=== PATIENT | female | born 1930 | race African-American/Black ===

== ENCOUNTER 2017-08-18 14:47 | Inpatient (IN) | payer OTHER, MEDICARE ==
[~2017-08-18] VITALS: Ht 160 cm; Wt 54.9 kg
[~2017-08-18 14:47] MED LIST: ACULAR 0.5%5 ML OS; ASPIRIN EC81 M1 PO; LISINOPRIL AND1 TA1 PO; MULTI-DAY PLUS1 EAC1 PO; POLYTRIM O200 GTT/BO OP; TRIAMCINOLONE A80 GM TOP; VITAMIN E400 UNI2 PO; XALATAN 0.50 GTT/1 B OPH; XARELTO20 MG PO
[2017-08-18 16:12] LABS: ABSOLUTE BASOPHIL COUNT 0 /CUMM (0.0-0.2); ABSOLUTE EOSINOPHIL COUNT 0 /CUMM (0.0-0.7); ABSOLUTE GRANULOCYTE CT 2.2 /CUMM (1.4-6.5); ABSOLUTE LYMPH COUNT 0.9 /CUMM (1.2-3.4); ABSOLUTE MONOCYTE COUNT 0.3 /CUMM (0.10-0.60); BASOPHIL % 0.5 % (0.0-2.0); EOSINOPHIL % 1.2 % (0-5); GRANULOCYTE % 64.4 % (42.2-75.2); HEMATOCRIT 33.2 % (37-47); MEAN CORPUSCULAR HGB 32.5 PG (27.0-31.0); MEAN CORPUSCULAR VOLUME 98.4 FL (81.0-99.0); MEAN PLATELET VOLUME 8.3 FL (7.4-10.4); RBC DISTRIBUTION WIDTH 12.8 % (11.5-14.5); RED BLOOD CELL CT 3.38 /CUMM (4.20-5.40); WHITE BLOOD CELL COUNT 3.4 /CUMM (4.8-10.8)
[2017-08-18 16:24] LABS: PLATELET COUNT 189 /CUMM (130-400)
--- NOTE | 2017-08-18 17:49 | ED SYNCOPE COMPLAINT ---
History of Present Illness General Chief Complaint: Syncope and Near-Syncope Stated Complaint: ?PRESYNCOPE PER DAUGHTER Source: patient, family, old records Exam Limitations: no limitations Vital Signs & Intake/Output Vital Signs & Intake/Output Vital Signs Date Time Temp Pulse Resp B/P B/P Pulse O2 O2 Flow FiO2 Mean Ox Delivery Rate 08/18 2244 98.4 57 18 154/68 100 Room Air 08/18 1750 Room Air 08/18 1747 98.6 66 18 166/76 100 Room Air 08/18 1453 98.0 80 18 176/88 95 Room Air Allergies Coded Allergies: NO KNOWN ALLERGIES (11/25/15) Triage Note: 86 YEAR OLD FEMALE TO ER WITH HER DAUGHTER, PT OFFERS NO COMPLAINTS AT THIS TIME, DAUGHTER STATES THAT THEY WERE SITTING AT THE KITCHEN TABLE, PT HAD JUST FINISHED EATING WHEN SHE BLACKED OUT, DAUGHTER CALLED 911 AND AMBULANCE CAME, PT WAS AWAKE AND ALERT ON THERE ARRIVAL AND PT REFUSED TO COME TO ER. PT STATES THAT SHE WAS FINE DOES NOT REMEMBER ANYTHING BUT WAKING UP. PT HAS MULTIPLE EPISODES OF SYNCOPE IN THE PAST PER DAUGHTER. DENIES CP/SOB/DIZZINESS, NO COMPLAINTS AT ALL AT THIS TIME Triage Nurses Notes Reviewed? yes Timing: single episode today Precipitating Factors: none Context: EATING Loss of Consciousness: brief (seconds) HPI: 86YO female with hx of afib on eliquis, HTN, PE (02/2016) BIBA from daughter's house for syncopal episode prior to arrival. Patient states that she does not remember the episode well however she does remember waking up after blacking out , unsure about prodromal symptoms. Patient's daughter states that they were having a meal when the patient passed out. Patient was unconscious for under 60 seconds. Patient states that since she came to she has had no symptoms, she feels in her usual state of health. Patient's daughter states that she has had between 4 and 5 previous syncopal episodes which were never evaluated within the past 2 years. The patient denies recent fall or head trauma, chest pain, dyspnea, abdominal pain, fevers, chills, nausea. (Alicia HAWLEY,Shanthi Jones) Reconcile Medications Apixaban (Eliquis) 5 MG TABLET 1 TAB PO BID BLOOD THINNER (Reported) Calcium Carbonate/Vitamin D3 (Calcium 500 + D Tablet) (Unknown Strength) TABLET (Unknown Dose) PO DAILY SUPPLEMENT (Reported) Dorzolamide HCl/Timolol Maleat (Cosopt Eye Drops) 22.3 MG-6.8 MG/ML DROPS 1 GTT OU BID BOTH EYES (Reported) Latanoprost 0.005 % DROPS 1 GTT OU QPM BOTH EYES (Reported) Multivitamin-Min/Iron/FA/Vit K (Multi-Day Plus Minerals Tablet) 18 MG IRON-400 MCG-25 MCG TABLET 1 TAB PO DAILY SUPPLEMENT (Reported) Nifedipine (Nifedipine ER) 60 MG TAB.ER.24 1 TAB PO DAILY BP (Reported) Triamcinolone Acetonide 80 GM OINT...G. 1 KERA TOP BID PRN rash apply to affected area(s) Valsartan/Hydrochlorothiazide (Valsartan-Hctz 160-12.5 MG Tab) 160 MG-12.5 MG TABLET 1 TAB PO DAILY BP (Reported) Vitamin E Mixed (Vitamin E) (Unknown Strength) TABLET (Unknown Dose) PO DAILY SUPPLEMENT (Reported) (Tyesha CHAMPION,Nikhil Yip) Past History Travel History Traveled to [place] past 21 day No Medical History Any Pertinent Medical History? 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 No (Shanthi Black) Review of Systems Review of Systems Constitutional: Reports: no symptoms. EENTM: Reports: no symptoms. Respiratory: Reports: no symptoms. Cardiovascular: Reports: see HPI. GI: Reports: no symptoms. Genitourinary: Reports: no symptoms. Musculoskeletal: Reports: no symptoms. Skin: Reports: no symptoms. Neurological/Psychological: Reports: see HPI. All Other Systems: Reviewed and Negative (Shanthi Black) Physical Exam Physical Exam General Appearance: well developed/nourished, no apparent distress, alert, awake Head: atraumatic, normal appearance Eyes: Bilateral: normal appearance, PERRL, EOMI. Ears, Nose, Throat: normal pharynx, hearing grossly normal Neck: normal inspection, supple, full range of motion Respiratory: normal breath sounds, no respiratory distress, lungs clear Cardiovascular: regular rate/rhythm, normal peripheral pulses Gastrointestinal: normal bowel sounds, soft, non-tender, no organomegaly Back: normal inspection, normal range of motion Extremities: normal inspection, normal range of motion, no edema Psychiatric: awake, alert, oriented x 3 Cranial Nerves: normal hearing, normal speech, PERRL, CN II-XII normal as tested Motor/Sensory: no motor/sensory deficits Skin: intact, normal color, warm/dry Core Measures ACS in differential dx? Yes CVA/TIA Diagnosis: No Sepsis Present: No Sepsis Focused Exam Completed? No (Alicia HAWLEY,Shanthi Jones) Progress Differential Diagnosis: AMI, aortic valve, drug induced syncope, orthostatic syncope, pulmonary embolus, seizure, TIA/CVA, vasodepressor syncope Plan of Care: Orders Procedure Date/time Status Nothing by Mouth 08/19 B Active Patient Data 08/18 2229 Active Saline Lock 08/18 2225 Active Misc Message 08/18 2225 Active ED Holding Orders 08/18 222 Active Vital Signs 08/18 2225 Active Code Status 08/[address] in observation 08/18 2225 Active TROPONIN LEVEL 08/18 1905 Complete EKG 08/18 1905 Active MISTAKE 08/18 1815 Active Add-on Test (ER Only) 08/18 1807 Active D-DIMER 08/18 1604 Complete TROPONIN LEVEL 08/18 1459 Complete COMPREHENSIVE METABOLIC PANEL 08/18 1459 Complete CBC WITHOUT DIFFERENTIAL 08/18 1459 Complete EKG 08/18 1459 Active Laboratory Tests 08/18/17 1912: Troponin I 0.02 08/18/17 1604: Anion Gap 16, Estimated GFR 36 L, BUN/Creatinine Ratio 18.6, Glucose 114 H, Calcium 10.1, Total Bilirubin 0.6, AST 31, ALT 28, Alkaline Phosphatase 56, Troponin I 0.02, Total Protein 7.9, Albumin 4.2, Globulin 3.7, Albumin/Globulin Ratio 1.1, D-Dimer High Sensitivty 658 H, CBC w Diff NO MAN DIFF REQ, RBC 3.38 L, MCV 98.4, MCH 32.5 H, MCHC 33.0, RDW 12.8, MPV 8.3, Gran % 64.4, Lymphocytes % 25.6, Monocytes % 8.3, Eosinophils % 1.2, Basophils % 0.5, Absolute Granulocytes 2.2, Absolute Lymphocytes 0.9 L, Absolute Monocytes 0.3, Absolute Eosinophils 0, Absolute Basophils 0 Given the patient's syncopal episode she will likely require hospital admission and cardiology consult. The patient was signed out to Dr. Arambula pending CTA and hospital admission. Spoke with Dr. Otoole regarding this patient - requests offical consultation from house staff. Diagnostic Imaging: Viewed by Me: Radiology Read. Discussed w/RAD: Radiology Read. Radiology Impression: PATIENT: RENETTA MCDONALD PRESENT AGE: 86 PATIENT ACCOUNT NO: [id number] : 31 LOCATION: [facility] ORDERING PHYSICIAN: Shanthi HAWLEY SERVICE DATE: 08/18/17 EXAM TYPE: RAD - XRY-CHEST XRAY, TWO VIEWS EXAMINATION: XR CHEST CLINICAL INFORMATION: Syncopal episode. COMPARISON: None TECHNIQUE: 2 views of the chest were obtained. The lateral view was repeated. FINDINGS: There is no focal consolidation, edema, or effusion. There is no pneumothorax. There is mild cardiomegaly. There are multilevel degenerative changes in the thoracic spine. There is mild dextroscoliotic curvature. IMPRESSION: Mild cardiomegaly. No consolidation in the chest. DICTATED BY: Alex Breaux MD DATE/TIME DICTATED:08/18/171842 [employer]:[facility] DATE/TIME TRANSCRIBED:08/18/171842 CONFIDENTIAL, DO NOT COPY WITHOUT APPROPRIATE AUTHORIZATION. <Electronically signed in Other Vendor System> SIGNED BY: Alex Breaux MD 08/18/171848 Initial ED EKG: sinus rhythm @66bpm, first degree AV block, RBBB, nonspecific ST changes Prior EKG: unchanged (05/22/15) Repeat EKG: unchanged Hand-Off Endorsed To: Nikhil Arambula MD Endorsed Time: 2023 Pending: CT (Shanthi Black) Departure Departure Disposition: STILL A PATIENT Condition: Stable Referrals: Martha Bocanegra APRN (PCP/Family) Departure Forms: Customer Survey General Discharge Information (Shanthi Black) Departure Clinical Impression Primary Impression: Syncopal episodes Secondary Impressions: Pulmonary emboli Comments 08.18.17, 21:03... discussed with [facility]... pt with rll subsegmental PE's, "very low burden" Observation Note Sp[facility] Patient In: Non-ED OBS Care Area Rationale for Observation: My rational for observation is as follows . likely pulmonary emboli are old and would not be responsible necessarily for her syncopal episode... pt merits monitoring, serial trops/ekg's, cards eval in AM, would consider obtaining old records to evaluate if PE is new vs old. PA/ADVERTISING DIRECTOR Co-Sign Statement Statement: ED Attending supervision documentation- [x] I saw and evaluated the patient. I have also reviewed all the pertinent lab results and diagnostic results. I agree with the findings and the plan of care as documented in the PA's/ADVERTISING DIRECTOR's documentation. 08/18/17, 21:15pm... discussed with family... likely pulmonary emboli are old and would not be responsible necessarily for her syncopal episode... pt merits monitoring, serial trops/ekg's, cards eval in AM, would consider obtaining old records to evaluate if PE is new vs old. [] I have reviewed the ED Record and agree with the PA's/ADVERTISING DIRECTOR's documentation. [] Additions or exceptions (if any) to the PAs/ADVERTISING DIRECTOR's note and plan are summarized below: [] (Tyesha CHAMPION,Nikhil Yip) Critical Care Note Critical Care Note Critical Care Time: 30-74 min (Tyesha CHAMPION,Nikhil Yip)
[2017-08-18] MEDS ORDERED: VALSARTAN-HCTZ1 EAC1 PO (18:35)
[2017-08-18] MEDS ORDERED: ELIQUIS5 M1 PO (18:36)
[2017-08-18] MEDS ORDERED: NIFEDIPINE ER60 M2 PO (18:36)
[2017-08-18] MEDS ORDERED: CALCIUM 500 +1 EAC5 PO (18:37)
--- NOTE | 2017-08-18 18:49 | RADIOLOGY REPORT ---
EXAMINATION: XR CHEST CLINICAL INFORMATION: Syncopal episode. COMPARISON: None TECHNIQUE: 2 views of the chest were obtained. The lateral view was repeated. FINDINGS: There is no focal consolidation, edema, or effusion. There is no pneumothorax. There is mild cardiomegaly. There are multilevel degenerative changes in the thoracic spine. There is mild dextroscoliotic curvature. IMPRESSION: Mild cardiomegaly. No consolidation in the chest.
[2017-08-18] MEDS ORDERED: COSOPT EYE DROP10 ML OU (19:36)
[2017-08-18] MEDS ORDERED: LATANOPROST2.5 ML OU (20:25)
--- NOTE | 2017-08-18 22:38 | CT SCAN REPORT ---
EXAMINATION: CT ANGIOGRAM OF THE CHEST WITH AND WITHOUT CONTRAST (CT PULMONARY ANGIOGRAM FOR PE) CLINICAL INFORMATION: Reason for Study:
Presumptive Dx: R/O PE
Signs Symptoms: SYNCOPAL EPISODE, +D-DIMER
COMPARISON: None TECHNIQUE: Prior to contrast administration, noncontrast localization images were obtained. Subsequently, multidetector volumetric imaging was performed from the thoracic inlet to below the diaphragms following the administration of 80 mL Omnipaque 350 intravenous contrast. No contrast reaction reported. Sagittal, coronal, and MIP oblique sagittal reformatted images were obtained on the CT workstation, uploaded to PACS, and reviewed. Small filling defect right lower lobe segmental artery consistent with areas of pulmonary embolism. Another segment in the right lower lobe is seen. Small burden. Imaging of the lung hutson. Centrally there is no bulky adenopathy. Right lung; No large area of infiltrate. There is no effusion. Left lung; Some patchy groundglass change left base may be related to infiltrate. Small nodule left upper lung. Image 12. 3 mm. 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 IMPRESSION: Positive for PE in a few segments in the right lower lobe as described. Some patchy left lower lung infiltrate. Small 3 mm nodule density left upper lung. If there are risk factors for lung malignancy recommend 9 month to one year low-dose follow-up This critical result was discussed with Dr. Arambula at 9:04 PM on 08/18/2017 and it was ascertained that the content and urgency of the report was understood at the time of direct communication.
[2017-08-19] MEDS ORDERED: ELIQUIS2.5 M1 PO (01:04)
--- NOTE | 2017-08-19 02:00 | History & Physical ---
Paulino CHAMPION,[facility] 08/19/17 0200: General Information and HPI MD Statement: I have seen and personally examined RENETTA TADEO and documented this H&P. The patient is a 86 year old F who presented with a patient stated chief complaint of [syncope]. Source of Information: patient, family Exam Limitations: no limitations History of Present Illness: Mr. 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 fib(May 2017) on Eliquis presents with a syncopal episode around 7 PM today. Most of the history was provided by the daughter, who states that patient was at her house and right after eating dinner around 7 PM she had an episode of loss of consciousness lasting for 60 seconds. The daughter lowered her to the floor and called 911. Patient did not hit her head. Also denies any lightheadedness/ dizziness, chest pain, palpitations, shortness of breath, or seizure-like activity. Patient has had multiple syncopal episodes in the past(recent in May 2017) but has never been worked up. Patient does not have any smoking history and also denies any recent travel or prolonged period of inactivity( According to the family the patient is very active at baseline). Patient is up- to-date with her mammograms but has never had a colonoscopy in the past. Denies any loss of appetite or recent weight loss. Patient was treated with Xarelto for 3 months in 2014 for DVT and right sided PE. No further workup was done to find out the underlying cause. Allergies/Medications Allergies: Coded Allergies: NO KNOWN ALLERGIES (UNKNOWN 08/18/17) Home Med list Apixaban (Eliquis) 2.5 MG TABLET 1 TAB PO BID afib (Reported) Calcium Carbonate/Vitamin D3 (Calcium 500 + D Tablet) (Unknown Strength) TABLET (Unknown Dose) PO DAILY SUPPLEMENT (Reported) Dorzolamide HCl/Timolol Maleat (Cosopt Eye Drops) 22.3 MG-6.8 MG/ML DROPS 1 GTT OU BID BOTH EYES (Reported) Latanoprost 0.005 % DROPS 1 GTT OU QPM BOTH EYES (Reported) Multivitamin-Min/Iron/FA/Vit K (Multi-Day Plus Minerals Tablet) 18 MG IRON-400 MCG-25 MCG TABLET 1 TAB PO DAILY SUPPLEMENT (Reported) Nifedipine (Nifedipine ER) 60 MG TAB.ER.24 1 TAB PO DAILY BP (Reported) Triamcinolone Acetonide 80 GM OINT...G. 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 Home Smoking Status: Never Smoked ETOH Use: denies use Illicit Drug Use: denies illicit drug use Functional Ability ADLs Independent: dressing, eating, toileting, bathing. Ambulation: cane Review of Systems Review of Systems Constitutional: Reports: no symptoms. EENTM: Reports: no symptoms. Cardiovascular: Reports: no symptoms. Respiratory: Reports: no symptoms. GI: Reports: no symptoms. Genitourinary: Reports: no symptoms. Musculoskeletal: Reports: no symptoms. Skin: Reports: no symptoms. Neurological/Psychological: Reports: no symptoms. Hematologic/Endocrine: Reports: no symptoms. Immunologic/Allergic: Reports: no symptoms. All Other Systems: Reviewed and Negative Exam & Diagnostic Data Last 24 Hrs of Vital Signs/I&O Vital Signs Date Time Temp Pulse Resp B/P B/P Pulse O2 O2 Flow FiO2 Mean Ox Delivery Rate 08/19 0558 98.2 57 20 138/70 99 08/19 0208 98.5 59 20 178/82 99 08/19 0117 96.8 54 18 151/70 100 Room Air 08/18 2244 98.4 57 18 154/68 100 Room Air 08/18 1750 Room Air 08/18 1747 98.6 66 18 166/76 100 Room Air 08/18 1453 98.0 80 18 176/88 95 Room Air Intake & Output 08/19 0800 08/19 0000 08/18 1600 Intake Total Output Total 200 Balance -200 Output, Urine 200 Patient 121 lb 130 lb Weight Physical Exam General Appearance Alert, Oriented X3, Cooperative, No Acute Distress Skin No Rashes, No Breakdown HEENT Atraumatic, PERRLA, EOMI, Mucous Membr. moist/pink Cardiovascular Regular Rate, Normal S1, Normal S2 Lungs Clear to Auscultation, Normal Air Movement Abdomen Normal Bowel Sounds, Soft, No Tenderness Neurological Normal Speech, Strength at 5/5 X4 Ext, Normal Tone, Sensation Intact, Cranial Nerves 3-12 NL Last 24 Hrs of Labs/Sam: Laboratory Tests 08/19/17 0110: Troponin I 0.02 08/18/17 1912: Troponin I 0.02 08/18/17 1604: Anion Gap 16, Estimated GFR 36 L, BUN/Creatinine Ratio 18.6, Glucose 114 H, Calcium 10.1, Total Bilirubin 0.6, AST 31, ALT 28, Alkaline Phosphatase 56, Troponin I 0.02, Total Protein 7.9, Albumin 4.2, Globulin 3.7, Albumin/Globulin Ratio 1.1, D-Dimer High Sensitivty 658 H, CBC w Diff NO MAN DIFF REQ, RBC 3.38 L, MCV 98.4, MCH 32.5 H, MCHC 33.0, RDW 12.8, MPV 8.3, Gran % 64.4, Lymphocytes % 25.6, Monocytes % 8.3, Eosinophils % 1.2, Basophils % 0.5, Absolute Granulocytes 2.2, Absolute Lymphocytes 0.9 L, Absolute Monocytes 0.3, Absolute Eosinophils 0, Absolute Basophils 0 Diagnostic Data EKG Results Normal sinus rhythm with first-degree AV block and right bundle branch block Heart rate 66 CXR Results FINDINGS: There is no focal consolidation, edema, or effusion. There is no pneumothorax. There is mild cardiomegaly. There are multilevel degenerative changes in the thoracic spine. There is mild dextroscoliotic curvature. IMPRESSION: Mild cardiomegaly. No consolidation in the chest. Other Results CTA CHEST-PULMONARY EMBOLISM IMPRESSION: Positive for PE in a few segments in the right lower lobe as described. Some patchy left lower lung infiltrate. Small 3 mm nodule density left upper lung. If there are risk factors for lung malignancy recommend 9 month to one year low-dose follow-up Assessment/Plan Assessment: Mr. 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 fib(May 2017) on Eliquis presents with a syncopal episode around 7 PM today. Problem List 1. Pulmonary embolism; New vs Old. Patient had a right-sided pulmonary embolism in 2014, and was treated with Xarelto for 3 months. Could be a residual from her old PE. 2. History of atrial fibrillation on Eliquis 3. History of stroke - We'll observe the patient on telemetry floor for 24 to 48 hrs. - We will continue Eliquis 2.5 mg twice a day. - Trop and EKG 3 to rule out ACS. - Echocardiogram was done 2 weeks ago, no repeat echocardiogram. - Cardiology consult - Orthostatic vitals - Obtain records from [facility] [place] regarding previous PE. - Continue home medications DVT prophylaxis; on Eliquis Patient is full code As Ranked By This Provider Problem List: 1. Pulmonary emboli 2. Syncopal episodes Core Measures/Misc (02/13) Acute Coronary Syndrome ACS Diagnosis: No Congestive Heart Failure Congestive Heart Failure Diagnosis No Cerebrovascular Accident CVA/TIA Diagnosis: No VTE (View Protocol) VTE Risk Factors Age>40 No Mechanical VTE Prophylaxis d/t N/A MechProphylax Ordered No VTE Pharm Prophylaxis d/t NA PharmProphylax ordered Sepsis (View protocol) Sepsis Present: No Corby Yen 08/19/17 0242: Resident Review Statement Resident Statement: examined this patient, discussed with internal combustion engine subassembler, agreed with internal combustion engine subassembler, discussed with family, reviewed EMR data (avail), discussed with nursing , discussed with case mgmt, reviewed images, amended to note Other Findings: This is a 56-year-old male with past medical history significant for hypertension, history of pulmonary embolism in 2014 treated with xaralto for 3 months, atrial fibrillation diagnosed in May 2017 taking eliqus 2.5 twice daily, history of stroke 2014, 2016, recurrent episodes of syncope presented to the hospital for evaluation of an episode of syncope this evening. Patient was brought in by ambulance from daughter's house for an episode of syncope prior to that level. Patient's daughter states that they were having a meal when she passed out. She was unconscious for almost 60 seconds. She helped the patient to lie on the ground. Denies hitting head. Denies any bladder or bowel incontinence, tongue bite. Denies any prior history of seizures. Patient denied any dizziness or lightheadedness prior to the event. She feels in her usual state of health prior to the event. Patient family also reports that she has previous syncopal episodes for last few months. They were not sure whether her syncopal episodes are evaluated or not. Patient denies any chest pain, palpitations, fever, chills, productive cough, short of breath, dizzy or lightheaded, nausea, vomiting, abdominal pain, change in bladder or bowel habits. She denies smoking, alcohol abuse, illicit drug abuse. Patient reports that she was diagnosed with bilateral DVT and right-sided pulmonary embolism in 2014 when she was in [place], she was given anticoagulation, xaralto for 3 months. Patient denies any family history of stroke, clotting disorders. She reports that she had stroke once in 2014 and 2015, used to follow-up with Dr. Kauffman in the past. Denies any history of seizures. Patient reports that she was diagnosed with atrial fibrillation in May 2017. She follows up with Dr. Fenton group for cardiology. Patient was on Holter monitor for 2 weeks. She reverted to sinus rhythm. However because of high risk of stroke she was started on anticoagulation/eliqus 2.5 twice daily. vitals afebrile, heart rate 57, respiratory rate 18, blood pressure 154/68 ,saturating at 100 on room air. On exam HEENT within normal limit, S1-S2 normal, regular pulse, no murmur, bilateral breath sounds normal, Abdomen soft, nontender, nondistended. She is alert awake and oriented 3. Cranial nerve exam intact. No motor or sensory deficits. Mild noticeable left- sided facial droop from old stroke. Pertinent labs WBC 3.1, hemoglobin 11, hematocrit 30, platelet 183 BUN 26 and creatinine 1.4, creatinine 1.6 in 2015 EKG sinus rhythm, rate 71, first-degree AV block, FL interval 252, no acute ST-T wave changes Chest x-ray findings suggestive of mild cardiomegaly. D-dimer is elevated 658 -------- 1. Recurrent syncopal episodes Patient presented with an episode of witnessed syncope this evening which lasted for 60 seconds. Patient family also reports that she has 3-4 syncopal episodes for last few months. They were not sure whether her syncopal episodes are evaluated or not by her office machine servicer. Troponin was negative. EKG shows sinus rhythm with first-degree AV block, FL interval 252 * We'll place her under observation in telemetry floor for recurrent syncopal episodes * Continuous telemetry monitoring * vitals every shift * Serial troponins and EKG * Orthostatic vitals in the a.m. * Cardiology consult * Echo records from cardiology office 2. History of atrial fibrillation/reverted to sinus? Patient reports that she was diagnosed with atrial fibrillation in May 2017. She follows up with Dr. Fenton group for cardiology work up. Patient was on Holter monitor for 2 weeks. She reverted to sinus rhythm. However because of high risk of stroke she was started on anticoagulation/eliqus 2.5 twice daily. * EKG in ER showed sinus rhythm. * continue on eliqus 2.5 twice daily * Hold echocardiogram for now,underwent recent echo 2 weeks back * Serial troponin and EKG * Continuous telemetry monitoring * Follow-up cardiology recommendations in the a.m. 3. Old versus new pulmonary embolism? Patient was found to have elevated d-dimer at the time of admission. CTA chest was done which showed Small filling defect right lower lobe segmental artery consistent with areas of pulmonary embolism. Patient reports that she was diagnosed with bilateral DVT and right-sided pulmonary embolism in 2014 when she was in [place], she was given anticoagulation, xaralto for 3 months. Patient denies any family history of clotting disorders. She denies any recent surgery, immobilization. Off note she is working with physical therapy right now. Denies any travel history, cancer history, clotting disorder, history of clots in the family. * Not sure whether this is old PE versus new pulmonary embolism. * Will continue on eliqus for now * Please get records from [facility] about pulmonary embolism Chronic kidney disease with baseline creatinine 1.6. Hypertension continue losartan and hydrochlorothiazide 12.5 mg daily Patient is full code Regular diet DVT prophylaxis- bonita Griffith MD, [facility] 08/19/17 0538: Attending MD Review Statement Attending Statement Attending MD Statement: examined this patient, discuss w/resident/PA/DENTURE WAXER, agreed w/resident/PA/DENTURE WAXER, discussed with family, reviewed images, amended to note Attending Assessment/Plan: 86 yo F with h/o HTN, glaucoma, CKD, DVT/ PE (2014) treated with xarelto for 3 months, stroke x 2 with residual left facial droop, recently diagnosed with Afib on eliquis is brought in for evaluation of syncopal episode. Patient was having supper with family, when she passed out for about a minute. Daughter helped to lay the patient on the floor, no head strike. No seizure activity. Patient was not confused and denied any prodromal symptoms. Patient has had 2 other similar syncopal episodes, one such was in Apr 2015 after which she follows up with Neurology who stated patient has had a stroke. Patient was previously living at [place] where she was treated for the DVT/ PE but never investigated for the cause. Family reports it was a right sided PE. Patient follows with Dr. White, was diagnosed with Afib in May 2017. She had a holter monitor and an echo done recently. Vitals stable. Neuro exam as above. Labs: WBC 3.4, elevated d-dimer, BUN 26, creat 1.4 (baseline), trop neg. CXR: mild cardiomegaly, no consolidation. CTA chest: small filling defect right lower lobe segmental artery and another segment in right lower lobe small pulmonary embolism. Patchy left lower lung infiltrate, left lung nodule. EKG: sinus rhythm, first degree heart block, RBBB, Qtc 537. Assessment and plan: 1. Recurrent syncopal episode 2. Small pulmonary embolism in RLL low burden 3. History of Afib, now in sinus rhythm 4. History of PE and DVT unclear if these small PE's are residual or new - 23 hour observation on Telemetry - Monitor for arrhythmias - Fall precautions - Serial EKG and troponin - Check orthostats - Cardio consult - Obtain outpatient echo results - Please obtain CT imaging records from [facility], this will help compare current imaging and decide if this is a failure of anticoagulation or a residual chronic PE. - Patient should follow up with a Weather Reporter for evaluatin cause of the PE - Continue eliquis for now - PT therapy - Resume all home meds DVT ppx Eliquis. Full code. Observation Initial Note - I have personally examined RENETTA TADEO on 08/19/17 at 0538. The disposition of RENETTA TADEO is uncertain at this time and before a determination can be made, she requires a period of observation for the following reasons [Syncope]
[2017-08-19 02:08] VITALS: BP 178/82
[2017-08-19 05:58] VITALS: BP 138/70
[2017-08-19 08:14] LABS: ABSOLUTE BASOPHIL COUNT 0 /CUMM (0.0-0.2); ABSOLUTE EOSINOPHIL COUNT 0.1 /CUMM (0.0-0.7); ABSOLUTE GRANULOCYTE CT 1.3 /CUMM (1.4-6.5); ABSOLUTE LYMPH COUNT 1.2 /CUMM (1.2-3.4); ABSOLUTE MONOCYTE COUNT 0.4 /CUMM (0.10-0.60); EOSINOPHIL % 1.8 % (0-5); GRANULOCYTE % 43.9 % (42.2-75.2); MEAN CORPUSCULAR HGB 32.6 PG (27.0-31.0); MEAN CORPUSCULAR HGB CONC 33.3 G/DL (33.0-37.0); MEAN CORPUSCULAR VOLUME 98.1 FL (81.0-99.0); MEAN PLATELET VOLUME 8.3 FL (7.4-10.4); RBC DISTRIBUTION WIDTH 13.3 % (11.5-14.5); RED BLOOD CELL CT 2.81 /CUMM (4.20-5.40); WHITE BLOOD CELL COUNT 3.1 /CUMM (4.8-10.8)
[2017-08-19 08:58] LABS: HEMATOCRIT 27.6 % (37-47)
[2017-08-19 08:59] LABS: PLATELET COUNT 153 /CUMM (130-400)
--- NOTE | 2017-08-19 10:02 | PN- Housestaff ---
Abel CHAMPION,[facility] 08/19/17 1002: Subjective Follow-up For: -Syncopal episode -Recently diagnosed Erika luis currently on sinus rhythm -Recurrent bradycardia -History of PE- Tele-Events Since Last Visit: Normal sinus rhythm with a recurrent episode of bradycardia Subjective: Hemodynamically stable but mildly hypertensive. Saturating well on room air. Denies any current active complaints. No acute overnight events were reported Review of Systems Constitutional: Reports: see HPI. Objective Last 24 Hrs of Vital Signs/I&O Vital Signs Date Time Temp Pulse Resp B/P B/P Pulse O2 O2 Flow FiO2 Mean Ox Delivery Rate 08/19 08 57 154/72 08/19 0822 57 154/72 08/19 0558 98.2 57 20 138/70 99 08/19 0208 98.5 59 20 178/82 99 08/19 0117 96.8 54 18 151/70 100 Room Air 08/18 2244 98.4 57 18 154/68 100 Room Air 08/18 1750 Room Air 08/18 1747 98.6 66 18 166/76 100 Room Air 08/18 1453 98.0 80 18 176/88 95 Room Air Intake & Output 08/19 1600 08/19 0800 08/19 0000 Intake Total Output Total 200 Balance -200 Output, Urine 200 Patient 54.97 kg Weight Physical Exam General Appearance: Alert, Oriented X3, Cooperative, No Acute Distress Skin: No Rashes HEENT: Atraumatic, PERRLA, EOMI, Mucous Membr. moist/pink Neck: No JVD Cardiovascular: Regular Rate, Normal S1, Normal S2, No Murmurs Lungs: Clear to Auscultation, Normal Air Movement Abdomen: Soft, No Tenderness Neurological: Normal Speech Extremities: No Clubbing, No Cyanosis, No Edema Current Medications: Current Medications Sig/Sarah Start time Last Medication Dose Route Stop Time Status Admin Acetaminophen 650 MG Q6P PRN 08/18 2330 AC PO Apixaban 2.5 MG BID 08/18 2358 DC 08/19 PO 0822 Cholecalciferol 1,000 IU DAILY 08/19 1000 AC 08/19 PO 0822 Dorzolamide HCl 1 GTT BID 08/18 2326 AC 08/19 OPH 0822 Hydrochlorothiazide 12.5 MG DAILY 08/20 1000 AC PO Latanoprost 1 GTT QPM 08/19 2200 AC OPH Losartan Potassium 50 MG DAILY 08/19 1000 AC 08/19 PO 0822 Multivitamins 1 TAB DAILY 08/19 1000 AC 08/19 PO 08 Nifedipine 60 MG DAILY 08/19 1000 AC 08/19 PO 0822 Potassium Chloride 40 MEQ ONCE ONE 08/19 0900 DC 08/19 PO 08/19 0901 1013 Last 24 Hrs of Lab/Sam Results Last 24 Hrs of Labs/Mics: Laboratory Tests 08/19/17 0630: Anion Gap 13, Estimated GFR 47 L, BUN/Creatinine Ratio 20.9, CBC w Diff NO MAN DIFF REQ, RBC 2.81 L, MCV 98.1, MCH 32.6 H, MCHC 33.3, RDW 13.3, MPV 8.3, Gran % 43.9, Lymphocytes % 39.5, Monocytes % 13.8 H, Eosinophils % 1.8, Basophils % 1.0, Absolute Granulocytes 1.3 L, Absolute Lymphocytes 1.2, Absolute Monocytes 0.4, Absolute Eosinophils 0.1, Absolute Basophils 0 08/19/17 0110: Magnesium 1.8, Iron 68, TIBC 318, Ferritin 44.8, Troponin I 0.02, Vitamin B12 953 H, Folate > 20.0 H 08/18/17 1912: Troponin I 0.02 08/18/17 1604: Anion Gap 16, Estimated GFR 36 L, BUN/Creatinine Ratio 18.6, Glucose 114 H, Calcium 10.1, Total Bilirubin 0.6, AST 31, ALT 28, Alkaline Phosphatase 56, Troponin I 0.02, Total Protein 7.9, Albumin 4.2, Globulin 3.7, Albumin/Globulin Ratio 1.1, D-Dimer High Sensitivty 658 H, CBC w Diff NO MAN DIFF REQ, RBC 3.38 L, MCV 98.4, MCH 32.5 H, MCHC 33.0, RDW 12.8, MPV 8.3, Gran % 64.4, Lymphocytes % 25.6, Monocytes % 8.3, Eosinophils % 1.2, Basophils % 0.5, Absolute Granulocytes 2.2, Absolute Lymphocytes 0.9 L, Absolute Monocytes 0.3, Absolute Eosinophils 0, Absolute Basophils 0 Assessment/Plan Assessment: 86-year-old female with a past medical history of HTN, PE in 2015, X2 stroke in 2015 & 2016, recent diagnosed Afib, first-degree heart block and RBBB, who presented because of recurrent episodes of syncopal. The patient denies prodromal symptom such as dizziness, lightheadedness, palpitation, or headache. The episode lasts for a minute and is not associated with seizure activity, tongue biting, or loss of control over bowel or urine habits. Post episode she alert and oriented without any confusion, weakness or numbness. CTA was done given the syncopal and history of PE and reveal small PE, however the patient denies shortness breath, chest pain, and she is on the Eliquis for A. fib. Orthostatic hypotension is unlikely given high blood pressure, negative orthostatic pressure, and no dizziness prior to the episode. No seizure activity was observed which make seizure unlikely however if the syncopal happened during hospital stay we will send for prolactin level. Given the history of A. fib, RBBB, and observed bradycardia cardiology was consulted and he recommended repeating echocardiogram. He discussed the risk and benefits of pacemaker given that her symptoms most likely related to cardiac conduction abnormality. Problems * Recurrent syncopal episodes * Atrial fibrillation on the liquids currently on sinus rhythm * First-degree heart block/RBBB * PE on CAT scan currently the liquids for A. fib * History of PE and DVT in 2014. * HTN * Hypokalemia * Normocytic normochromic anemia with MCV on the upper border of normal * Elevated creatinine Plan * We will switch to full admission on telemetry floor to monitor heart rate and rhythm * We will order lower extremity Doppler ultrasound to rule out DVTs * We will obtain records about previous PE to differentiate acute VS old PE * Patient will be scheduled for pacemaker placement next Tuesday * Repeat echocardiogram as per [facility] * Nothing by mouth on Tuesday midnight * We'll DC the Eliquis and start IV heparin bridging tomorrow morning after discussing with attending * Repeat CBCs tomorrow * Add iron study, B12 and folic acid(high MCV) * Guaiac test * Potassium was repleted, creatinine improved, we will check BEP tomorrow * We will add magnesium given hypokalemia. * Full code * Heart healthy diet * DVT prophylaxis with subcutaneous heparin starting tomorrow given that she was in the eliquis until this morning Problem List: 1. Syncopal episodes Pain Ratin Pain Location: NA Pain Goal: Remain pain free Pain Plan: See assessment and plan Tomorrow's Labs & Rationales: Repeat BEP to follow potassium and kidney function Luciana CHAMPION,Tadeo 08/19/17 1155: Attending MD Review Statement Attending Statement Attending MD Statement: examined this patient, discuss w/resident/PA/HEALTH SCIENCE INSTRUCTOR, agreed w/resident/PA/HEALTH SCIENCE INSTRUCTOR, discussed with family, reviewed EMR data (avail), discussed with nursing, discussed with case mgmt, amended to note Attending Assessment/Plan: Patient seen and examined. Resting comfortably not in any acute distress. Daughter present at the bedside. Denies shortness of breath or palpitations. Denies dizziness. Denies chest pain. Denies cough. She is not requiring oxygen supplementation. On telemetry monitoring she is noted to be bradycardic. EKG is on telemetry tracing discussed with the cardiology service. Patient has a history of significant conduction disease. She has had recurrent episodes of syncope prior to this hospitalization. On examination she is alert and oriented 3. She is very pleasant. She has no focal neurologic deficit. Heart sounds are regular. Lungs are clear to auscultation bilaterally. Abdomen is soft and nontender with normal bowel sounds. She has no peripheral edema. 1. Recurrent syncope with sinus bradycardia and known history of significant conduction disease on ECG 2. Prior DVT/pulmonary embolism in 2014, with right segmental pulmonary embolism noted this admission. 3. Paroxysmal atrial fibrillation on Eliquis 4. Remote CVA 5. Hypertension 6. History of mild aortic dilatation Plan: -Cardiology consultation appreciated. Given her recurrent syncope and conduction disease with ongoing bradycardia permanent pacemaker placement is indicated at this time. Patient and family and agreement with this procedure. -Anticoagulation therapy will be held starting today. She will receive heparin bridging starting Tuesday. She will be n.p.o. after midnight Tuesday for permanent pacemaker placement Tuesday. -Given the lack of any pulmonary symptoms, hemodynamic stability and lack of hypoxia it is unlikely that the pulmonary embolism identified on imaging yesterday is the cause of her recurrent syncope. Despite the absence of pulmonary symptoms, it is noted that when she was diagnosed with DVT/pulmonary embolism in 2014 patient reported having no symptoms at that time. We however do not have records for evaluation. She stated at that time she presented to the hospital for evaluation of lower extremity swelling. -We will obtain Dopplers of lower extremity. If Dopplers do confirm presence of pulmonary embolism will consider increasing the dose of her Eliquis versus transitioning to a different anticoagulation agent. -She is noted to be anemic. No previous studies for comparison. She denies black or bloody stools. Patient reports that she has not had screening colonoscopy done in the past. Check stool for occult blood. Repeat hemoglobin tomorrow morning to ensure that it is stable. If he continues to trend downward she will require further workup. Check iron profile. -Change status to inpatient level of care.
--- NOTE | 2017-08-19 11:38 | Cons- Cardiology ---
General Information and HPI Consulting Request Date of Consult: 08/19/17 Requested By: Nacho CHAMPION,Abel Reason for Consult: Syncope, bradycardia Primary hyster machine operator: Francis White MD [facility] Source of Information: patient, family, old records History of Present Illness: This is a pleasant 86-year-old female with a known history of asymptomatic conduction disease including first-degree AV block/right bundle branch block, prior DVT/pulmonary embolism in 2014 ([place]), paroxysmal atrial fibrillation on Eliquis, remote CVA, hypertension, and mild aortic dilatation who presents to [facility] with a chief complaint of recurrent syncope. I had seen the patient in May and did a Holter monitor which did show evidence of asymptomatic conduction disease with some periods of Wenckebach. Since that visit she has had 3 syncopal episodes which were short in duration and not associated with any trauma; she does not remember the events well but does not report any recent shortness of breath or chest pain. No evidence of incontinence or obvious seizure-like activity. No obvious precipitating events prior to these episodes. Allergies/Medications Allergies: Coded Allergies: NO KNOWN ALLERGIES (UNKNOWN 08/18/17) Home Med List: Apixaban (Eliquis) 2.5 MG TABLET 1 TAB PO BID afib (Reported) Calcium Carbonate/Vitamin D3 (Calcium 500 + D Tablet) (Unknown Strength) TABLET (Unknown Dose) PO DAILY SUPPLEMENT (Reported) Dorzolamide HCl/Timolol Maleat (Cosopt Eye Drops) 22.3 MG-6.8 MG/ML DROPS 1 GTT OU BID BOTH EYES (Reported) Latanoprost 0.005 % DROPS 1 GTT OU QPM BOTH EYES (Reported) Multivitamin-Min/Iron/FA/Vit K (Multi-Day Plus Minerals Tablet) 18 MG IRON-400 MCG-25 MCG TABLET 1 TAB PO DAILY SUPPLEMENT (Reported) Nifedipine (Nifedipine ER) 60 MG TAB.ER.24 1 TAB PO DAILY BP (Reported) Triamcinolone Acetonide 80 GM OINT...G. 1 KERA TOP BID PRN rash apply to affected area(s) Valsartan/Hydrochlorothiazide (Valsartan-Hctz 160-12.5 MG Tab) 160 MG-12.5 MG TABLET 1 TAB PO DAILY BP (Reported) Vitamin E Mixed (Vitamin E) (Unknown Strength) TABLET (Unknown Dose) PO DAILY SUPPLEMENT (Reported) Current Medications: Current Medications Sig/Sarah Start time Last Medication Dose Route Stop Time Status Admin Acetaminophen 650 MG Q6P PRN 08/18 2330 AC PO Apixaban 2.5 MG BID 08/18 2358 AC 08/19 PO 0822 Cholecalciferol 1,000 IU DAILY 08/19 1000 AC 08/19 PO 0822 Dorzolamide HCl 1 GTT BID 08/18 2326 AC 08/19 OPH 0822 Hydrochlorothiazide 12.5 MG DAILY 08/20 1000 AC PO Latanoprost 1 GTT QPM 08/19 2200 AC OPH Losartan Potassium 50 MG DAILY 08/19 1000 AC 08/19 PO 0822 Multivitamins 1 TAB DAILY 08/19 1000 AC 08/19 PO 0822 Nifedipine 60 MG DAILY 08/19 1000 AC 08/19 PO 0822 Potassium Chloride 40 MEQ ONCE ONE 08/19 0900 DC 08/19 PO 08/19 0901 1013 Review of Systems Review of Systems: Review of systems as per HPI. The remainder of a 10 point review of systems was reviewed and was otherwise negative. Past History Travel History Traveled to [place] past 21 day No Medical History Blood Transfusion Hx: No Neurological: CVA EENT: macular degeneration Cardiovascular: AFIB, hypertension Respiratory: pulmonary embolism Gastrointestinal: NONE Hepatic: NONE Renal: NONE Musculoskeletal: NONE Psychiatric: NONE Endocrine: NONE Blood Disorders: DVT Cancer(s): NONE BEAN [employer]OUT [employer]ORER/Reproductive: NONE Surgical History Surgical History: hysterectomy Family History Relations & Conditions If Any: MOTHER FHx: hypertension Psychosocial History Where Do You Live? Home Smoking Status: Never Smoked ETOH Use: denies use Illicit Drug Use: denies illicit drug use Functional Ability ADLs Independent: dressing, eating, toileting, bathing. Ambulation: cane Exam & Diagnostic Data Vital Signs and I&O Vital Signs Date Time Temp Pulse Resp B/P B/P Pulse O2 O2 Flow FiO2 Mean Ox Delivery Rate 08/19 08 57 154/72 08/19 0822 57 154/72 08/19 0558 98.2 57 20 138/70 99 08/19 0208 98.5 59 20 178/82 99 08/19 0117 96.8 54 18 151/70 100 Room Air 08/18 2244 98.4 57 18 154/68 100 Room Air 08/18 1750 Room Air 08/18 1747 98.6 66 18 166/76 100 Room Air 08/18 1453 98.0 80 18 176/88 95 Room Air Intake & Output 08/19 1600 08/19 0800 08/19 0000 08/18 1600 08/18 0800 08/18 0000 Intake Total Output Total 200 Balance -200 Output, Urine 200 Patient 121 lb 130 lb Weight Physical Exam: General: no apparent distress. Alert. Eyes: No obvious scleral icterus. HEENT: No jugular venous distention or abnormal jugular venous pulsations. Cardiovascular: Normal intensity S1/S2. Regular bradycardia Respiratory: Lungs clear to auscultation bilaterally. Abdomen: Soft, nontender with no guarding or rebound tenderness. Musculoskeletal: No clubbing or cyanosis noted Skin: No obvious rashes or ulcerations. Neurologic: No gross focal deficits noted. Lymph: No gross lymphadenopathy. Labs/Sam Results: Laboratory Tests 08/19 08/19 08/18 0630 0110 1912 Chemistry Sodium (137 - 145 mmol/L) 143 Potassium (3.5 - 5.1 mmol/L) 3.4 L Chloride (98 - 107 mmol/L) 104 Carbon Dioxide (22 - 30 mmol/L) 27 Anion Gap (5 - 16) 13 BUN (7 - 17 mg/dL) 23 H Creatinine (0.5 - 1.0 mg/dL) 1.1 H Estimated GFR (>60 ml/min) 47 L BUN/Creatinine Ratio (7 - 25 %) 20.9 Troponin I (< 0.11 ng/ml) 0.02 0.02 Hematology CBC w Diff NO MAN DIFF REQ WBC (4.8 - 10.8 /CUMM) 3.1 L RBC (4.20 - 5.40 /CUMM) 2.81 L Hgb (12.0 - 16.0 G/DL) 9.2 L Hct (37 - 47 %) 27.6 L MCV (81.0 - 99.0 FL) 98.1 MCH (27.0 - 31.0 PG) 32.6 H MCHC (33.0 - 37.0 G/DL) 33.3 RDW (11.5 - 14.5 %) 13.3 Plt Count (130 - 400 /CUMM) 153 MPV (7.4 - 10.4 FL) 8.3 Gran % (42.2 - 75.2 %) 43.9 Lymphocytes % (20.5 - 51.1 %) 39.5 Monocytes % (1.7 - 9.3 %) 13.8 H Eosinophils % (0 - 5 %) 1.8 Basophils % (0.0 - 2.0 %) 1.0 Absolute Granulocytes (1.4 - 6.5 /CUMM) 1.3 L Absolute Lymphocytes (1.2 - 3.4 /CUMM) 1.2 Absolute Monocytes (0.10 - 0.60 /CUMM) 0.4 Absolute Eosinophils (0.0 - 0.7 /CUMM) 0.1 Absolute Basophils (0.0 - 0.2 /CUMM) 0 08/18 1604 Chemistry Sodium (137 - 145 mmol/L) 144 Potassium (3.5 - 5.1 mmol/L) 3.5 Chloride (98 - 107 mmol/L) 100 Carbon Dioxide (22 - 30 mmol/L) 28 Anion Gap (5 - 16) 16 BUN (7 - 17 mg/dL) 26 H Creatinine (0.5 - 1.0 mg/dL) 1.4 H Estimated GFR (>60 ml/min) 36 L BUN/Creatinine Ratio (7 - 25 %) 18.6 Glucose (65 - 99 mg/dL) 114 H Calcium (8.4 - 10.2 mg/dL) 10.1 Total Bilirubin (0.2 - 1.3 mg/dL) 0.6 AST (14 - 36 U/L) 31 ALT (9 - 52 U/L) 28 Alkaline Phosphatase (<127 U/L) 56 Troponin I (< 0.11 ng/ml) 0.02 Total Protein (6.3 - 8.2 g/dL) 7.9 Albumin (3.5 - 5.0 g/dL) 4.2 Globulin (1.9 - 4.2 gm/dL) 3.7 Albumin/Globulin Ratio (1.1 - 2.2 %) 1.1 Coagulation D-Dimer High Sensitivty (0 - 243 ng/ml) 658 H Hematology CBC w Diff NO MAN DIFF REQ WBC (4.8 - 10.8 /CUMM) 3.4 L RBC (4.20 - 5.40 /CUMM) 3.38 L Hgb (12.0 - 16.0 G/DL) 11.0 L Hct (37 - 47 %) 33.2 L MCV (81.0 - 99.0 FL) 98.4 MCH (27.0 - 31.0 PG) 32.5 H MCHC (33.0 - 37.0 G/DL) 33.0 RDW (11.5 - 14.5 %) 12.8 Plt Count (130 - 400 /CUMM) 189 MPV (7.4 - 10.4 FL) 8.3 Gran % (42.2 - 75.2 %) 64.4 Lymphocytes % (20.5 - 51.1 %) 25.6 Monocytes % (1.7 - 9.3 %) 8.3 Eosinophils % (0 - 5 %) 1.2 Basophils % (0.0 - 2.0 %) 0.5 Absolute Granulocytes (1.4 - 6.5 /CUMM) 2.2 Absolute Lymphocytes (1.2 - 3.4 /CUMM) 0.9 L Absolute Monocytes (0.10 - 0.60 /CUMM) 0.3 Absolute Eosinophils (0.0 - 0.7 /CUMM) 0 Absolute Basophils (0.0 - 0.2 /CUMM) 0 Diagnostic Data EKG Results Tracing was personally reviewed and shows sinus rhythm at 66 bpm with first- degree AV block and a right bundle branch block CXR Results Mild cardiomegaly. No consolidation in the chest. Other Results CTA IMPRESSION: Positive for PE in a few segments in the right lower lobe as described. Some patchy left lower lung infiltrate. Small 3 mm nodule density left upper lung. If there are risk factors for lung malignancy recommend 9 month to one year low-dose follow-up Telemetry tracings were personally reviewed and shows sinus bradycardia Assessment/Plan Assessment/Plan 1. Recurrent syncope with sinus bradycardia and known history of significant conduction disease on ECG 2. prior DVT/pulmonary embolism in 2015 ([place]) 3. paroxysmal atrial fibrillation on Eliquis 4. remote CVA 5. Hypertension 6. History of mild aortic dilatation I had an extensive discussion with the patient and her daughter today. Given recurrent syncope with sinus bradycardia and significant conduction disease on ECG it is certainly possible these syncopal episodes are related to bradycardia arrhythmia; after extensive discussion regarding risks versus benefits they would like to proceed with permanent pacemaker. The pulmonary emboli seen on CT scan are highly unlikely to be new as she has been taking full anticoagulation and she has no shortness of breath or significant hypoxia. Plan is to proceed with a permanent pacemaker on Tuesday. She should be n.p.o. after midnight on Tuesday. Would hold Eliquis and start on heparin drip without a bolus on Tuesday morning. I would recommend obtaining a repeat echocardiogram. Case was discussed extensively with the medical team and also with Dr. Orozco who will be performing the procedure on Tuesday. Francis White MD [facility] Consult Acknowledgment - Thank you for your consult request.
[2017-08-19 14:41] VITALS: BP 100/50
--- NOTE | 2017-08-19 19:21 | ULTRASOUND REPORT ---
EXAMINATION: US TRIPLEX OF LOWER EXTREMITIES, BILATERAL CLINICAL INFORMATION: Suspected DVT. COMPARISON: Chest CTA 08/18/2017. TECHNIQUE: Color-flow triplex imaging with spectral analysis and compression Doppler were performed on the lower extremities. FINDINGS: Respiratory variation, normal compression and augmented flow are noted throughout the lower extremities. The visualized common femoral vein, superficial femoral vein, profunda femoral vein, popliteal vein and midcalf peroneal and posterior tibial venous segments show no evidence of deep venous thrombosis. There is no Lewis's cyst. IMPRESSION: Normal triplex scan without evidence of deep venous thrombosis involving the lower extremities.
[2017-08-19 22:29] VITALS: BP 100/50
--- NOTE | 2017-08-20 06:40 | PN- Housestaff ---
Subjective Follow-up For: -Syncopal episode -Recently diagnosed Erika luis currently on sinus rhythm -Recurrent bradycardia -History of PE- Subjective: Afebrile, hemodynamically stable but blood pressure is in the lower border of normal. Saturating well on room air. She denies dizziness or any current active complaints. No acute overnight events were reported. Review of Systems Constitutional: Reports: see HPI. Objective Last 24 Hrs of Vital Signs/I&O Vital Signs Date Time Temp Pulse Resp B/P B/P Pulse O2 O2 Flow FiO2 Mean Ox Delivery Rate 08/20 0656 98.4 51 20 112/60 100 Room Air 08/19 2229 98.0 72 19 100/50 98 08/19 1441 98.5 64 20 100/50 96 Room Air 08/19 0822 57 154/72 08/19 0822 57 154/72 Intake & Output 08/20 0800 08/20 0000 08/19 1600 Intake Total 240 360 500 Output Total 600 Balance 240 360 -100 Intake, Oral 240 360 500 Output, Urine 600 Patient 54.885 kg Weight Weight Bed scale Measurement Method Physical Exam General Appearance: Alert, Oriented X3, Cooperative, No Acute Distress HEENT: Atraumatic, PERRLA, EOMI, Mucous Membr. moist/pink Cardiovascular: Regular Rate, Normal S1, Normal S2, No Murmurs Lungs: Clear to Auscultation, Normal Air Movement Abdomen: Soft, No Tenderness Neurological: Normal Speech Extremities: No Clubbing, No Cyanosis, No Edema Current Medications: Current Medications Sig/Sarah Start time Last Medication Dose Route Stop Time Status Admin Acetaminophen 650 MG Q6P PRN 08/18 2330 AC 08/20 PO 0656 Apixaban 2.5 MG BID 08/18 2358 DC 08/19 PO 0822 Cholecalciferol 1,000 IU DAILY 08/19 1000 AC 08/19 PO 0822 Dorzolamide HCl 1 GTT BID 08/18 2326 AC 08/19 OPH 2120 Heparin Sodium 5,000 UNIT Q8 08/20 0600 AC 08/20 (Porcine) SC 0547 Hydrochlorothiazide 12.5 MG DAILY 08/20 1000 AC PO Latanoprost 1 GTT QPM 08/19 2200 AC 08/19 OPH 2121 Losartan Potassium 50 MG DAILY 08/19 1000 AC 08/19 PO 0822 Multivitamins 1 TAB DAILY 08/19 1000 AC 08/19 PO 0822 Nifedipine 60 MG DAILY 08/19 1000 AC 08/19 PO 0822 Patient Medication 1 ED ONE ONE 08/19 1600 DC 08/19 Teaching ED 08/19 1601 1708 Potassium Chloride 20 MEQ ONCE ONE 08/19 1545 DC 08/19 PO 08/19 1546 1708 Potassium Chloride 40 MEQ ONCE ONE 08/19 0900 DC 08/19 PO 08/19 0901 1013 Timolol Maleate 1 GTT BID 08/19 2200 AC 08/19 OPH 2120 Last 24 Hrs of Lab/Sam Results Last 24 Hrs of Labs/Mics: Laboratory Tests 08/20/17 0726: Sodium Pending, Potassium Pending, Chloride Pending, Carbon Dioxide Pending, Anion Gap Pending, BUN Pending, Creatinine Pending, BUN/Creatinine Ratio Pending , CBC w Diff Pending, WBC Pending, RBC Pending, Hgb Pending, Hct Pending, MCV Pending, MCH Pending, MCHC Pending, RDW Pending, Plt Count Pending, MPV Pending Assessment/Plan Assessment: Problems list * Recurrent syncopal episodes * Atrial fibrillation on the liquids currently on sinus rhythm * First-degree heart block/RBBB * PE on CAT scan currently the liquids for A. fib * History of PE and DVT in 2014. * HTN * Hypokalemia * Normocytic normochromic anemia with MCV on the upper border of normal * Elevated creatinine Negative orthostatic pressure and no dizziness prior to the episode. No seizure activity was observed which make seizure unlikely. Given the history of A. fib, RBBB, and observed bradycardia cardiology was consulted and he recommended repeating echocardiogram and pacemaker placement. DVT lower extremity were ruled out. Plan * Continue monitoring telemetry * Patient will be scheduled for pacemaker placement next Tuesday * Pending echocardiogram * Nothing by mouth on Tuesday starting midnight * Continue hold Eliquis and start IV heparin on Tuesday morning as per cardiology * Pending BEP, we'll follow potassium and kidney function * Full code * Heart healthy diet * DVT prophylaxis with subcutaneous heparin Problem List: 1. Pulmonary emboli 2. Syncopal episodes Pain Ratin Pain Location: NA Pain Goal: Remain pain free Pain Plan: See assessment and plan Tomorrow's Labs & Rationales: See assessment and plan
[2017-08-20 06:56] VITALS: BP 112/60
[2017-08-20 08:46] LABS: ABSOLUTE BASOPHIL COUNT 0 /CUMM (0.0-0.2); ABSOLUTE EOSINOPHIL COUNT 0.1 /CUMM (0.0-0.7); ABSOLUTE GRANULOCYTE CT 1.8 /CUMM (1.4-6.5); ABSOLUTE LYMPH COUNT 1.2 /CUMM (1.2-3.4); ABSOLUTE MONOCYTE COUNT 0.4 /CUMM (0.10-0.60); BASOPHIL % 0.9 % (0.0-2.0); EOSINOPHIL % 2.6 % (0-5); GRANULOCYTE % 50.6 % (42.2-75.2); HEMATOCRIT 29.6 % (37-47); MEAN CORPUSCULAR HGB 32.7 PG (27.0-31.0); MEAN CORPUSCULAR VOLUME 99.2 FL (81.0-99.0); MEAN PLATELET VOLUME 8.8 FL (7.4-10.4); RBC DISTRIBUTION WIDTH 13.3 % (11.5-14.5); RED BLOOD CELL CT 2.98 /CUMM (4.20-5.40); WHITE BLOOD CELL COUNT 3.5 /CUMM (4.8-10.8)
--- NOTE | 2017-08-20 11:09 | PN- Thoracic Surgery ---
Surgical Brief Attending Note Brief Attending Note: MRI compatible dual-chamber pacemaker scheduled for Tuesday morning. Heparin drip should be stopped at 6 AM that day. Keep off of Eliquis until after surgery
--- NOTE | 2017-08-20 11:35 | PN- Cardiology ---
Subjective Subjective: Patient is feeling well today. She is not having any symptoms of chest pain, shortness of breath, palpitations, dizziness. There has been no bradycardia reported on the telemetry. She is scheduled for pacemaker on August 22. She will be transitioned to heparin bridge prior to the procedure. Objective Vital Signs and I&Os Vital Signs Date Time Temp Pulse Resp B/P B/P Pulse O2 O2 Flow FiO2 Mean Ox Delivery Rate 08/20 912 99 112/60 08/20 09 99 112/60 08/20 0656 98.4 51 20 112/60 100 Room Air 08/19 2229 98.0 72 19 100/50 98 08/19 1441 98.5 64 20 100/50 96 Room Air Intake & Output 08/20 1600 08/20 0800 08/20 0000 08/19 1600 08/19 0800 08/19 0000 Intake Total 240 360 500 Output Total 600 200 Balance 240 360 -100 -200 Intake, Oral 240 360 500 Output, Urine 600 200 Patient 121 lb 121 lb Weight Weight Bed scale Measurement Method Physical Exam: She is in no distress. HEENT exam normal Chest clear Heart grade 2 to 3/6 systolic ejection murmur at the base Extremities no edema Current Medications: Current Medications Sig/Sarah Start time Last Medication Dose Route Stop Time Status Admin Acetaminophen 650 MG Q6P PRN 08/18 2330 AC 08/20 PO 0656 Apixaban 2.5 MG BID 08/18 2358 DC 08/19 PO 0822 Cholecalciferol 1,000 IU DAILY 08/19 1000 AC 08/20 PO 0913 Dorzolamide HCl 1 GTT BID 08/18 2326 AC 08/20 OPH 0913 Heparin Sodium 5,000 UNIT Q8 08/20 0600 AC 08/20 (Porcine) MT 0547 Hydrochlorothiazide 12.5 MG DAILY 08/20 1000 AC 08/20 PO 0913 Latanoprost 1 GTT QPM 08/19 2200 AC 08/19 OPH 2121 Losartan Potassium 50 MG DAILY 08/19 1000 AC 08/20 PO 0913 Multivitamins 1 TAB DAILY 08/19 1000 AC 08/20 PO 0913 Nifedipine 60 MG DAILY 08/19 1000 AC 08/20 PO 0913 Patient Medication 1 ED ONE ONE 08/19 1600 DC 08/19 Teaching ED 08/19 1601 1708 Potassium Chloride 20 MEQ ONCE ONE 08/19 1545 DC 08/19 PO 08/19 1546 1708 Timolol Maleate 1 GTT BID 08/19 2200 AC 08/20 OPH 0913 Assessment/Plan Assessment/Plan The patient is stable from a cardiac standpoint. She is pending pacemaker implantation. Echocardiogram will be done today or tomorrow. She will be transitioned to heparin bridging prior to the procedure. Continue telemetry? Yes
--- NOTE | 2017-08-20 13:38 | PN- Att Addend ---
Attending Addendum Attending Brief Note Patient seen and examined. Plan of care discussed with the medical team and the patient. Available lab work and radiology test reports were reviewed. Patient does not report any new symptoms. She appears well and denies any new symptoms. She denies any chest pain nausea vomiting sweating palpitations or difficulty breathing. Exam: General: Patient awake alert oriented without any distress CVS: S1 plus S2 without any murmur or gallops Chest: Few scattered crepitation without any wheeze. There is no respiratory distress. 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 without any focal neuro deficit and follows commands appropriately Extremities: No edema; no clubbing or cyanosis noted Current Medications Sig/Sarah Start time Last Medication Dose Route Stop Time Status Admin Acetaminophen 650 MG Q6P PRN 08/18 2330 AC 08/20 PO 0656 Apixaban 2.5 MG BID 08/18 2358 DC 08/19 PO 0822 Cholecalciferol 1,000 IU DAILY 08/19 1000 AC 08/20 PO 0913 Dorzolamide HCl 1 GTT BID 08/18 2326 AC 08/20 OPH 0913 Heparin Sodium 5,000 UNIT Q8 08/20 0600 AC 08/20 (Porcine) SC 0547 Hydrochlorothiazide 12.5 MG DAILY 08/20 1000 AC 08/20 PO 0913 Latanoprost 1 GTT QPM 08/19 2200 AC 08/19 OPH 2121 Losartan Potassium 50 MG DAILY 08/19 1000 AC 08/20 PO 0913 Multivitamins 1 TAB DAILY 08/19 1000 AC 08/20 PO 0913 Nifedipine 60 MG DAILY 08/19 1000 AC 08/20 PO 0913 Patient Medication 1 ED ONE ONE 08/19 1600 DC 08/19 Teaching ED 08/19 1601 1708 Potassium Chloride 20 MEQ ONCE ONE 08/19 1545 DC 08/19 PO 08/19 1546 1708 Timolol Maleate 1 GTT BID 08/19 2200 AC 08/20 OPH 0913 Laboratory Tests 08/20/17 0726: Anion Gap 9, Estimated GFR 47 L, BUN/Creatinine Ratio 22.7, CBC w Diff NO MAN DIFF REQ, RBC 2.98 L, MCV 99.2 H, MCH 32.7 H, MCHC 33.0, RDW 13.3, MPV 8.8, Gran % 50.6, Lymphocytes % 33.9, Monocytes % 12.0 H, Eosinophils % 2.6, Basophils % 0.9, Absolute Granulocytes 1.8, Absolute Lymphocytes 1.2, Absolute Monocytes 0.4, Absolute Eosinophils 0.1, Absolute Basophils 0 08/19/17 0630: Anion Gap 13, Estimated GFR 47 L, BUN/Creatinine Ratio 20.9, CBC w Diff NO MAN DIFF REQ, RBC 2.81 L, MCV 98.1, MCH 32.6 H, MCHC 33.3, RDW 13.3, MPV 8.3, Gran % 43.9, Lymphocytes % 39.5, Monocytes % 13.8 H, Eosinophils % 1.8, Basophils % 1.0, Absolute Granulocytes 1.3 L, Absolute Lymphocytes 1.2, Absolute Monocytes 0.4, Absolute Eosinophils 0.1, Absolute Basophils 0 08/19/17 0110: Magnesium 1.8, Iron 68, TIBC 318, Ferritin 44.8, Troponin I 0.02, Vitamin B12 953 H, Folate > 20.0 H 08/18/17 1912: Troponin I 0.02 08/18/17 1604: Anion Gap 16, Estimated GFR 36 L, BUN/Creatinine Ratio 18.6, Glucose 114 H, Calcium 10.1, Total Bilirubin 0.6, AST 31, ALT 28, Alkaline Phosphatase 56, Troponin I 0.02, Total Protein 7.9, Albumin 4.2, Globulin 3.7, Albumin/Globulin Ratio 1.1, D-Dimer High Sensitivty 658 H, CBC w Diff NO MAN DIFF REQ, RBC 3.38 L, MCV 98.4, MCH 32.5 H, MCHC 33.0, RDW 12.8, MPV 8.3, Gran % 64.4, Lymphocytes % 25.6, Monocytes % 8.3, Eosinophils % 1.2, Basophils % 0.5, Absolute Granulocytes 2.2, Absolute Lymphocytes 0.9 L, Absolute Monocytes 0.3, Absolute Eosinophils 0, Absolute Basophils 0 Vital Signs Date Time Temp Pulse Resp B/P B/P Pulse O2 O2 Flow FiO2 Mean Ox Delivery Rate 08/20 912 99 112/60 08/20 0913 99 112/60 08/20 0656 98.4 51 20 112/60 100 Room Air 08/19 2229 98.0 72 19 100/50 98 03/23 1441 98.5 64 20 100/50 96 Room Air Intake & Output 08/20 1600 08/20 0800 08/20 0000 Intake Total 240 360 Output Total Balance 240 360 Intake, Oral 240 360 Ultrasound legs Normal triplex scan without evidence of deep venous thrombosis involving the lower extremities. Assessment * Recurrent syncopal episodes likely due to bradycardia * Atrial fibrillation on the liquids currently on sinus rhythm * First-degree heart block/RBBB * PE on CAT scan currently the liquids for A. fib * History of PE and DVT in 2014. * HTN * Hypokalemia * Normocytic normochromic anemia with MCV on the upper border of normal * Elevated creatinine Plan * Pacemaker on Tuesday * Continue telemetry monitoring * Continue eliquis
[2017-08-20 14:23] VITALS: BP 128/70
--- NOTE | 2017-08-20 21:41 | ECHOCARDIOGRAM REPORT ---
RENETTA MCDONALD Age: 86 : 1930 Gender: F Exam Date: 08/20/2017 09:42 Exam Location: 1 [address] Ht (in): 63 Wt (lb): 121 BSA: 1.56 BP: 112 / 60 Ordering Physician: Jose Guadalupe Roman MD Referring Physician: Cullen White M.D. Technologist: Anayeli Cohen Room Number: [id number] Indications: LIGHTHEADEDNESS Rhythm: Sinus Technical Quality: fair FINDINGS Left Ventricle Normal size left ventricle. Left ventricular wall thickness mildly increased. Normal left ventricular ejection fraction estimated at 60-65%. Right Ventricle Normal right ventricular size and function. Right Atrium Mild right atrial dilatation. Left Atrium Moderate left atrial dilatation. Mitral Valve Mild mitral annular calcification. Mild mitral regurgitation. Aortic Valve Diffuse thickening (sclerosis) of the aortic valve cusps without reduced excursion. Mild aortic regurgitation. Tricuspid Valve Tricuspid valve is normal in structure and function. Moderate tricuspid regurgitation. Right ventricular systolic pressure estimated to be elevated at 54 mmHg. Pulmonic Valve Pulmonic valve not well visualized, grossly normal. Moderate pulmonic regurgitation. Pericardium No pericardial effusion. Great Vessels Normal size aortic root. CONCLUSIONS Normal left ventricular systolic function. Moderate concentric hypertrophy.Biatrial enlargement. Moderate Pulmonary hypertension. Osmany Peters M.D. (Electronically Signed) Final Date: 20 August 2017 21:40 MEASUREMENTS (Male / Female) Normal Values 2D ECHO LV Diastolic Diameter PLAX 3.7 cm 4.2 - 5.9 / 3.9 - 5.3 cm LV Systolic Diameter PLAX 2.2 cm 2.1 - 4.0 cm LV Fractional Shortening PLAX 40.5 % 25 - 46 % LV Ejection Fraction 2D Teich 72.1 % IVS Diastolic Thickness 1.2 cm LVPW Diastolic Thickness 1.2 cm LV Relative Wall Thickness 0.6 RV Internal Dim ED PLAX 3.2 cm 1.9 - 3.8 cm LVOT Diameter 1.8 cm LA Systolic Diameter LX 5.0 cm 3.0 - 4.0 / 2.7 - 3.8 cm LA Volume 60.0 cm 18 - 58 / 22 - 52 cm Ascending Aorta Diameter 3.1 cm DOPPLER AV Peak Velocity 216.0 cm/s AV Peak Gradient 18.7 mmHg AV Mean Velocity 139.0 cm/s AV Mean Gradient 9.0 mmHg AV Velocity Time Integral 42.4 cm LVOT Peak Velocity 139.0 cm/s LVOT Peak Gradient 7.7 mmHg LVOT Mean Velocity 95.6 cm/s LVOT Mean Gradient 4.0 mmHg LVOT Velocity Time Integral 29.3 cm LVOT Stroke Volume 74.6 cm AV Area Cont Eq vti 1.8 cm AV Area Cont Eq pk 1.6 cm MV Peak Velocity 99.2 cm/s MV Peak Gradient 3.9 mmHg MV Mean Velocity 76.5 cm/s MV Mean Gradient 2.0 mmHg Mitral E Point Velocity 85.9 cm/s Mitral A Point Velocity 85.9 cm/s Mitral E to A Ratio 1.0 MV PHT Velocity 92.1 cm/s MV Deceleration Karnes 165.0 cm/s MV Pressure Half Time 167.5 ms MV Area PHT 1.3 cm MV Deceleration Time 264.0 ms TR Peak Velocity 330.0 cm/s TR Peak Gradient 43.6 mmHg Right Atrial Pressure 10.0 mmHg Pulmonary Artery Systolic Pressu 53.6 mmHg Right Ventricular Systolic Press 53.6 mmHg PV Peak Velocity 139.0 cm/s PV Peak Gradient 7.7 mmHg PV Mean Velocity 92.2 cm/s PV Mean Gradient 4.0 mmHg PV Velocity Time Integral 22.9 cm LV E' Lateral Velocity 4.0 cm/s Mitral E to LV E' Lateral Ratio 21.6 LV E' Septal Velocity 2.9 cm/s Mitral E to LV E' Septal Ratio 29.6
[2017-08-20 23:12] VITALS: BP 98/60
[2017-08-21 07:15] VITALS: BP 110/60
--- NOTE | 2017-08-21 12:58 | PN- Att Addend ---
Attending Addendum Attending Brief Note Patient seen and examined. Plan of care discussed with the medical team and the patient. Available lab work and radiology test reports were reviewed. Patient does not report any new symptoms. She appears well and denies any new symptoms. She denies any chest pain nausea vomiting sweating palpitations or difficulty breathing. Exam: General: Patient awake alert oriented without any distress CVS: S1 plus S2 without any murmur or gallops Chest: Few scattered crepitation without any wheeze. There is no respiratory distress. 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 fib * History of PE and DVT in 2014. * HTN * Hypokalemia * Normocytic normochromic anemia with MCV on the upper border of normal * Elevated creatinine Plan * Pacemaker on Tuesday * Continue telemetry monitoring * Start IV heparin * Nothing by mouth post midnight * Start low-dose IV fluids 50 mL per hour while nothing by mouth Current Medications Sig/Sarah Start time Last Medication Dose Route Stop Time Status Admin Acetaminophen 650 MG Q6P PRN 08/18 2330 AC 08/20 PO 0656 Cholecalciferol 1,000 IU DAILY 08/19 1000 AC 08/21 PO 1045 Dorzolamide HCl 1 GTT BID 08/18 2326 AC 08/21 OPH 1045 Heparin Sodium 5,000 UNIT Q8 08/20 0600 DC 08/21 (Porcine) SC 0500 Heparin Sodium/ 25,000 UNIT Q24H 08/21 0715 AC Dextrose IV 08/22 0600 Dextrose/Water 500 ML Hydrochlorothiazide 12.5 MG DAILY 08/20 1000 AC 08/21 PO 1044 Latanoprost 1 GTT QPM 08/19 2200 AC 08/20 OPH 2133 Losartan Potassium 50 MG DAILY 08/19 1000 AC 08/21 PO 1045 Multivitamins 1 TAB DAILY 08/19 1000 AC 08/21 PO 1043 Nifedipine 60 MG DAILY 08/19 1000 AC 08/21 PO 1044 Timolol Maleate 1 GTT BID 08/19 2200 AC 08/21 OPH 1044 Laboratory Tests 08/20/17 0726: Anion Gap 9, Estimated GFR 47 L, BUN/Creatinine Ratio 22.7, CBC w Diff NO MAN DIFF REQ, RBC 2.98 L, MCV 99.2 H, MCH 32.7 H, MCHC 33.0, RDW 13.3, MPV 8.8, Gran % 50.6, Lymphocytes % 33.9, Monocytes % 12.0 H, Eosinophils % 2.6, Basophils % 0.9, Absolute Granulocytes 1.8, Absolute Lymphocytes 1.2, Absolute Monocytes 0.4, Absolute Eosinophils 0.1, Absolute Basophils 0 08/19/17 0630: Anion Gap 13, Estimated GFR 47 L, BUN/Creatinine Ratio 20.9, CBC w Diff NO MAN DIFF REQ, RBC 2.81 L, MCV 98.1, MCH 32.6 H, MCHC 33.3, RDW 13.3, MPV 8.3, Gran % 43.9, Lymphocytes % 39.5, Monocytes % 13.8 H, Eosinophils % 1.8, Basophils % 1.0, Absolute Granulocytes 1.3 L, Absolute Lymphocytes 1.2, Absolute Monocytes 0.4, Absolute Eosinophils 0.1, Absolute Basophils 0 08/19/17 0110: Magnesium 1.8, Iron 68, TIBC 318, Ferritin 44.8, Troponin I 0.02, Vitamin B12 953 H, Folate > 20.0 H 08/18/17 1912: Troponin I 0.02 08/18/17 1604: Anion Gap 16, Estimated GFR 36 L, BUN/Creatinine Ratio 18.6, Glucose 114 H, Calcium 10.1, Total Bilirubin 0.6, AST 31, ALT 28, Alkaline Phosphatase 56, Troponin I 0.02, Total Protein 7.9, Albumin 4.2, Globulin 3.7, Albumin/Globulin Ratio 1.1, D-Dimer High Sensitivty 658 H, CBC w Diff NO MAN DIFF REQ, RBC 3.38 L, MCV 98.4, MCH 32.5 H, MCHC 33.0, RDW 12.8, MPV 8.3, Gran % 64.4, Lymphocytes % 25.6, Monocytes % 8.3, Eosinophils % 1.2, Basophils % 0.5, Absolute Granulocytes 2.2, Absolute Lymphocytes 0.9 L, Absolute Monocytes 0.3, Absolute Eosinophils 0, Absolute Basophils 0 Vital Signs Date Time Temp Pulse Resp B/P B/P Pulse O2 O2 Flow FiO2 Mean Ox Delivery Rate 08/21 1045 50 110/60 08/21 1044 50 110/60 08/21 0715 98.5 50 20 11060 97 Room Air 08/20 2312 98.0 71 22 98/60 99 08/20 1423 98.8 73 20 128/70 100 Room Air Intake & Output 08/21 1600 08/21 0800 08/21 0000 Intake Total 240 600 Output Total Balance 240 600 Intake, IV Intake, Oral 240 600
[2017-08-21 15:10] VITALS: BP 112/62
[2017-08-21 18:57] LABS: ABSOLUTE BASOPHIL COUNT 0.1 /CUMM (0.0-0.2); ABSOLUTE EOSINOPHIL COUNT 0.1 /CUMM (0.0-0.7); ABSOLUTE GRANULOCYTE CT 2.1 /CUMM (1.4-6.5); ABSOLUTE LYMPH COUNT 1.6 /CUMM (1.2-3.4); ABSOLUTE MONOCYTE COUNT 0.5 /CUMM (0.10-0.60); BASOPHIL % 1.6 % (0.0-2.0); EOSINOPHIL % 2.7 % (0-5); GRANULOCYTE % 47.8 % (42.2-75.2); HEMATOCRIT 32.4 % (37-47); MEAN CORPUSCULAR HGB 32.7 PG (27.0-31.0); MEAN CORPUSCULAR VOLUME 99.1 FL (81.0-99.0); MEAN PLATELET VOLUME 8.9 FL (7.4-10.4); PLATELET COUNT 174 /CUMM (130-400); RBC DISTRIBUTION WIDTH 13.4 % (11.5-14.5); RED BLOOD CELL CT 3.27 /CUMM (4.20-5.40); WHITE BLOOD CELL COUNT 4.4 /CUMM (4.8-10.8)
[2017-08-21 21:13] LABS: PTT 48 SEC (25-37)
[2017-08-21 22:00] VITALS: BP 132/62
[2017-08-22 05:07] LABS: ABSOLUTE BASOPHIL COUNT 0 /CUMM (0.0-0.2); ABSOLUTE EOSINOPHIL COUNT 0.1 /CUMM (0.0-0.7); ABSOLUTE GRANULOCYTE CT 1.7 /CUMM (1.4-6.5); ABSOLUTE LYMPH COUNT 1.7 /CUMM (1.2-3.4); ABSOLUTE MONOCYTE COUNT 0.4 /CUMM (0.10-0.60); BASOPHIL % 1.1 % (0.0-2.0); EOSINOPHIL % 3.6 % (0-5); GRANULOCYTE % 42.4 % (42.2-75.2); HEMATOCRIT 30.4 % (37-47); MEAN CORPUSCULAR HGB 32.7 PG (27.0-31.0); MEAN CORPUSCULAR VOLUME 98.9 FL (81.0-99.0); PLATELET COUNT 144 /CUMM (130-400); RBC DISTRIBUTION WIDTH 13.5 % (11.5-14.5); RED BLOOD CELL CT 3.07 /CUMM (4.20-5.40); WHITE BLOOD CELL COUNT 3.9 /CUMM (4.8-10.8)
[2017-08-22 05:26] LABS: PTT > 120 SEC (25-37)
[2017-08-22 08:30] VITALS: BP 150/68
--- NOTE | 2017-08-22 08:36 | PN- Housestaff ---
Subjective Follow-up For: -Syncopal episode -Recently diagnosed Erika luis currently on sinus rhythm -Recurrent bradycardia -History of PE- Tele-Events Since Last Visit: Telemetry shows some sinus bradycardia and some periods of junctional escape rhythm. Subjective: Afebrile, mildly hypertensive, saturating well on room air. She denies dizziness or any current active complaints. No acute overnight events were reported. Review of Systems Constitutional: Reports: no symptoms, see HPI. Objective Last 24 Hrs of Vital Signs/I&O Vital Signs Date Time Temp Pulse Resp B/P B/P Pulse O2 O2 Flow FiO2 Mean Ox Delivery Rate 08/22 0907 150/68 08/22 0907 150/68 08/22 0830 97.6 60 18 150/68 100 Room Air 08/21 2200 97.8 61 19 132/62 99 Room Air Room Air 08/21 1510 98.1 67 20 112/62 92 Room Air Intake & Output 08/22 1600 08/22 0800 08/22 0000 Intake Total 525.6 65 Output Total 250 Balance 525.6 -185 Intake, IV 525.6 65 Output, Urine 250 Physical Exam General Appearance: Alert, Oriented X3, Cooperative, No Acute Distress Skin: No Rashes HEENT: Atraumatic, PERRLA, EOMI, Mucous Membr. moist/pink Neck: No JVD Cardiovascular: Regular Rate, Normal S1, Normal S2, No Murmurs Lungs: Clear to Auscultation, Normal Air Movement Abdomen: Soft, No Tenderness Neurological: Normal Speech, Strength at 5/5 X4 Ext Extremities: No Clubbing, No Cyanosis, No Edema Current Medications: Current Medications Sig/Sarah Start time Last Medication Dose Route Stop Time Status Admin Acetaminophen 650 MG Q6P PRN 08/18 2330 AC 08/20 PO 0656 Cholecalciferol 1,000 IU DAILY 08/19 1000 AC 08/21 PO 1045 Dextrose/Sodium 1,000 ML ONCE ONE 08/22 0100 08/22 Chloride IV 08/22 2058 0023 Dorzolamide HCl 1 GTT BID 08/18 2325 AC 08/22 OPH 0907 Heparin Sodium 2,196 UNIT 08/21 DC 08/21 (Porcine) IV 08/21 Heparin Sodium 5,000 UNIT .STK-MED ONE 08/21 2124 DC (Porcine) IV 08/21 2125 Heparin Sodium/ 25,000 UNIT Q24H 08/21 0715 DC 08/21 Dextrose IV 08/22 0600 0900 Dextrose/Water 500 ML Hydrochlorothiazide 12.5 MG DAILY 08/20 1000 AC 08/22 PO 0907 Latanoprost 1 GTT QPM 08/19 220 AC 08/21 OPH 2145 Losartan Potassium 50 MG DAILY 08/19 1000 AC 08/22 PO 0907 Multivitamins 1 TAB DAILY 08/19 1000 AC 08/21 PO 1043 Nifedipine 60 MG DAILY 08/19 1000 AC 08/22 PO 0907 Timolol Maleate 1 GTT BID 08/19 2199 AC 08/22 OPH 0907 Last 24 Hrs of Lab/Sam Results Last 24 Hrs of Labs/Mics: Laboratory Tests 08/22/17 0400: APTT > 120 *H, CBC w Diff MAN DIFF ORDERED, RBC 3.07 L, MCV 98.9, MCH 32.7 H, MCHC 33.0, RDW 13.5, MPV 9.0, Gran % 42.4, Lymphocytes % 42.3, Monocytes % 10.6 H, Eosinophils % 3.6, Basophils % 1.1, Absolute Granulocytes 1.7, Segmented Neutrophils 41 L, Absolute Lymphocytes 1.7, Lymphocytes 43, Monocytes 15 H, Absolute Monocytes 0.4, Absolute Eosinophils 0.1, Basophils 1, Absolute Basophils 0, Platelet Estimate ADEQUATE, Polychromasia 1+, Basophilic Stippling 1+, Ovalocytes FEW, Fld Total RBCs Counted 100 08/21/17 1950: APTT 48 H 08/21/17 1828: Anion Gap 11, Estimated GFR 39 L, BUN/Creatinine Ratio 17.7, CBC w Diff MAN DIFF ORDERED, RBC 3.27 L, MCV 99.1 H, MCH 32.7 H, MCHC 33.0, RDW 13.4, MPV 8.9, Gran % 47.8, Lymphocytes % 37.4, Monocytes % 10.5 H, Eosinophils % 2.7, Basophils % 1.6, Absolute Granulocytes 2.1, Segmented Neutrophils 47, Band Neutrophils 1, Absolute Lymphocytes 1.6, Lymphocytes 37, Monocytes 12 H, Absolute Monocytes 0.5, Eosinophils 3, Absolute Eosinophils 0.1, Absolute Basophils 0.1, Platelet Estimate ADEQUATE, Hypochromic-Microcytic 1+, Anisocytosis 1+, Macrocytic Cells 1+ Assessment/Plan Assessment: Problems list * Recurrent syncopal episodes * Atrial fibrillation on the liquids currently on sinus rhythm Present with syncopal episode. Negative orthostatic pressure and no dizziness prior to the episode. No seizure activity was observed which make seizure unlikely. Given the history of A. fib, RBBB, and observed bradycardia cardiology was consulted and he recommended repeating echocardiogram and pacemaker placement. DVT lower extremity were ruled out. The patient is scheduled for pacemaker placement later today. Problem list * First-degree heart block/RBBB * PE on CAT scan currently the liquids for A. fib * History of PE and DVT in 2014. * HTN * LINDA * Hypokalemia * Normocytic normochromic anemia with MCV on the upper border of normal * Elevated creatinine Plan * Continue monitoring telemetry * NPO and scheduled for pacemaker placement later today * Plan to resume anticoagulation post procedure when cleared. * We will hold losartan given LINDA * Repeat BEP kidney function * Full code * NPO for now. Heart healthy diet post procedure * DVT prophylaxis with subcutaneous heparin Problem List: 1. Seizure 2. Pulmonary emboli 3. Syncopal episodes Pain Ratin Pain Location: NA Pain Goal: Remain pain free Pain Plan: See A&P Tomorrow's Labs & Rationales: BEP to follow renal function test Tomorrow's Labs & Rationales: BEP to follow renal function test
--- NOTE | 2017-08-22 10:47 | PN- Cardiology ---
Subjective Subjective: Feels well this morning and offers no new complaints. Objective Vital Signs and I&Os Vital Signs Date Time Temp Pulse Resp B/P B/P Pulse O2 O2 Flow FiO2 Mean Ox Delivery Rate 08/22 0907 150/68 08/22 0907 150/68 08/22 0830 97.6 60 18 150/68 100 Room Air 08/21 2200 97.8 61 19 132/62 99 Room Air Room Air 08/21 1510 98.1 67 20 112/62 92 Room Air 08/21 1045 50 110/60 08/21 1044 50 110/60 Intake & Output 08/22 1600 08/22 0800 08/22 0000 08/21 1600 08/21 0800 08/21 0000 Intake Total 525.6 65 300 240 600 Output Total 250 Balance 525.6 -185 300 240 600 Intake, IV 525.6 65 Intake, Oral 300 240 600 Output, Urine 250 Physical Exam: General: no apparent distress. Alert. Eyes: No obvious scleral icterus. HEENT: No jugular venous distention or abnormal jugular venous pulsations. Cardiovascular: Normal intensity S1/S2. Regular bradycardia Respiratory: Lungs clear to auscultation bilaterally. Abdomen: Soft, nontender with no guarding or rebound tenderness. Musculoskeletal: No clubbing or cyanosis noted Skin: No obvious rashes or ulcerations. Neurologic: No gross focal deficits noted. Lymph: No gross lymphadenopathy. Current Medications: Current Medications Sig/Sarah Start time Last Medication Dose Route Stop Time Status Admin Acetaminophen 650 MG Q6P PRN 08/18 2330 AC 08/20 PO 0656 Cholecalciferol 1,000 IU DAILY 08/19 1000 AC 08/21 PO 1045 Dextrose/Sodium 1,000 ML ONCE ONE 08/22 0100 AC 08/22 Chloride IV 08/22 2058 0023 Dorzolamide HCl 1 GTT BID 08/18 2326 AC 08/22 OPH 0907 Heparin Sodium 2,196 UNIT 08/21 DC 08/21 (Porcine) IV 08/21 Heparin Sodium 5,000 UNIT .STK-MED ONE 08/21 2124 DC (Porcine) IV 08/21 2125 Heparin Sodium/ 25,000 UNIT Q24H 08/21 0715 DC 08/21 Dextrose IV 08/22 0600 0900 Dextrose/Water 500 ML Hydrochlorothiazide 12.5 MG DAILY 03/24 1000 AC 08/22 PO 0907 Latanoprost 1 GTT QPM 08/190 AC 08/21 OPH 2145 Losartan Potassium 50 MG DAILY 08/19 1000 AC 08/22 PO 0907 Multivitamins 1 TAB DAILY 08/19 1000 AC 08/21 PO 1043 Nifedipine 60 MG DAILY 08/19 1000 AC 08/22 PO 0907 Timolol Maleate 1 GTT BID 08/19 2199 AC 08/22 OPH 0907 Results Last 48 Hrs of Labs/Mics: Laboratory Tests 08/22/17 0400: APTT > 120 *H, CBC w Diff MAN DIFF ORDERED, RBC 3.07 L, MCV 98.9, MCH 32.7 H, MCHC 33.0, RDW 13.5, MPV 9.0, Gran % 42.4, Lymphocytes % 42.3, Monocytes % 10.6 H, Eosinophils % 3.6, Basophils % 1.1, Absolute Granulocytes 1.7, Segmented Neutrophils 41 L, Absolute Lymphocytes 1.7, Lymphocytes 43, Monocytes 15 H, Absolute Monocytes 0.4, Absolute Eosinophils 0.1, Basophils 1, Absolute Basophils 0, Platelet Estimate ADEQUATE, Polychromasia 1+, Basophilic Stippling 1+, Ovalocytes FEW, Fld Total RBCs Counted 100 08/21/17 1950: APTT 48 H 08/21/17 1828: Anion Gap 11, Estimated GFR 39 L, BUN/Creatinine Ratio 17.7, CBC w Diff MAN DIFF ORDERED, RBC 3.27 L, MCV 99.1 H, MCH 32.7 H, MCHC 33.0, RDW 13.4, MPV 8.9, Gran % 47.8, Lymphocytes % 37.4, Monocytes % 10.5 H, Eosinophils % 2.7, Basophils % 1.6, Absolute Granulocytes 2.1, Segmented Neutrophils 47, Band Neutrophils 1, Absolute Lymphocytes 1.6, Lymphocytes 37, Monocytes 12 H, Absolute Monocytes 0.5, Eosinophils 3, Absolute Eosinophils 0.1, Absolute Basophils 0.1, Platelet Estimate ADEQUATE, Hypochromic-Microcytic 1+, Anisocytosis 1+, Macrocytic Cells 1+ Recent Imaging Studies: Echo: Normal left ventricular systolic function. Moderate concentric hypertrophy.Biatrial enlargement. Moderate Pulmonary hypertension. Osmany Peters M.D. (Electronically Signed) Final Date: 20 August 2017 21:40 Lower extremity Doppler Normal triplex scan without evidence of deep venous thrombosis involving the lower extremities. Telemetry tracings are personally reviewed and shows sinus rhythm and sinus bradycardia with some periods of junctional escape rhythm Assessment/Plan Assessment/Plan 1. Recurrent syncope with sinus bradycardia and known history of significant conduction disease on ECG; some periods of junctional escape rhythm noted on telemetry 2. prior DVT/pulmonary embolism in 2015 ([place]) 3. paroxysmal atrial fibrillation on Eliquis 4. remote CVA 5. Hypertension 6. History of mild aortic dilatation Patient is resting comfortably. Telemetry shows some sinus bradycardia and some periods of junctional escape rhythm. Echocardiogram with normal biventricular function as above. She is currently n.p.o. and would like to proceed with permanent pacemaker today. Plan to resume anticoagulation post procedure when cleared. There was no evidence of DVT on ultrasound. Francis White MD [facility] Continue telemetry? Yes
--- NOTE | 2017-08-22 13:28 | PN- Att Addend ---
Attending Addendum Attending Brief Note Patient seen and examined. Plan of care discussed with the medical team and the patient. Available lab work and radiology test reports were reviewed. Patient does not report any new symptoms. She appears well and denies any new symptoms. She denies any chest pain nausea vomiting sweating palpitations or difficulty breathing. She is nothing by mouth for pacemaker insertion today. Exam: General: Patient awake alert oriented without any distress CVS: S1 plus S2 without any murmur or gallops Chest: Few scattered crepitation without any wheeze. There is no respiratory distress. Abdomen: Soft non-tender, bowel sound present, no guarding or rebound RUBBER TESTER: Awake alert oriented without any focal neuro deficit and follows commands appropriately Extremities: No edema; no clubbing or cyanosis noted Assessment * Recurrent syncopal episodes likely due to bradycardia- plan for pacemaker today * Atrial fibrillation on the liquids currently on sinus rhythm * First-degree heart block/RBBB * PE on CAT scan currently the liquids for A. fib * History of PE and DVT in 2014. 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 to follow creatinine Current Medications Sig/Sarah Start time Last Medication Dose Route Stop Time Status Admin Acetaminophen 650 MG Q6P PRN 08/18 2330 AC 08/20 PO 0656 Cholecalciferol 1,000 IU DAILY 08/19 1000 AC 08/21 PO 1045 Dextrose/Sodium 1,000 ML ONCE ONE 08/22 0100 AC 08/22 Chloride IV 08/22 2058 0023 Dorzolamide HCl 1 GTT BID 08/18 2326 AC 08/22 OPH 0907 Heparin Sodium 2,196 UNIT 08/21 DC 08/21 (Porcine) IV 08/21 Heparin Sodium 5,000 UNIT .STK-MED ONE 08/21 2124 DC (Porcine) IV 08/21 2125 Heparin Sodium/ 25,000 UNIT Q24H 08/21 0715 DC 08/21 Dextrose IV 08/22 0600 0900 Dextrose/Water 500 ML Hydrochlorothiazide 12.5 MG DAILY 08/20 1000 AC 08/22 PO 0907 Latanoprost 1 GTT QPM 08/19 2199 AC 08/21 OPH 2145 Losartan Potassium 50 MG DAILY 08/19 1000 AC 08/22 PO 0907 Multivitamins 1 TAB DAILY 08/19 1000 AC 08/21 PO 1043 Nifedipine 60 MG DAILY 08/19 1000 AC 08/22 PO 0907 Timolol Maleate 1 GTT BID 08/19 2199 AC 08/22 OPH 0907 Laboratory Tests 08/22/17 0400: APTT > 120 *H, CBC w Diff MAN DIFF ORDERED, RBC 3.07 L, MCV 98.9, MCH 32.7 H, MCHC 33.0, RDW 13.5, MPV 9.0, Gran % 42.4, Lymphocytes % 42.3, Monocytes % 10.6 H, Eosinophils % 3.6, Basophils % 1.1, Absolute Granulocytes 1.7, Segmented Neutrophils 41 L, Absolute Lymphocytes 1.7, Lymphocytes 43, Monocytes 15 H, Absolute Monocytes 0.4, Absolute Eosinophils 0.1, Basophils 1, Absolute Basophils 0, Platelet Estimate ADEQUATE, Polychromasia 1+, Basophilic Stippling 1+, Ovalocytes FEW, Fld Total RBCs Counted 100 08/21/17 1950: APTT 48 H 08/21/17 1828: Anion Gap 11, Estimated GFR 39 L, BUN/Creatinine Ratio 17.7, CBC w Diff MAN DIFF ORDERED, RBC 3.27 L, MCV 99.1 H, MCH 32.7 H, MCHC 33.0, RDW 13.4, MPV 8.9, Gran % 47.8, Lymphocytes % 37.4, Monocytes % 10.5 H, Eosinophils % 2.7, Basophils % 1.6, Absolute Granulocytes 2.1, Segmented Neutrophils 47, Band Neutrophils 1, Absolute Lymphocytes 1.6, Lymphocytes 37, Monocytes 12 H, Absolute Monocytes 0.5, Eosinophils 3, Absolute Eosinophils 0.1, Absolute Basophils 0.1, Platelet Estimate ADEQUATE, Hypochromic-Microcytic 1+, Anisocytosis 1+, Macrocytic Cells 1+ 08/20/17 0726: Anion Gap 9, Estimated GFR 47 L, BUN/Creatinine Ratio 22.7, CBC w Diff NO MAN DIFF REQ, RBC 2.98 L, MCV 99.2 H, MCH 32.7 H, MCHC 33.0, RDW 13.3, MPV 8.8, Gran % 50.6, Lymphocytes % 33.9, Monocytes % 12.0 H, Eosinophils % 2.6, Basophils % 0.9, Absolute Granulocytes 1.8, Absolute Lymphocytes 1.2, Absolute Monocytes 0.4, Absolute Eosinophils 0.1, Absolute Basophils 0 Vital Signs Date Time Temp Pulse Resp B/P B/P Pulse O2 O2 Flow FiO2 Mean Ox Delivery Rate 08/22 0907 150/68 08/22 0907 150/68 08/22 0830 97.6 60 18 150/68 100 Room Air 08/21 2200 97.8 61 19 132/62 99 Room Air Room Air 08/21 1510 98.1 67 20 112/62 92 Room Air Intake & Output 08/22 1600 08/22 0800 08/22 0000 Intake Total 525.6 65 Output Total 250 Balance 525.6 -185 Intake, IV 525.6 65 Output, Urine 250
--- NOTE | 2017-08-22 14:54 | RADIOLOGY REPORT ---
EXAMINATION: XR PORTABLE CHEST CLINICAL INFORMATION: Status post pacemaker placement COMPARISON: Chest x-ray 08/18/2017 TECHNIQUE: Portable frontal view of the chest was obtained. 2:19 PM FINDINGS: Pacemakers in place. There is a lead in the right atrium and right ventricle. Heart size is mildly enlarged. There are calcifications of the thoracic aortic arch. There is no pulmonary vascular congestion. There is no infiltrate or pleural effusion. There is no pneumothorax. IMPRESSION: Status post placement of pacemaker. Leads in right atrium and right ventricle. Lungs are clear. There is no pneumothorax.
--- NOTE | 2017-08-22 15:14 | RADIOLOGY REPORT ---
EXAMINATION: INTRAOPERATIVE FLUOROSCOPY DURING PACEMAKER PLACEMENT CLINICAL INDICATION: Pacemaker placement. COMPARISON: None. TECHNIQUE: The procedure was performed by Dr. Orozco in the operating room. FLUOROSCOPY TIME: 9 minutes 1 seconds. Number of images: None FINDINGS: Intraoperative fluoroscopy was provided during left-sided pacemaker placement. Leads project in the region of the right atrium and ventricle. IMPRESSION: Intraoperative fluoroscopy was utilized by Dr. Orozco during pacemaker placement. Please refer to the operative report for a detailed description of the procedure and the real-time findings made and acted upon by the surgeon.
[2017-08-22 16:15] VITALS: BP 150/80
--- NOTE | 2017-08-22 16:16 | Cons- Thoracic Surgery ---
General Information and HPI Consulting Request Date of Consult: 08/20/17 Requested By: Katie CHAMPION,Farrah Reason for Consult: Symptomatic bradycardia and evaluate for permanent pacemaker placement Source of Information: patient, old records, PCP Exam Limitations: no limitations History of Present Illness: The patient is an 86-year-old woman who is been followed as an outpatient for asymptomatic conduction disease which includes first-degree AV block right bundle branch block we'll atrial fibrillation. Outpatient evaluation by Holter monitor showed conduction disease and periodic Wenckebach block. The patient has had 3 syncopal episodes of short duration and is admitted for evaluation for permanent pacemaker placement. Allergies/Medications Allergies: Coded Allergies: NO KNOWN ALLERGIES (UNKNOWN 08/18/17) Home Med List: Apixaban (Eliquis) 2.5 MG TABLET 1 TAB PO BID afib (Reported) Calcium Carbonate/Vitamin D3 (Calcium 500 + D Tablet) (Unknown Strength) TABLET (Unknown Dose) PO DAILY SUPPLEMENT (Reported) Dorzolamide HCl/Timolol Maleat (Cosopt Eye Drops) 22.3 MG-6.8 MG/ML DROPS 1 GTT OU BID BOTH EYES (Reported) Latanoprost 0.005 % DROPS 1 GTT OU QPM BOTH EYES (Reported) Multivitamin-Min/Iron/FA/Vit K (Multi-Day Plus Minerals Tablet) 18 MG IRON-400 MCG-25 MCG TABLET 1 TAB PO DAILY SUPPLEMENT (Reported) Nifedipine (Nifedipine ER) 60 MG TAB.ER.24 1 TAB PO DAILY BP (Reported) Triamcinolone Acetonide 80 GM OINT...G. 1 KERA TOP BID PRN rash apply to affected area(s) Valsartan/Hydrochlorothiazide (Valsartan-Hctz 160-12.5 MG Tab) 160 MG-12.5 MG TABLET 1 TAB PO DAILY BP (Reported) Vitamin E Mixed (Vitamin E) (Unknown Strength) TABLET (Unknown Dose) PO DAILY SUPPLEMENT (Reported) Current Medications: Current Medications Sig/Sarah Start time Last Medication Dose Route Stop Time Status Admin Acetaminophen 650 MG Q6P PRN 08/18 2330 AC 08/20 PO 0656 Cefazolin Sodium 2 GM IQ8 08/22 1600 AC N/A 1 UNIT IV 08/23 0029 Cholecalciferol 1,000 IU DAILY 08/19 1000 AC 08/21 PO 1045 Dextrose/Sodium 1,000 ML ONCE ONE 08/22 0100 AC 08/22 Chloride IV 08/22 2058 0023 Dorzolamide HCl 1 GTT BID 08/18 2326 AC 08/22 OPH 0907 Heparin Sodium 2,196 UNIT 08/21 DC 08/21 (Porcine) IV 08/21 Heparin Sodium 5,000 UNIT .STK-MED ONE 08/21 2124 DC (Porcine) IV 08/21 2125 Heparin Sodium/ 25,000 UNIT Q24H 08/21 0715 DC 08/21 Dextrose IV 08/22 06 0900 Dextrose/Water 500 ML Hydrochlorothiazide 12.5 MG DAILY 08/20 1000 AC 08/22 PO 0907 Latanoprost 1 GTT QPM 08/19 2200 AC 08/21 OPH 2145 Losartan Potassium 50 MG DAILY 08/19 1000 AC 08/22 PO 0907 Multivitamins 1 TAB DAILY 08/19 1000 AC 08/21 PO 1043 Nifedipine 60 MG DAILY 08/19 1000 AC 08/22 PO 0907 Timolol Maleate 1 GTT BID 08/19 2199 AC 08/22 OPH 0907 Past History Medical History Blood Transfusion Hx: No Neurological: CVA EENT: macular degeneration Cardiovascular: AFIB, hypertension Respiratory: pulmonary embolism Gastrointestinal: NONE Hepatic: NONE Renal: NONE Musculoskeletal: NONE Psychiatric: NONE Endocrine: NONE Blood Disorders: DVT Cancer(s): NONE 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 Home Smoking Status: Never Smoked ETOH Use: denies use Illicit Drug Use: denies illicit drug use Functional Ability ADLs Independent: dressing, eating, toileting, bathing. Ambulation: cane Review of Systems Review of Systems: Review of systems is notable for no current problems. The patient is having no presyncopal symptoms right now. She's had no chest pain and no associated dyspnea. The Respess 12 point review of systems is unremarkable. Exam & Diagnostic Data Vital Signs and I&O Vital Signs Date Time Temp Pulse Resp B/P B/P Pulse O2 O2 Flow FiO2 Mean Ox Delivery Rate 08/22 09 150/68 08/22 09 150/68 08/22 0830 97.6 60 18 150/68 100 Room Air 08/21 2199 97.8 61 19 132/62 99 Room Air Room Air Intake & Output 08/22 1600 08/22 0800 08/22 0000 08/21 1600 08/21 0800 08/21 0000 Intake Total 350 525.6 65 300 240 600 Output Total 250 Balance 350 525.6 -185 300 240 600 Intake, IV 250 525.6 65 Intake, Oral 100 300 240 600 Output, Urine 250 Physical Exam: On physical examination she appears well. Her skin is warm and well perfused no suspicious lesions noted. The sclerae are anicteric and mucous membranes are moist. There is no cervical or subclavicular lymphadenopathy. Her breath sounds are clear bilaterally with no wheezes rhonchi noted. The cardiac exam shows a regular rhythm and rate with sinus bradycardia. Her abdomen is soft and nontender with no masses. The periphery shows no cyanosis clubbing or edema. Her neurologic exam is grossly normal for motor and sensory function. Assessment/Plan Assessment/Plan This is an 86-year-old woman with syncopal episodes and known sinus bradycardia with conduction disease. The syncopal episodes or being attributed to her sinus bradycardia and conduction disease. A permanent pacemaker will allow for maintenance of a minimal heart rate probably set at 60 bpm along with rate responsiveness. I discussed the risks and benefits the procedure with the patient and she understands and agrees. We will go with an MRI compatible device. Her Eliquis is been stopped and we will be ready for surgery on Tuesday for a dual- chamber MRI compatible permanent pacemaker. Consult Acknowledgment - Thank you for your consult request.
--- NOTE | 2017-08-22 16:23 | Operative Report ---
Operative/Inv Procedure Report Surgery Date: 08/22/17 Name of Procedure: MRI compatible dual-chamber pacemaker Pre-Operative Diagnosis: Symptomatic bradycardia with conduction disease second-degree heart block Post-Operative Diagnosis: Same Estimated Blood Loss: less than 50ml Surgeon/Lead Printer: Peter Orozco MD Anesthesia: local monitored anesthesi Operative/Procedure Note Note: After placement of monitoring lines the patient's left chest and shoulder area were prepped and draped in a sterile fashion. 1% lidocaine was used local anesthetic. Incision was made in the deltopectoral groove area and carried down to prepectoralis fascia. The cephalic vein was found and was a very large vessel. A small venotomy was made and a guidewire was passed into the right atrium under fluoroscopic guidance and a sheath dilator passed over that wire with the wire retained. Ventricular lead was then advanced into the pulmonary outflow tract and withdrawn into the right ventricular chamber and positioned at the apex. R waves were measured at 3.19 mV. The pacing threshold was at 0.8 V with an impedance of 1129 ohms. The sheath dilator was passed over the retained wire and a Medtronic atrial lead with a preformed curve was advanced into the right atrial appendage under fluoroscopic guidance. P waves were measured at 3.0 mV and the pacing threshold was at 0.4 V with an impedance of 555 ohms. Of note is that at high pacemaker rates the patient had a 2-1 AV block. The cephalic vein was occluded and the leads were tied to the cephalic vein and then secured to the prepectoralis fascia with Ethibond sutures. The leads were then connected to an MRI compatible device Pacemaker pocket was fashioned over the prepectoralis fascia. Hemostasis achieved with electrocautery and surgical clips in the pocket was irrigated with antibiotic irrigation. A pressure dressing was applied. The patient tolerated procedure well and was brought to the recovery room awake in stable condition. CC: Christopher CHAMPION,Cullen
[2017-08-22 22:13] VITALS: BP 118/78
[2017-08-23 07:04] VITALS: BP 122/72
[2017-08-23 08:19] VITALS: BP 122/72
--- NOTE | 2017-08-23 08:34 | PN- Housestaff ---
Subjective Follow-up For: -Syncopal episode -Recently diagnosed Erika luis currently on sinus rhythm -Recurrent bradycardia -History of PE- Tele-Events Since Last Visit: Paste and on sinus rhythm Subjective: Afebrile, hemodynamically stable, saturating well on room air. She denies chest pain, shortness breath, or dizziness. No acute overnight events were reported. She denies any other current active complaints. Review of Systems Constitutional: Reports: no symptoms, see HPI. Objective Last 24 Hrs of Vital Signs/I&O Vital Signs Date Time Temp Pulse Resp B/P B/P Pulse O2 O2 Flow FiO2 Mean Ox Delivery Rate 08/23 08 122/72 08/23 0819 122/72 08/23 0704 98.3 70 22 122/72 98 Room Air 08/22 2213 98.1 72 22 118/78 99 08/22 1615 97.3 71 22 150/80 97 Intake & Output 08/23 1600 08/23 0800 08/23 0000 Intake Total 70 Output Total Balance 70 Intake, IV 70 Physical Exam General Appearance: Alert, Oriented X3, Cooperative, No Acute Distress Skin: No Rashes HEENT: Atraumatic, PERRLA, EOMI, Mucous Membr. moist/pink Neck: Supple, No JVD Cardiovascular: Regular Rate, Normal S1, Normal S2, No Murmurs Lungs: Clear to Auscultation, Normal Air Movement Abdomen: Soft, No Tenderness Neurological: Normal Speech Extremities: No Clubbing, No Cyanosis, No Edema Current Medications: Current Medications Sig/Sarah Start time Last Medication Dose Route Stop Time Status Admin Acetaminophen 650 MG Q6P PRN 08/18 2330 AC 08/20 PO 0656 Cefazolin Sodium 2 GM IQ8 08/22 1600 DC 08/22 N/A 1 UNIT IV 08/23 0029 2348 Cholecalciferol 1,000 IU DAILY 08/19 1000 AC 08/23 PO 0818 Dextrose/Sodium 1,000 ML ONCE ONE 08/22 0100 DC 08/22 Chloride IV 08/22 2058 0023 Docusate Sodium 100 MG DAILY PRN 08/22 2200 AC 08/23 PO 0819 Dorzolamide HCl 1 GTT BID 08/18 2326 AC 08/23 OPH 0819 Hydrochlorothiazide 12.5 MG DAILY 08/20 1000 AC 08/23 PO 0818 Latanoprost 1 GTT QPM 08/19 2200 AC 08/22 OPH 2150 Losartan Potassium 50 MG DAILY 08/19 1000 AC 08/23 PO 0819 Morphine Sulfate 4 MG .STK-MED ONE 08/22 1426 DC IM 08/22 1427 Multivitamins 1 TAB DAILY 08/19 1000 AC 08/23 PO 0818 Nifedipine 60 MG DAILY 08/19 1000 AC 08/23 PO 0819 Polyethylene Glycol 17 GM DAILY PRN 08/22 2200 AC 08/23 PO 0819 Senna 187 MG AT BEDTIME 08/22 220 AC PO Timolol Maleate 1 GTT BID 08/19 220 AC 08/23 OPH 0819 Last 24 Hrs of Lab/Sam Results Last 24 Hrs of Labs/Mics: Laboratory Tests 08/23/17 0615: Anion Gap 12, Estimated GFR 47 L, BUN/Creatinine Ratio 18.2 Assessment/Plan Assessment: Present with syncopal episode. Negative orthostatic pressure and no dizziness prior to the episode. No seizure activity was observed which make seizure unlikely. Given the history of A. fib, RBBB, and observed bradycardia cardiology was consulted and he recommended repeating echocardiogram and pacemaker placement. DVT lower extremity were ruled out. The patient had a pacemaker placed yesterday. She did well and denies any chest pain, palpitation, shortness breath, or dizziness post the procedure. Problem list * First-degree heart block/RBBB * PE on CAT scan currently the liquids for A. fib * History of PE and DVT in 2014. * HTN * LINDA resolved * Hypokalemia resolved * Normocytic normochromic anemia with MCV on the upper border of normal * Elevated creatinine Plan * Stable for discharge if cleared by cardiothoracic * We will restart anticoagulation for A. fib after discussed with cardiothoracic * Continue home antihypertensive medication * Patient will be instructed to follow with traffic control operator Cullen White MD and cardiothoracic Dr. Orozco post discharge. * Full code * Heart healthy diet * DVT prophylaxis with Eliqus Problem List: 1. Syncopal episodes Pain Ratin Pain Location: NA Pain Goal: Remain pain free Pain Plan: See A&P Tomorrow's Labs & Rationales: See A&P
--- NOTE | 2017-08-23 09:41 | PN- Cardiology ---
Subjective Subjective: Patient feels well. She denies chest pain of shortness of breath. She is anxious to go home. Review of Systems: Eyes no blurred or double vision Ears no deafness or ringing Nose and throat no recurrent sinusitis Lungs per history of present illness Heart per history of present illness Abdomen no nausea vomiting Musculoskeletal occasional muscle and joint pains Psych no anxiety or depression Neuro without recurrent headache or seizures Endocrine no heat or cold intolerance Objective Vital Signs and I&Os Vital Signs Date Time Temp Pulse Resp B/P B/P Pulse O2 O2 Flow FiO2 Mean Ox Delivery Rate 08/23 0819 122/72 08/23 0819 122/72 08/23 0704 98.3 70 22 122/72 98 Room Air 08/22 2213 98.1 72 22 118/78 99 08/22 1615 97.3 71 22 150/80 97 Intake & Output 08/23 1600 08/23 0800 08/23 0000 08/22 1600 08/22 0800 08/22 0000 Intake Total 70 350 525.6 65 Output Total 250 Balance 70 350 525.6 -185 Intake, IV 70 250 525.6 65 Intake, Oral 100 Output, Urine 250 Physical Exam: Patient is a well-developed well-nourished female appearing in no acute distress HEENT is unremarkable Neck is supple there is no JVD Lungs are clear Heart regular rhythm S1 and S2 are normal no murmurs gallops or rubs Abdomen bowel sounds positive Extremities without edema Current Medications: Current Medications Sig/Sarah Start time Last Medication Dose Route Stop Time Status Admin Acetaminophen 650 MG Q6P PRN 08/18 2330 AC 08/20 PO 0656 Cefazolin Sodium 2 GM IQ8 08/22 1600 DC 08/22 N/A 1 UNIT IV 08/23 0029 2348 Cholecalciferol 1,000 IU DAILY 08/19 1000 AC 08/23 PO 0818 Dextrose/Sodium 1,000 ML ONCE ONE 08/22 0100 DC 08/22 Chloride IV 08/22 2058 002 Docusate Sodium 100 MG DAILY PRN 08/22 2200 AC 08/23 PO 0819 Dorzolamide HCl 1 GTT BID 08/18 2326 AC 08/23 OPH 0819 Fentanyl Citrate 100 MCG .STK-MED ONE 08/22 1048 DC IM 08/22 1049 Hydrochlorothiazide 12.5 MG DAILY 08/20 1000 AC 08/23 PO 0818 Latanoprost 1 GTT QPM 08/19 2199 AC 08/22 OPH 2150 Losartan Potassium 50 MG DAILY 08/19 1000 AC 08/23 PO 0819 Morphine Sulfate 4 MG .STK-MED ONE 08/22 1426 DC IM 08/22 1427 Multivitamins 1 TAB DAILY 08/19 1000 AC 08/23 PO 0818 Nifedipine 60 MG DAILY 08/19 1000 AC 08/23 PO 0819 Polyethylene Glycol 17 GM DAILY PRN 08/22 2199 AC 08/23 PO 0819 Senna 187 MG AT BEDTIME 08/22 2199 AC PO Timolol Maleate 1 GTT BID 08/19 2199 AC 08/23 OPH 0819 Results Last 48 Hrs of Labs/Mics: Laboratory Tests 08/23/17 0615: Anion Gap 12, Estimated GFR 47 L, BUN/Creatinine Ratio 18.2 08/22/17 0400: APTT > 120 *H, CBC w Diff MAN DIFF ORDERED, RBC 3.07 L, MCV 98.9, MCH 32.7 H, MCHC 33.0, RDW 13.5, MPV 9.0, Gran % 42.4, Lymphocytes % 42.3, Monocytes % 10.6 H, Eosinophils % 3.6, Basophils % 1.1, Absolute Granulocytes 1.7, Segmented Neutrophils 41 L, Absolute Lymphocytes 1.7, Lymphocytes 43, Monocytes 15 H, Absolute Monocytes 0.4, Absolute Eosinophils 0.1, Basophils 1, Absolute Basophils 0, Platelet Estimate ADEQUATE, Polychromasia 1+, Basophilic Stippling 1+, Ovalocytes FEW, Fld Total RBCs Counted 100 08/21/17 1950: APTT 48 H 08/21/17 1828: Anion Gap 11, Estimated GFR 39 L, BUN/Creatinine Ratio 17.7, CBC w Diff MAN DIFF ORDERED, RBC 3.27 L, MCV 99.1 H, MCH 32.7 H, MCHC 33.0, RDW 13.4, MPV 8.9, Gran % 47.8, Lymphocytes % 37.4, Monocytes % 10.5 H, Eosinophils % 2.7, Basophils % 1.6, Absolute Granulocytes 2.1, Segmented Neutrophils 47, Band Neutrophils 1, Absolute Lymphocytes 1.6, Lymphocytes 37, Monocytes 12 H, Absolute Monocytes 0.5, Eosinophils 3, Absolute Eosinophils 0.1, Absolute Basophils 0.1, Platelet Estimate ADEQUATE, Hypochromic-Microcytic 1+, Anisocytosis 1+, Macrocytic Cells 1+ Telemetry personally reviewed Baseline sinus rhythm with paced beats Assessment/Plan Assessment/Plan 1. Recurrent syncope with sinus bradycardia and known history of significant conduction disease on ECG; some periods of junctional escape rhythm noted on telemetry now status post permanent pacemaker 2. prior DVT/pulmonary embolism in 2014 ([place]) 3. paroxysmal atrial fibrillation on Eliquis 4. remote CVA 5. Hypertension 6. History of mild aortic dilatation Recommendations 1. I would resume Eliquis risk for stroke prevention when cleared by Dr. Orozco 2. Continue current antihypertensive medications 3. Patient will follow-up with Dr. White as an outpatient Continue telemetry? No
--- NOTE | 2017-08-23 09:55 | Patient Discharge Instructions ---
Discharge Instructions General Discharge Information You were seen/treated for: Syncopal episodes status post pacemaker placement for slow heart Special Instructions: Please follow-up with primary care doctor within 1-2 weeks Please follow-up with population geneticist within 1 week Please follow-up with cardiothoracic within 1-2 weeks Please start Eliquis tomorrow. Diet Continue normal diet: Yes Recommended Diet: heart healthy diet Activity Full Activity/No Limits: Yes Activity Self Limited: Yes Acute Coronary Syndrome Inclusion Criteria At DC or during hospital stay patient has or had the following: ACS DIAGNOSIS No Discharge Core Measures Meds if any: Prescribed or Continued at Discharge Meds if any: NOT Prescribed or Continued at Discharge Congestive Heart Failure Inclusion Criteria At DC or during hospital stay patient has or had the following: CHF DIAGNOSIS No Discharge Core Measures Meds if any: Prescribed or Continued at Discharge Meds if any: NOT Prescribed or Continued at Discharge Cerebrovascular accident Inclusion Criteria At DC or during hospital stay patient has or had the following: CVA/TIA Diagnosis No Discharge Core Measures Meds if any: Prescribed or Continued at Discharge Meds if any: NOT Prescribed or Continued at Discharge Venous thromboembolism Inclusion Criteria VTE Diagnosis No VTE Type NONE VTE Confirmed by (Test) NONE Discharge Core Measures - Per Current guidelines, there needs to be overlap - treatment for the first 5 days of Warfarin therapy. - If discharged on Warfarin prior to 5 days of - overlap therapy, the patient will need to be - assessed for post discharge needs including - *Post discharge parental anticoagulation - *Warfarin and/or parental anticoagulation education - *Follow up date to check INR post discharge At least 5 days overlap therapy as Inpatient No Meds if any: Prescribed or Continued at Discharge Note: Overlap Therapy is Warfarin and Anticoagulant Meds if any: NOT Prescribed or Continued at Discharge
--- NOTE | 2017-08-23 12:07 | Discharge Summary ---
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 The patient denies prodromal symptom such as dizziness, lightheadedness, palpitation, or headache. The episode lasts for a minute and is not associated with seizure activity, tongue biting, or loss of control over bowel or urine habits. Post episode she alert and oriented without any confusion, weakness or numbness. CTA was done given the syncopal and history of PE and reveal small PE, however the patient denies shortness breath, chest pain, and she is on the Eliquis for A. fib. Had negative orthostatic pressure. No seizure activity was observed. Given the history of A. fib, RBBB, and observed bradycardia cardiology was consulted and he recommended repeating echocardiogram and pacemaker given that her symptoms most likely related to cardiac conduction abnormality. Patient tolerate the procedure very well. On discharge she was in normal sinus rhythm without any complaints. She was instructed to follow with PCP, cardiology, cardiothoracic within 1-2 weeks of discharge. She was discharged on the same exact medication she was admitted with. We did not add any new medications. Allergies: Coded Allergies: NO KNOWN ALLERGIES (UNKNOWN 08/18/17) Pertinent Lab Results: SERVICE DATE: 08/20/17-EXAM TYPE: CARD - ECHOCARDIOGRAM RENETTA MCDONALD Age: 86 : 1930 Gender: F Exam Date: 08/20/2017 09:42 Exam Location: [place] Ht (in): 63 Wt (lb): 121 BSA: 1.56 BP: 112 / 60 Ordering Physician: Jose Guadalupe Roman MD Referring Physician: Cullen White M.D. Technologist: Anayeli Cohen Room Number: [id number] Indications: LIGHTHEADEDNESS Rhythm: Sinus Technical Quality: fair FINDINGS Left Ventricle Normal size left ventricle. Left ventricular wall thickness mildly increased. Normal left ventricular ejection fraction estimated at 60-65%. Right Ventricle Normal right ventricular size and function. Right Atrium Mild right atrial dilatation. Left Atrium Moderate left atrial dilatation. Mitral Valve Mild mitral annular calcification. Mild mitral regurgitation. Aortic Valve Diffuse thickening (sclerosis) of the aortic valve cusps without reduced excursion. Mild aortic regurgitation. Tricuspid Valve Tricuspid valve is normal in structure and function. Moderate tricuspid regurgitation. Right ventricular systolic pressure estimated to be elevated at 54 mmHg. Pulmonic Valve Pulmonic valve not well visualized, grossly normal. Moderate pulmonic regurgitation. Pericardium No pericardial effusion. Great Vessels Normal size aortic root. CONCLUSIONS Normal left ventricular systolic function. Moderate concentric hypertrophy.Biatrial enlargement. Moderate Pulmonary hypertension. Osmany Peters M.D. (Electronically Signed) Final Date: 20 August 2017 21:40 MEASUREMENTS (Male / Female) Normal Values 2D ECHO LV Diastolic Diameter PLAX 3.7 cm 4.2 - 5.9 / 3.9 - 5.3 cm LV Systolic Diameter PLAX 2.2 cm 2.1 - 4.0 cm LV Fractional Shortening PLAX 40.5 % 25 - 46 % LV Ejection Fraction 2D Teich 72.1 % IVS Diastolic Thickness 1.2 cm LVPW Diastolic Thickness 1.2 cm LV Relative Wall Thickness 0.6 RV Internal Dim ED PLAX 3.2 cm 1.9 - 3.8 cm LVOT Diameter 1.8 cm LA Systolic Diameter LX 5.0 cm 3.0 - 4.0 / 2.7 - 3.8 cm LA Volume 60.0 cm 18 - 58 / 22 - 52 cm Ascending Aorta Diameter 3.1 cm DOPPLER AV Peak Velocity 216.0 cm/s AV Peak Gradient 18.7 mmHg AV Mean Velocity 139.0 cm/s AV Mean Gradient 9.0 mmHg AV Velocity Time Integral 42.4 cm LVOT Peak Velocity 139.0 cm/s LVOT Peak Gradient 7.7 mmHg LVOT Mean Velocity 95.6 cm/s LVOT Mean Gradient 4.0 mmHg LVOT Velocity Time Integral 29.3 cm LVOT Stroke Volume 74.6 cm AV Area Cont Eq vti 1.8 cm AV Area Cont Eq pk 1.6 cm MV Peak Velocity 99.2 cm/s MV Peak Gradient 3.9 mmHg MV Mean Velocity 76.5 cm/s MV Mean Gradient 2.0 mmHg Mitral E Point Velocity 85.9 cm/s Mitral A Point Velocity 85.9 cm/s Mitral E to A Ratio 1.0 MV PHT Velocity 92.1 cm/s MV Deceleration [place] 165.0 cm/s MV Pressure Half Time 167.5 ms MV Area PHT 1.3 cm MV Deceleration Time 264.0 ms TR Peak Velocity 330.0 cm/s TR Peak Gradient 43.6 mmHg Right Atrial Pressure 10.0 mmHg Pulmonary Artery Systolic Pressu 53.6 mmHg Right Ventricular Systolic Press 53.6 mmHg PV Peak Velocity 139.0 cm/s PV Peak Gradient 7.7 mmHg PV Mean Velocity 92.2 cm/s PV Mean Gradient 4.0 mmHg PV Velocity Time Integral 22.9 cm LV E' Lateral Velocity 4.0 cm/s Mitral E to LV E' Lateral Ratio 21.6 LV E' Septal Velocity 2.9 cm/s Mitral E to LV E' Septal Ratio 29.6 DICTATED BY: Osmany Peters MD DATE/TIME DICTATED:08/20/172140 MOVIE SHOT CAMERA OPERATOR:BULL DATE/TIME TRANSCRIBED:08/20/172140 Disposition Summary Disposition Principal Diagnosis: Symptomatic bradycardia Additional Diagnosis: Hypertension Discharge Disposition: home or self care Discharge Instructions General Discharge Information Code Status: Full Code Patient's Diet: Heart healthy diet Patient's Activity: As tolerated Follow-Up Instructions/Appts: Please follow-up with PCP, cardiology, cardiothoracic within 1-2 week of discharge Medications at Discharge Discharge Medications: Stop taking the following medications: Apixaban (Eliquis) 5 MG TABLET ORAL TWICE DAILY Continue taking these medications: Multivitamin-Min/Iron/FA/Vit K (Multi-Day Plus Minerals Tablet) 18 MG IRON-400 MCG-25 MCG TABLET 1 Tablet ORAL DAILY Comments: Last Taken:08/23/17 Time:0800 Vitamin E Mixed (Vitamin E) (Unknown Strength) TABLET Unknown Dose ORAL DAILY Comments: Not taken at the hospital Triamcinolone Acetonide (Triamcinolone Acetonide) 80 GM OINT...G. 1 Application On the skin TWICE DAILY as needed for rash Qty = 80 Instructions: apply to affected area(s) Comments: Not taken at the hospital Valsartan/Hydrochlorothiazide (Valsartan-Hctz 160-12.5 MG Tab) 160 MG-12.5 MG TABLET 1 Tablet ORAL DAILY Comments: Last Taken:08/23/17 Time:0800 Nifedipine (Nifedipine ER) 60 MG TAB.ER.24 1 Tablet ORAL DAILY Comments: Last Taken:08/23/17 Time:0800 Calcium Carbonate/Vitamin D3 (Calcium 500 + D Tablet) (Unknown Strength) TABLET Unknown Dose ORAL DAILY Dorzolamide HCl/Timolol Maleat (Cosopt Eye Drops) 22.3 MG-6.8 MG/ML DROPS Drop Both Eyes TWICE DAILY Comments: Last Taken:08/23/17 Time:0800 Latanoprost (Latanoprost) 0.005 % DROPS 1 Drop Both Eyes Every night Comments: Last Taken:08/22/17 Time:2100 Apixaban (Eliquis) 2.5 MG TABLET 1 Tablet ORAL TWICE DAILY Comments: Last Taken:08/19/17 Time: Copies To: Christopher CHAMPION,Cullen; Martha Bocanegra APRN; Ernesto Pettit MD,Peter Marin
--- NOTE | 2017-08-23 12:36 | PN- Att Addend ---
Attending Addendum Attending Brief Note Patient seen and examined. Plan of care discussed with the medical team and the patient. Available lab work and radiology test reports were reviewed. Patient does not report any new symptoms. She status post pacemaker insertion yesterday. She appears well and denies any new symptoms. She denies any chest pain nausea vomiting sweating palpitations or difficulty breathing. Exam: General: Patient awake alert oriented without any distress CVS: S1 plus S2 without any murmur or gallops Chest: Few scattered crepitation without any wheeze. There is no respiratory distress. 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 * HTN * Hypokalemia * Normocytic normochromic anemia with MCV on the upper border of normal * Elevated creatinine Plan * Please check with cardiothoracic surgery whether patient can resume her eliquis * Continue telemetry monitoring * If clear by cardiology and Dr. Orozco she can be discharged home Current Medications Sig/Sarah Start time Last Medication Dose Route Stop Time Status Admin Acetaminophen 650 MG Q6P PRN 08/18 2330 AC 08/20 PO 0656 Cefazolin Sodium 2 GM IQ8 08/22 1600 DC 08/22 N/A 1 UNIT IV 08/23 0029 2348 Cholecalciferol 1,000 IU DAILY 08/19 1000 AC 08/23 PO 0818 Dextrose/Sodium 1,000 ML ONCE ONE 08/22 0100 DC 08/22 Chloride IV 08/22 2059 0023 Docusate Sodium 100 MG DAILY PRN 08/22 2200 AC 08/23 PO 0819 Dorzolamide HCl 1 GTT BID 08/18 2326 AC 08/23 OPH 0819 Hydrochlorothiazide 12.5 MG DAILY 08/20 1000 AC 08/23 PO 0818 Latanoprost 1 GTT QPM 08/19 2200 AC 08/22 OPH 2150 Losartan Potassium 50 MG DAILY 08/19 1000 AC 08/23 PO 0819 Morphine Sulfate 4 MG .STK-MED ONE 08/22 1426 DC IM 08/22 1427 Multivitamins 1 TAB DAILY 08/19 1000 AC 08/23 PO 0818 Nifedipine 60 MG DAILY 08/19 1000 AC 08/23 PO 0819 Polyethylene Glycol 17 GM DAILY PRN 08/22 2199 AC 08/23 PO 0819 Senna 187 MG AT BEDTIME 08/22 2199 AC PO Timolol Maleate 1 GTT BID 08/19 2199 AC 08/23 OPH 0819 Laboratory Tests 08/23/17 0615: Anion Gap 12, Estimated GFR 47 L, BUN/Creatinine Ratio 18.2 08/22/17 0400: APTT > 120 *H, CBC w Diff MAN DIFF ORDERED, RBC 3.07 L, MCV 98.9, MCH 32.7 H, MCHC 33.0, RDW 13.5, MPV 9.0, Gran % 42.4, Lymphocytes % 42.3, Monocytes % 10.6 H, Eosinophils % 3.6, Basophils % 1.1, Absolute Granulocytes 1.7, Segmented Neutrophils 41 L, Absolute Lymphocytes 1.7, Lymphocytes 43, Monocytes 15 H, Absolute Monocytes 0.4, Absolute Eosinophils 0.1, Basophils 1, Absolute Basophils 0, Platelet Estimate ADEQUATE, Polychromasia 1+, Basophilic Stippling 1+, Ovalocytes FEW, Fld Total RBCs Counted 100 08/21/17 1950: APTT 48 H 08/21/17 1828: Anion Gap 11, Estimated GFR 39 L, BUN/Creatinine Ratio 17.7, CBC w Diff MAN DIFF ORDERED, RBC 3.27 L, MCV 99.1 H, MCH 32.7 H, MCHC 33.0, RDW 13.4, MPV 8.9, Gran % 47.8, Lymphocytes % 37.4, Monocytes % 10.5 H, Eosinophils % 2.7, Basophils % 1.6, Absolute Granulocytes 2.1, Segmented Neutrophils 47, Band Neutrophils 1, Absolute Lymphocytes 1.6, Lymphocytes 37, Monocytes 12 H, Absolute Monocytes 0.5, Eosinophils 3, Absolute Eosinophils 0.1, Absolute Basophils 0.1, Platelet Estimate ADEQUATE, Hypochromic-Microcytic 1+, Anisocytosis 1+, Macrocytic Cells 1+ Vital Signs Date Time Temp Pulse Resp B/P B/P Pulse O2 O2 Flow FiO2 Mean Ox Delivery Rate 08/23 818 122/72 08/23 818 122/72 08/23 0704 98.3 70 22 122/72 98 Room Air 08/22 2213 98.1 72 22 118/78 99 08/22 1615 97.3 71 22 150/80 97 Intake & Output 08/23 1600 08/23 0800 08/23 0000 Intake Total 70 Output Total Balance 70 Intake, IV 70 Total time spent in preparation for discharge plan, patient education, and CMR preparation was 35 minutes.
== END 2017-08-23 14:20 | disposition home health service (06) | DRG 242 ==
LOC: ERH 14:47 → 1NO 22:25 → ERHI 22:25 → ENRESERV 08-19 00:55 → 1NO 08-19 01:47 → ENTRNSPT 08-22 15:28 → EDTRNSPTSTS 08-22 15:39 → CMPTRNSPT 08-22 15:54 → ENPENDDIS 08-23 12:59 → 1NO 08-23 14:20
PROVIDERS: Emergency Medicine; Hospitalist; Internal Medicine; Student in an Organized Health Care Education/Training Program
PROC: 0JH606Z Insertion of Pacemaker, Dual Chamber into Chest Subcutaneous Tissue and Fascia, Open Approach (ICD-10-PCS; principal; 2017-08-22)
PROC: 02HK3JZ Insertion of Pacemaker Lead into Right Ventricle, Percutaneous Approach (ICD-10-PCS; principal; 2017-08-22)
PROC: 02H63JZ Insertion of Pacemaker Lead into Right Atrium, Percutaneous Approach (ICD-10-PCS; principal; 2017-08-22)
DX: I44.0 Atrioventricular block, first degree (principal); I26.99 Other pulmonary embolism without acute cor pulmonale; I69.354 Hemiplegia and hemiparesis following cerebral infarction affecting left non-dominant side; D64.9 Anemia, unspecified; I45.10 Unspecified right bundle-branch block; Z79.01 Long term (current) use of anticoagulants; E87.6 Hypokalemia; Z86.711 Personal history of pulmonary embolism; Z86.718 Personal history of other venous thrombosis and embolism; I48.0 Paroxysmal atrial fibrillation; I12.9 Hypertensive chronic kidney disease with stage 1 through stage 4 chronic kidney disease, or unspecified chronic kidney disease; N18.9 Chronic kidney disease, unspecified; H40.9 Unspecified glaucoma; Z90.710 Acquired absence of both cervix and uterus; R00.1 Bradycardia, unspecified; I45.9 Conduction disorder, unspecified; I77.819 Aortic ectasia, unspecified site
CPT/HCPCS: 1NSP; 36415; 36592; 71045; 71046; 82436; 93005; 93010; 93306; 93970; 99291; C1785; C1898; J0690; J1644; J7042; J7060

== ENCOUNTER 2017-09-17 16:11 | Observation (INO) | payer OTHER, MEDICARE ==
[~2017-09-17] VITALS: Ht 157.5 cm; Wt 55.4 kg
[~2017-09-17 16:11] MED LIST changes: +CALCIUM 500 +1 EAC5 PO; +COSOPT EYE DROP10 ML OU; +ELIQUIS2.5 M1 PO; +ELIQUIS5 M1 PO; +LATANOPROST2.5 ML OU; +NIFEDIPINE ER60 M2 PO; +VALSARTAN-HCTZ1 EAC1 PO
--- NOTE | 2017-09-17 16:17 | ED SYNCOPE COMPLAINT ---
History of Present Illness General Chief Complaint: General Adult Stated Complaint: ?SYNCOPLE EPISODE Source: patient, family, old records, EMS Exam Limitations: no limitations Vital Signs & Intake/Output Vital Signs & Intake/Output Vital Signs Date Time Temp Pulse Resp B/P B/P Pulse O2 O2 Flow FiO2 Mean Ox Delivery Rate 09/17 1624 77 18 127/62 100 Room Air Allergies Coded Allergies: NO KNOWN ALLERGIES (UNKNOWN 08/18/17) Reconcile Medications Apixaban (Eliquis) 2.5 MG TABLET 1 TAB PO BID afib (Reported) Calcium Carbonate/Vitamin D3 (Calcium 500 + D Tablet) (Unknown Strength) TABLET (Unknown Dose) PO DAILY SUPPLEMENT (Reported) Dorzolamide HCl/Timolol Maleat (Cosopt Eye Drops) 22.3 MG-6.8 MG/ML DROPS BOTH EYES (Reported) Latanoprost 0.005 % DROPS 1 GTT OU QPM BOTH EYES (Reported) Multivitamin-Min/Iron/FA/Vit K (Multi-Day Plus Minerals Tablet) 18 MG IRON-400 MCG-25 MCG TABLET 1 TAB PO DAILY SUPPLEMENT (Reported) Nifedipine (Nifedipine ER) 60 MG TAB.ER.24 1 TAB PO DAILY BP (Reported) Triamcinolone Acetonide 80 GM OINT...G. 1 KERA TOP BID PRN rash apply to affected area(s) Valsartan/Hydrochlorothiazide (Valsartan-Hctz 160-12.5 MG Tab) 160 MG-12.5 MG TABLET 1 TAB PO DAILY BP (Reported) Vitamin E Mixed (Vitamin E) (Unknown Strength) TABLET (Unknown Dose) PO DAILY SUPPLEMENT (Reported) Triage Nurses Notes Reviewed? 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 Patient was in her usual state of health today. Patient got home from the pharmacy and was sitting on her bed looking at her medications when she accidentally dropped an envelope. Patient bent over to tile picker the envelope and while she was bent over she called her daughter saying that she felt like she couldn't breathe. Documentation of the stairs to find her mom had passed out again. The patient did not fall from the bed. Daughter states that the patient was unresponsive for approximately 3 minutes. There is no seizure- like activity. There is no incontinence. Patient denied any chest pain or chest tightness prior to this. Patient remembers stating that she couldn't breathe but does not remember exactly why she said that. Patient denies any difficulty breathing currently. Past History Medical History Any Pertinent Medical History? see below for history Neurological: CVA EENT: macular degeneration Cardiovascular: AFIB, hypertension Respiratory: pulmonary embolism Gastrointestinal: NONE Hepatic: NONE Renal: NONE Musculoskeletal: NONE Psychiatric: NONE Endocrine: NONE Blood Disorders: DVT Cancer(s): NONE CAD INTERN/Reproductive: NONE History of MRSA: No History of VRE: No History of CDIFF: No Surgical History Surgical History: hysterectomy Psychosocial History Who do you live with Daughter What is your primary language Tristanian Tobacco Use: Quit >30 days ago ETOH Use: denies use Illicit Drug Use: denies illicit drug use Family History Family History, If Any: MOTHER FHx: hypertension Hx Contributory? No Review of Systems Review of Systems Constitutional: Reports: no symptoms. EENTM: Reports: no symptoms. Respiratory: Reports: see HPI. Cardiovascular: Reports: no symptoms. GI: Reports: no symptoms. Genitourinary: Reports: no symptoms. Musculoskeletal: Reports: no symptoms. Skin: Reports: no symptoms. Neurological/Psychological: Reports: no symptoms. All Other Systems: Reviewed and Negative Physical Exam Physical Exam General Appearance: well developed/nourished, alert, awake, mild distress Head: atraumatic, normal appearance Eyes: Bilateral: PERRL, EOMI. Ears, Nose, Throat: normal pharynx, normal ENT inspection, hearing grossly normal Neck: normal inspection, supple, full range of motion Respiratory: normal breath sounds, chest non-tender, no respiratory distress, lungs clear Cardiovascular: regular rate/rhythm, normal peripheral pulses Gastrointestinal: normal bowel sounds, soft, non-tender, no organomegaly Back: normal inspection, normal range of motion Extremities: normal inspection, normal capillary refill, normal range of motion, no edema Psychiatric: awake, alert, oriented x 3 Cranial Nerves: normal hearing, normal speech, PERRL Motor/Sensory: no motor/sensory deficits Skin: intact, normal color, warm/dry Core Measures ACS in differential dx? Yes CVA/TIA Diagnosis: No Sepsis Present: No Sepsis Focused Exam Completed? No Progress Differential Diagnosis: AMI, aortic valve, orthostatic syncope, pacemaker malfunction, seizure, sick sinus syndrome Plan of Care: Orders Procedure Date/time Status Heart Healthy Diet 09/[address] in observation 09/17 8061 Active ED Holding Orders 09/17 175 Active Vital Signs 09/17 175 Active Code Status 09/17 175 Active Telemetry/Bleach Range Operator 09/17 161 Active TROPONIN LEVEL 09/17 161 Complete COMPREHENSIVE METABOLIC PANEL 09/17 161 Complete CBC WITHOUT DIFFERENTIAL 09/17 161 Complete EKG 09/17 161 Active Current Medications Sig/Sarah Start time Last Medication Dose Stop Time Status Admin Sodium Chloride 1,000 ML ONCE ONE 09/17 174 AC 09/17 (Normal Saline 0.9%) 09/18 0024 1745 Laboratory Tests 09/17/17 1634: Anion Gap 13, Estimated GFR 36 L, BUN/Creatinine Ratio 22.1, Glucose 110 H, Calcium 10.2, Total Bilirubin 0.6, AST 29, ALT 24, Alkaline Phosphatase 48, Troponin I 0.02, Total Protein 7.8, Albumin 4.2, Globulin 3.6, Albumin/Globulin Ratio 1.2, CBC w Diff NO MAN DIFF REQ, RBC 3.44 L, MCV 99.2 H, MCH 32.5 H, MCHC 32.8 L, RDW 12.9, MPV 8.4, Gran % 56.8, Lymphocytes % 28.8, Monocytes % 11.1 H, Eosinophils % 1.5, Basophils % 1.8, Absolute Granulocytes 2.5, Absolute Lymphocytes 1.3, Absolute Monocytes 0.5, Absolute Eosinophils 0.1, Absolute Basophils 0.1 Diagnostic Imaging: Viewed by Me: Radiology Read. Discussed w/RAD: Radiology Read. CXR Impression: PATIENT: RENETTA MCDONALD PRESENT AGE: 86 PATIENT ACCOUNT NO: [id number] : 31 LOCATION: [facility] ORDERING PHYSICIAN: Arabella Collado MD SERVICE DATE: 09/17/17 EXAM TYPE: RAD - XRY- PORTABLE CHEST XRAY EXAMINATION: XR PORTABLE CHEST CLINICAL INFORMATION: Chest pain. COMPARISON: Chest radiograph 08/22/2017. TECHNIQUE: Portable frontal view of the chest was obtained. FINDINGS: Dual-lead left-sided ICD is in stable position with leads in the region of the right atrium and right ventricle. The lungs are clear. No pleural effusion. Cardiomediastinal silhouette is within normal limits. Minimal prominence of the pulmonary vasculature is unchanged from prior examination. No acute osseous finding. IMPRESSION: No acute cardiopulmonary disease. DICTATED BY: Dalton Trent MD DATE/TIME DICTATED:1724 RN CLINICAL TRIALS:BULL DATE/TIME TRANSCRIBED:09/17/171724 CONFIDENTIAL, DO NOT COPY WITHOUT APPROPRIATE AUTHORIZATION. <Electronically signed in Other Vendor System> SIGNED BY: Dalton Trent MD 09/17/17 1731 Initial ED EKG: BIFASICULAR BLOCK WITH FIRST DEGREE HEART BLOCK, PRIOR EKG WAS PACED Prior EKG: changed (PACED) Rhythm Strip: normal sinus rhythm Comments: Unable to interrogate the pacemaker with our interrogator here in the emergency department. Dr. Varma has been consulted, he will see the patient and he will call [employer] for pacemaker interrogation. Departure Departure Disposition: STILL A PATIENT Condition: Stable Clinical Impression Primary Impression: Syncope Referrals: Martha Bocanegra APRN (PCP/Family) Departure Forms: Customer Survey General Discharge Information Admission Note Documentation of Exam: Documentation of any treatments & extenuating circumstances including Concerns Regarding Discharge (functional status, medication knowledge or non-compliance, living conditions, etc.) that warrant an admission rather than observation: Observation Note Spoke With: Carlos CHAMPION,Mona Physician Advisor Notified: ANAID CHAMPION,ARABELLA Ontiveros Place Patient In: Non-ED OBS Care Area Rationale for Observation: My rational for observation is as follows [telemetry monitoring, cardiology evaluation, pacemaker interrogation, serial enzymes, IV hydration].
[2017-09-17 16:48] LABS: ABSOLUTE BASOPHIL COUNT 0.1 /CUMM (0.0-0.2); ABSOLUTE EOSINOPHIL COUNT 0.1 /CUMM (0.0-0.7); ABSOLUTE GRANULOCYTE CT 2.5 /CUMM (1.4-6.5); ABSOLUTE LYMPH COUNT 1.3 /CUMM (1.2-3.4); ABSOLUTE MONOCYTE COUNT 0.5 /CUMM (0.10-0.60); BASOPHIL % 1.8 % (0.0-2.0); EOSINOPHIL % 1.5 % (0-5); GRANULOCYTE % 56.8 % (42.2-75.2); HEMATOCRIT 34.1 % (37-47); MEAN CORPUSCULAR HGB 32.5 PG (27.0-31.0); MEAN CORPUSCULAR HGB CONC 32.8 G/DL (33.0-37.0); MEAN CORPUSCULAR VOLUME 99.2 FL (81.0-99.0); MEAN PLATELET VOLUME 8.4 FL (7.4-10.4); RBC DISTRIBUTION WIDTH 12.9 % (11.5-14.5); RED BLOOD CELL CT 3.44 /CUMM (4.20-5.40); WHITE BLOOD CELL COUNT 4.5 /CUMM (4.8-10.8)
[2017-09-17 17:04] LABS: PLATELET COUNT 214 /CUMM (130-400)
--- NOTE | 2017-09-17 17:31 | RADIOLOGY REPORT ---
EXAMINATION: XR PORTABLE CHEST CLINICAL INFORMATION: Chest pain. COMPARISON: Chest radiograph 08/22/2017. TECHNIQUE: Portable frontal view of the chest was obtained. FINDINGS: Dual-lead left-sided ICD is in stable position with leads in the region of the right atrium and right ventricle. The lungs are clear. No pleural effusion. Cardiomediastinal silhouette is within normal limits. Minimal prominence of the pulmonary vasculature is unchanged from prior examination. No acute osseous finding. IMPRESSION: No acute cardiopulmonary disease.
--- NOTE | 2017-09-17 18:21 | History & Physical ---
Gian Rabago MD 09/17/17 1820: General Information and HPI History of Present Illness: 86-year-old woman with past medical history of bradycardia status post permanent pacemaker, CVA, macular degeneration, atrial fibrillation on eliquis, hypertension, and PE/DVT brought in by ambulance for evaluation after "passing out". Patient reports waking up in her normal state of health when in the afternoon she was sitting on her bed sorting mail when an envelope dropped to the floor. She got on her knees to car pick up driver the envelope is slipped under the bed when she developed sudden onset shortness of breath. Patient panicked and called out to her daughter whom ran up the stairs and found her mother hunched over on the ground unconscious. Patient did not fall, hit her head, have any witnessed seizure activity, bite her tongue, or lose control of her bowels or bladder. Patient was not confused after she woke approximately 40 seconds later but did reportedly have one brief episode of nausea with vomiting. For further evaluation of the symptoms she is brought to the [place] ED. Review of systems Otherwise she denies any headache, fever, chills, lightheadedness/dizziness, blurred/double vision, chest pain, palpitations, heartburn, shortness of breath, cough, nausea, vomiting, diarrhea, bowel/bladder complaints. Objective Vital signs -Temp: 97.6 -HR: 77 -RR: 18 -BP: 127/62 -O2: 100% on room air Physical exam -Gen.: Well-developed, well-nourished elderly -Welsh woman in no acute distress -HEENT: NCAT, PERRLA, EOMI, anicteric sclera, moist mucous membranes -Neck: Supple, no JVD, trachea midline, no accessory respiratory muscle use -Cardio: Normal S1/S2 without murmurs/gallops/rubs; regular rate and rhythm, PPM in left chest wall -Pulmonary: Clear to auscultation bilaterally -Abdomen: Soft, nontender, nondistended, bowel sounds intact -Neuro: Awake and alert, cranial nerves II through XII grossly intact -Extremities: Normal pulses, no cyanosis/clubbing/edema Labs/imaging/studies -CBC: WBC 4.5, hemoglobin 11.2, hematocrit 34.1, platelet 214 -BMP: Sodium 141, potassium 3.4, chloride 101, CO2 28, urea 31, creatinine 1.4, anion gap 13, glucose 110 -LFT: Within normal limits -Miscellaneous: Troponin I 0.02 -CXR: No acute cardiopulmonary disease -EKG: Old incomplete right bundle branch block with anterior fascicular block and T-wave inversions in precordial leads -Echocardiogram 08/20/17: LVEF 60-65%, RV 54 mmHg, no regional wall motion abnormalities Assessment 86-year-old woman with multiple medical problems significant for recent hospitalization for synthetic bradycardia requiring placement of a pacemaker brought in by ambulance for evaluation of a new episode of syncope. An attempt to interrogate the pacemaker in the ED was made however given that it is a new bottle and we do not have the adequate equipment to do so a client care representative from the company will arrive on-site tomorrow to perform the interrogation. It is unclear if patient syncopized due to bradycardic rhythm or if she simply had a vasovagal syncope/orthostatic hypotension. Her B1 is elevated to 31 with creatinine of 1.4 suggestive of mild dehydration for which she was given 1 L of normal saline in the ED. Orthostatic blood pressures are to be assessed. Serial troponin/EKG and cardiology evaluation are to be performed in the morning. Problem List -Syncope, possibly vasovagal -Hypokalemia -Elevated creatinine -Dehydration -History of symptomatic bradycardia s/p PPM -History of CVA -Atrial Fibrillation, on Eliquis, -Hypertension -History of DVT/PE -Macular degeneration Plan -Telemetry observation -Telemetry monitoring -Orthostatic vitals -Interogate pacemaker in am -Cardiology consult for bradycardia evaluation / PPM interrogation -Trend troponin/EKG until peak or 3 negative sets -Pain control with acetaminophen -Heart healthy -DVT PPx with Eliquis -FULL CODE Allergies/Medications Allergies: Coded Allergies: NO KNOWN ALLERGIES (UNKNOWN 08/18/17) Home Med list Apixaban (Eliquis) 2.5 MG TABLET 1 TAB PO BID afib (Reported) Calcium Carbonate/Vitamin D3 (Calcium 500 + D Tablet) (Unknown Strength) TABLET (Unknown Dose) PO DAILY SUPPLEMENT (Reported) Dorzolamide HCl/Timolol Maleat (Cosopt Eye Drops) 22.3 MG-6.8 MG/ML DROPS BOTH EYES (Reported) Latanoprost 0.005 % DROPS 1 GTT OU QPM BOTH EYES (Reported) Multivitamin-Min/Iron/FA/Vit K (Multi-Day Plus Minerals Tablet) 18 MG IRON-400 MCG-25 MCG TABLET 1 TAB PO DAILY SUPPLEMENT (Reported) Nifedipine (Nifedipine ER) 60 MG TAB.ER.24 1 TAB PO DAILY BP (Reported) Triamcinolone Acetonide 80 GM OINT...G. 1 KERA TOP BID PRN rash apply to affected area(s) Valsartan/Hydrochlorothiazide (Valsartan-Hctz 160-12.5 MG Tab) 160 MG-12.5 MG TABLET 1 TAB PO DAILY BP (Reported) Vitamin E Mixed (Vitamin E) (Unknown Strength) TABLET (Unknown Dose) PO DAILY SUPPLEMENT (Reported) Past History Travel History Traveled to [place] past 21 day No Medical History Neurological: CVA EENT: macular degeneration Cardiovascular: AFIB, hypertension, syncope Respiratory: pulmonary embolism Gastrointestinal: NONE Hepatic: NONE Renal: NONE Musculoskeletal: NONE Psychiatric: NONE Endocrine: NONE Blood Disorders: DVT Cancer(s): NONE 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 Ambulation: cane Review of Systems Review of Systems Constitutional: Reports: see HPI. Exam & Diagnostic Data Last 24 Hrs of Vital Signs/I&O Vital Signs Date Time Temp Pulse Resp B/P B/P Pulse O2 O2 Flow FiO2 Mean Ox Delivery Rate 09/17 1857 97.6 74 18 123/64 97 Room Air 09/17 1624 77 18 127/62 100 Room Air Assessment/Plan As Ranked By This Provider Problem List: 1. Syncope Core Measures/Misc (02/13) Acute Coronary Syndrome ACS Diagnosis: No Congestive Heart Failure Congestive Heart Failure Diagnosis No Cerebrovascular Accident CVA/TIA Diagnosis: No VTE (View Protocol) VTE Risk Factors Age>40 No Mechanical VTE Prophylaxis d/t N/A MechProphylax Ordered No VTE Pharm Prophylaxis d/t NA PharmProphylax ordered Sepsis (View protocol) Sepsis Present: No Nacho CHAMPION, [facility] 09/17/171: Attending MD Review Statement Attending Statement Attending MD Statement: examined this patient, discuss w/resident/PA/PROFESSIONAL ENGINEER, agreed w/resident/PA/PROFESSIONAL ENGINEER, discussed with family, reviewed images, amended to note Attending Assessment/Plan: 86 yo F with h/o HTN, glaucoma, CKD, DVT/ PE (2015), 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 Patient has been doing well post-discharge and is scheduled for rehab as per family for physical therapy. This morning, patient went down on her knees to car pick up driver an envelope on the floor, she felt short of breath and called out to her daughter. When daughter ran up the stairs, she found her mother slumped over on the floor. After about 40 secs patient regained consciousness. She had an episode of emesis, but was not confused, altered, no seizure activity or bowel/ bladder incontinence. No fall or head strike .Patient was able to recall the events. She denied chest pain, palpitations or lightheadedness. Vitals stable. Exam is unremarkable, left chest pacemaker site CDI. Labs: WBC 4.5, macrocytic anemia (H and H is stable), Plt 214, K 3.4, BUN 31, creat 1.4 ( baseline 1.1-1.4), glucose 110, trop neg. CXR: left sided dual lead PPM noted, lungs clear. EKG: sinus rhythm @ 73, first degree heart block, RBBB, LAFB, nonspecific Twave changes (old), Qtc 525. Echo (2018): EF 60-65%, moderate pulmonary hypertension. Assessment and plan: 1. Recurrent syncopal episode unclear if this related to pacemaker malfunction or underlying arrhythmia/conduction disease 2. Symptomatic bradycardia, conduction disease (bifascicular block) s/p pacemaker placement (July 2017) 3. Hypokalemia 4. History of Afib on eliquis 5. CKD stage 3 - stable 6. Essential hypertension - 23 hour observation on Telemetry - Check orthostatic BP - Watch for arrhythmias - PPM interrogation was attempted in the ER, but showed an error. - Pacemaker interrogation in AM by [email or web address] - Replete K, check Mag and replete as needed - Check TSH and free T4 - Serial EKG and troponin - Cardio consult - Gentle hydration 1 bag - Resume nifedipine, valsartan-hctz from AM DVT ppx Eliquis. Full code. Observation Initial Note - I have personally examined RENETTA MCDONALD on 09/17/17 at 2121. The disposition of RENETTA MCDONALD is uncertain at this time and before a determination can be made, she requires a period of observation for the following reasons [Syncope s/p permanent pacemaker done in July 2017]
[2017-09-17 23:02] VITALS: BP 130/62
[2017-09-18 04:30] LABS: ABSOLUTE BASOPHIL COUNT 0.1 /CUMM (0.0-0.2); ABSOLUTE EOSINOPHIL COUNT 0.1 /CUMM (0.0-0.7); ABSOLUTE GRANULOCYTE CT 1.6 /CUMM (1.4-6.5); ABSOLUTE LYMPH COUNT 1.3 /CUMM (1.2-3.4); ABSOLUTE MONOCYTE COUNT 0.4 /CUMM (0.10-0.60); BASOPHIL % 2.3 % (0.0-2.0); EOSINOPHIL % 2.1 % (0-5); GRANULOCYTE % 45.6 % (42.2-75.2); MEAN CORPUSCULAR HGB 32.9 PG (27.0-31.0); MEAN CORPUSCULAR HGB CONC 33.6 G/DL (33.0-37.0); MEAN CORPUSCULAR VOLUME 97.8 FL (81.0-99.0); MEAN PLATELET VOLUME 8.2 FL (7.4-10.4); RED BLOOD CELL CT 2.79 /CUMM (4.20-5.40); WHITE BLOOD CELL COUNT 3.4 /CUMM (4.8-10.8)
[2017-09-18 04:38] LABS: HEMATOCRIT 27.3 % (37-47)
[2017-09-18 04:57] LABS: PLATELET COUNT 163 /CUMM (130-400)
[2017-09-18 06:24] VITALS: BP 120/68
--- NOTE | 2017-09-18 09:05 | PN- Att Addend ---
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 Vitals stable. Exam is unremarkable. Labs with K 3.7 Assessment and plan: 1. Recurrent syncopal episode 2. Symptomatic bradycardia, conduction disease (bifascicular block) s/p pacemaker placement (July 2017) 3. Hypokalemia improved 4. History of Afib on eliquis 5. CKD stage 3 - stable 6. Essential hypertension - - f/u Pacemaker interrogation in AM by [email or web address] - Replete K, check Mag and replete as needed - Serial EKG and troponin negative for MD. - Cardio consulted - Gentle hydration 1 bag - Resume bp meds. DVT ppx Eliquis. Full code. Admission Lab Results I reviewed the following labs: Laboratory Tests 09/18 09/18 09/17 1000 0410 2215 Chemistry Sodium (137 - 145 mmol/L) 139 Potassium (3.5 - 5.1 mmol/L) 3.7 Chloride (98 - 107 mmol/L) 102 Carbon Dioxide (22 - 30 mmol/L) 28 Anion Gap (5 - 16) 9 BUN (7 - 17 mg/dL) 26 H Creatinine (0.5 - 1.0 mg/dL) 1.1 H Estimated GFR (>60 ml/min) 47 L BUN/Creatinine Ratio (7 - 25 %) 23.6 Magnesium (1.6 - 2.3 mg/dL) 1.7 Troponin I (< 0.11 ng/ml) Cancelled 0.04 0.03 TSH (0.270 - 4.200 uIU/mL) 1.450 Free T4 (0.85 - 1.93 ng/dL) 1.19 Hematology CBC w Diff NO MAN DIFF REQ WBC (4.8 - 10.8 /CUMM) 3.4 L RBC (4.20 - 5.40 /CUMM) 2.79 L Hgb (12.0 - 16.0 G/DL) 9.2 L Hct (37 - 47 %) 27.3 L MCV (81.0 - 99.0 FL) 97.8 MCH (27.0 - 31.0 PG) 32.9 H MCHC (33.0 - 37.0 G/DL) 33.6 RDW (11.5 - 14.5 %) 13.0 Plt Count (130 - 400 /CUMM) 163 MPV (7.4 - 10.4 FL) 8.2 Gran % (42.2 - 75.2 %) 45.6 Lymphocytes % (20.5 - 51.1 %) 36.9 Monocytes % (1.7 - 9.3 %) 13.1 H Eosinophils % (0 - 5 %) 2.1 Basophils % (0.0 - 2.0 %) 2.3 H Absolute Granulocytes (1.4 - 6.5 /CUMM) 1.6 Absolute Lymphocytes (1.2 - 3.4 /CUMM) 1.3 Absolute Monocytes (0.10 - 0.60 /CUMM) 0.4 Absolute Eosinophils (0.0 - 0.7 /CUMM) 0.1 Absolute Basophils (0.0 - 0.2 /CUMM) 0.1 09/17 1634 Chemistry Sodium (137 - 145 mmol/L) 141 Potassium (3.5 - 5.1 mmol/L) 3.4 L Chloride (98 - 107 mmol/L) 101 Carbon Dioxide (22 - 30 mmol/L) 28 Anion Gap (5 - 16) 13 BUN (7 - 17 mg/dL) 31 H Creatinine (0.5 - 1.0 mg/dL) 1.4 H Estimated GFR (>60 ml/min) 36 L BUN/Creatinine Ratio (7 - 25 %) 22.1 Glucose (65 - 99 mg/dL) 110 H Calcium (8.4 - 10.2 mg/dL) 10.2 Magnesium (1.6 - 2.3 mg/dL) 1.9 Total Bilirubin (0.2 - 1.3 mg/dL) 0.6 AST (14 - 36 U/L) 29 ALT (9 - 52 U/L) 24 Alkaline Phosphatase (<127 U/L) 48 Troponin I (< 0.11 ng/ml) 0.02 Total Protein (6.3 - 8.2 g/dL) 7.8 Albumin (3.5 - 5.0 g/dL) 4.2 Globulin (1.9 - 4.2 gm/dL) 3.6 Albumin/Globulin Ratio (1.1 - 2.2 %) 1.2 Hematology CBC w Diff NO MAN DIFF REQ WBC (4.8 - 10.8 /CUMM) 4.5 L RBC (4.20 - 5.40 /CUMM) 3.44 L Hgb (12.0 - 16.0 G/DL) 11.2 L Hct (37 - 47 %) 34.1 L MCV (81.0 - 99.0 FL) 99.2 H MCH (27.0 - 31.0 PG) 32.5 H MCHC (33.0 - 37.0 G/DL) 32.8 L RDW (11.5 - 14.5 %) 12.9 Plt Count (130 - 400 /CUMM) 214 MPV (7.4 - 10.4 FL) 8.4 Gran % (42.2 - 75.2 %) 56.8 Lymphocytes % (20.5 - 51.1 %) 28.8 Monocytes % (1.7 - 9.3 %) 11.1 H Eosinophils % (0 - 5 %) 1.5 Basophils % (0.0 - 2.0 %) 1.8 Absolute Granulocytes (1.4 - 6.5 /CUMM) 2.5 Absolute Lymphocytes (1.2 - 3.4 /CUMM) 1.3 Absolute Monocytes (0.10 - 0.60 /CUMM) 0.5 Absolute Eosinophils (0.0 - 0.7 /CUMM) 0.1 Absolute Basophils (0.0 - 0.2 /CUMM) 0.1 Admission Meds I reviewed the following Meds: Current Medications Sig/Sarah Start time Last Medication Dose Stop Time Status Admin Acetaminophen 650 MG Q6P PRN 09/17 1930 AC (Tylenol) Apixaban 2.5 MG BID 09/17 2099 AC 09/18 (Eliquis) 0922 Calcium/Vitamin D 500 MG DAILY 09/18 899 AC 09/18 (Oscal-D 500MG 921 (Osyter Shell)) Dorzolamide HCl 1 GTT BID 09/17 2099 AC 09/18 (Trusopt 2% 10 ML) 0923 Latanoprost 1 GTT QPM 09/17 2099 AC 09/17 (Xalatan) 2224 Losartan Potassium 50 MG DAILY 09/18 899 AC 09/18 (Cozaar) 0922 Multivitamins 1 TAB DAILY 09/18 0900 AC 09/18 (Theragran Vitamins) 09 Nifedipine 60 MG DAILY 09/18 899 AC 09/18 (Procardia XL) 922
[2017-09-18 10:27] VITALS: BP 120/70
[2017-09-18 14:02] VITALS: BP 116/64
--- NOTE | 2017-09-18 21:08 | Cons- Cardiology ---
General Information and HPI Consulting Request Date of Consult: 09/18/17 Requested By: Nacho CHAMPION,Abel History of Present Illness: Ms. Tadeo is an 86 year old female with history of hypertension, atrial fibrillation and DVT/PE. She also had recent permanent pacemaker placement for multiple episodes of syncope. The patient was thought to have symptomatic bradycardia and was noted to have second degree heart block. 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 The patient reached down to get the mail and became unconscious. Her daughter who found her reported that her mother complained of shortness of breath at that time. The patient denies any palpitations of lightheadedness. She currently feels well. Allergies/Medications Allergies: Coded Allergies: NO KNOWN ALLERGIES (UNKNOWN 08/18/17) Home Med List: Apixaban (Eliquis) 2.5 MG TABLET 1 TAB PO BID afib (Reported) Calcium Carbonate/Vitamin D3 (Calcium 500 + D Tablet) (Unknown Strength) TABLET (Unknown Dose) PO DAILY SUPPLEMENT (Reported) Dorzolamide HCl/Timolol Maleat (Cosopt Eye Drops) 22.3 MG-6.8 MG/ML DROPS BOTH EYES (Reported) Latanoprost 0.005 % DROPS 1 GTT OU QPM BOTH EYES (Reported) Multivitamin-Min/Iron/FA/Vit K (Multi-Day Plus Minerals Tablet) 18 MG IRON-400 MCG-25 MCG TABLET 1 TAB PO DAILY SUPPLEMENT (Reported) Nifedipine (Nifedipine ER) 60 MG TAB.ER.24 1 TAB PO DAILY BP (Reported) Triamcinolone Acetonide 80 GM OINT...G. 1 KERA TOP BID PRN rash apply to affected area(s) Valsartan/Hydrochlorothiazide (Valsartan-Hctz 160-12.5 MG Tab) 160 MG-12.5 MG TABLET 1 TAB PO DAILY BP (Reported) Vitamin E Mixed (Vitamin E) (Unknown Strength) TABLET (Unknown Dose) PO DAILY SUPPLEMENT (Reported) Review of Systems Review of Systems: A review of systems is unremarkable. 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 Ambulation: cane Exam & Diagnostic Data Vital Signs and I&O Vital Signs Date Time Temp Pulse Resp B/P B/P Pulse O2 O2 Flow FiO2 Mean Ox Delivery Rate 09/18 1402 98.3 58 20 116/64 99 Room Air 09/18 1027 60 120/70 09/18 0923 120/68 09/18 0922 120/68 09/18 0624 98.6 58 20 120/68 99 Room Air 09/17 2302 97.9 53 18 130/62 98 Room Air Intake & Output 09/18 1600 09/18 0800 09/18 0000 09/17 1600 09/17 0800 09/17 0000 Intake Total 200 1300 Output Total 800 Balance -600 1300 Intake, IV 300 Intake, Oral 200 1000 Output, Urine 800 Patient 122 lb Weight Physical Exam: General: WD/WN female in NAD; alert and oriented x 3 HEENT: NC/AT, PERRL, EOMI Neck: no JVD, no carotid bruits Heart: RRR Lungs: clear bilaterally Abdomen: soft, NT, +ve bowel sounds Extremities: no edema Assessment/Plan Assessment/Plan * This patient is without any signs or symptoms of decompensated congestive heart failure. This patient had a recent pulmonary embolism. In the setting of a PE the patient will be very pre-load dependent. Decreased venous return will result in hypotension and syncope. I suspect the bending over to grain picker her envelope cause her to valsalva and decrease venous return to her right heart. This will cause shortness of breath and syncope. The patient had her pacemaker interogated and it disclosed about 6 hours of atrial fibrillation with controlled heart rate. No significant dysrhythmias that would cause syncope. * Maintain adequate hydration and continue chronic anticoagulation. Consult Acknowledgment - Thank you for your consult request.
[2017-09-18 22:39] VITALS: BP 120/60
[2017-09-19 07:15] VITALS: BP 120/67
--- NOTE | 2017-09-19 07:29 | PN- Housestaff ---
Objective Last 24 Hrs of Vital Signs/I&O Vital Signs Date Time Temp Pulse Resp B/P B/P Pulse O2 O2 Flow FiO2 Mean Ox Delivery Rate 09/19 0715 98.3 60 20 120/67 99 09/18 2239 97.6 63 20 120/60 98 Room Air 09/18 1402 98.3 58 20 116/64 99 Room Air 09/18 1027 60 120/70 09/18 922 120/68 09/18 921 120/68 Intake & Output 09/19 0800 09/19 0000 09/18 1600 Intake Total 760 Output Total Balance 760 Intake, IV 10 Intake, Oral 750 Current Medications: Current Medications Sig/Sarah Start time Last Medication Dose Route Stop Time Status Admin Acetaminophen 650 MG Q6P PRN 09/17 193 AC PO Apixaban 2.5 MG BID 09/17 2099 AC 09/18 PO 2044 Calcium/Vitamin D 500 MG DAILY 09/18 899 AC 09/18 PO 0922 Dorzolamide HCl 1 GTT BID 09/17 2100 AC 09/18 OPH 204 Latanoprost 1 GTT QPM 09/17 2100 AC 09/18 OPH 204 Losartan Potassium 50 MG DAILY 09/18 09 AC 09/18 PO 09 Multivitamins 1 TAB DAILY 09/18 899 AC 09/18 PO 09 Nifedipine 60 MG DAILY 09/18 899 AC 09/18 PO 09
[2017-09-19 08:09] LABS: ABSOLUTE BASOPHIL COUNT 0 /CUMM (0.0-0.2); ABSOLUTE EOSINOPHIL COUNT 0.1 /CUMM (0.0-0.7); ABSOLUTE GRANULOCYTE CT 1.2 /CUMM (1.4-6.5); ABSOLUTE LYMPH COUNT 1.3 /CUMM (1.2-3.4); ABSOLUTE MONOCYTE COUNT 0.5 /CUMM (0.10-0.60); BASOPHIL % 1.2 % (0.0-2.0); GRANULOCYTE % 37.5 % (42.2-75.2); HEMATOCRIT 28.1 % (37-47); MEAN CORPUSCULAR HGB 32.4 PG (27.0-31.0); MEAN CORPUSCULAR HGB CONC 32.7 G/DL (33.0-37.0); MEAN PLATELET VOLUME 8.7 FL (7.4-10.4); RBC DISTRIBUTION WIDTH 12.6 % (11.5-14.5); RED BLOOD CELL CT 2.84 /CUMM (4.20-5.40)
[2017-09-19 08:43] VITALS: BP 120/67
[2017-09-19 09:23] LABS: PLATELET COUNT 164 /CUMM (130-400); WHITE BLOOD CELL COUNT 3.1 /CUMM (4.8-10.8)
--- NOTE | 2017-09-19 09:35 | PN-Observation ---
Yaron CHAMPION,Pj 09/19/17 0934: Observation Note Observation Note _ I have personally examined RENETTA MCDONALD. her disposition is uncertain at this time. Before a determination can be made, she requires continued observation for the following reasons [syncope]. Assessment/Plan Medical Assessment: Patient is a 86-year-old female with an extensive PMH significant for multiple syncopal episodes of bradycardia requiring pacemaker placement last month, PE, A. fib, macular degeneration, HTN, CVA who was brought in by ambulance to the [facility] ED after a syncopal episode at home. #Syncope Patient's pacemaker was interrogated which was significant only for paroxysmal A. fib episode, no arrhythmias that would likely contribute to syncope. Based on patient's recollection of her syncopal event, she became short of breath while bending down and something off the floor, likely representing vasovagal. ACS was ruled out with serial troponins and EKGs. Orthostatic vital signs were negative for orthostatic hypotension -Patient is stable for discharge and will follow up with her senior analyst as an outpatient #Chronic medical problems -Continue home medications Diet: Heart healthy DVT prophylaxis: Fahad Carmona CODE STATUS: Full code Problem List: 1. Syncope Subjective Follow-up For: syncope Tele-Events Since Last Visit: 5 beat of V. tach, at approximately 0510, paced rhythm on telemetry, with occasional runs of non-pacing Subjective: Patient was seen and examined at bedside. She is resting comfortably. She had no acute events overnight. She was referred to being discharged, and feels well enough to go home. She denies any lightheadedness, dizziness, syncopal episodes , chest pains, palpitations. Review of Systems Constitutional: Reports: no symptoms. EENTM: Reports: no symptoms. Cardiovascular: Reports: no symptoms. Respiratory: Reports: no symptoms. Gastrointestinal: Reports: no symptoms. Genitourinary: Reports: no symptoms. Musculoskeletal: Reports: no symptoms. Skin: Reports: no symptoms. Objective Last 24 Hrs of Vital Signs/I&O Vital Signs Date Time Temp Pulse Resp B/P B/P Pulse O2 O2 Flow FiO2 Mean Ox Delivery Rate 09/19 0843 98.3 60 20 120/67 09/19 0843 98.3 60 20 120/67 09/19 0715 98.3 60 20 120/67 99 09/18 2239 97.6 63 20 120/60 98 Room Air 09/18 1402 98.3 58 20 116/64 99 Room Air 09/18 1027 60 120/70 Intake & Output 09/19 1600 09/19 0800 09/19 0000 Intake Total 760 Output Total Balance 760 Intake, IV 10 Intake, Oral 750 Physical Exam General Appearance: Alert, Oriented X3, Cooperative, No Acute Distress Sepsis Skin Exam (color): Normal for Ethnicity Cardiovascular: Regular Rate, Normal S1, Normal S2, pacemaker in place Lungs: Clear to Auscultation, Normal Air Movement Abdomen: Normal Bowel Sounds, Soft, No Tenderness Neurological: Normal Speech, Normal Tone, Sensation Intact Extremities: No Clubbing, No Cyanosis, No Edema Current Medications: Current Medications Sig/Sarah Start time Last Medication Dose Route Stop Time Status Admin Acetaminophen 650 MG Q6P PRN 09/17 1930 AC PO Apixaban 2.5 MG BID 09/17 2100 AC 09/19 PO 0843 Calcium/Vitamin D 500 MG DAILY 09/18 09 AC 09/19 PO 0843 Dorzolamide HCl 1 GTT BID 09/17 2100 AC 09/19 OPH 0844 Hydrochlorothiazide 12.5 MG DAILY 09/19 0900 AC 09/19 PO 0843 Latanoprost 1 GTT QPM 09/17 2100 AC 09/18 OPH 2043 Losartan Potassium 50 MG DAILY 09/18 0900 AC 09/19 PO 0843 Multivitamins 1 TAB DAILY 09/18 0900 AC 09/19 PO 0843 Nifedipine 60 MG DAILY 09/18 09 AC 09/19 PO 0843 Katie CHAMPION,Farrah 09/19/17 1101: Observation Note Observation Note _ Patient seen and examined. Plan of care discussed with the medical team and the patient. Available lab work and radiology test reports were reviewed. Patient feels well and she is currently sitting in chair and is asymptomatic. She is patient to go home today. She does not report any new complaints. Vitals are stable. Exam: General: Patient awake alert oriented without any distress CVS: S1 plus S2 without any murmur or gallops Chest: Few scattered crepitation without any wheeze. There is no respiratory distress. 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 Her WBC count is 3.1 and hematocrit is 28.1. Assessment plan Syncope etiology unclear likely vasovagal without any signs of arrhythmia. Her pacemaker was interrogated and she appeared to have A. fib without any RVR. Plans discharge home today if cleared by cardiology. Plan of care discussed with patient's daughter who was in the room.
--- NOTE | 2017-09-19 09:40 | Patient Discharge Instructions ---
Discharge Instructions General Discharge Information You were seen/treated for: Syncope Special Instructions: Please follow-up with your primary care physician within 1 week of discharge. 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 Take all medication as directed. Call your doctor or return to the ER if you have shortness of breath, chest pain , lightheadedness or loss of consciousness. Acute Coronary Syndrome Inclusion Criteria At DC or during hospital stay patient has or had the following: ACS DIAGNOSIS No Discharge Core Measures Meds if any: Prescribed or Continued at Discharge Meds if any: NOT Prescribed or Continued at Discharge Congestive Heart Failure Inclusion Criteria At DC or during hospital stay patient has or had the following: CHF DIAGNOSIS No Discharge Core Measures Meds if any: Prescribed or Continued at Discharge Meds if any: NOT Prescribed or Continued at Discharge Cerebrovascular accident Inclusion Criteria At DC or during hospital stay patient has or had the following: CVA/TIA Diagnosis No Discharge Core Measures Meds if any: Prescribed or Continued at Discharge Meds if any: NOT Prescribed or Continued at Discharge Venous thromboembolism Inclusion Criteria VTE Diagnosis No VTE Type NONE VTE Confirmed by (Test) NONE Discharge Core Measures - Per Current guidelines, there needs to be overlap - treatment for the first 5 days of Warfarin therapy. - If discharged on Warfarin prior to 5 days of - overlap therapy, the patient will need to be - assessed for post discharge needs including - *Post discharge parental anticoagulation - *Warfarin and/or parental anticoagulation education - *Follow up date to check INR post discharge At least 5 days overlap therapy as Inpatient No Meds if any: Prescribed or Continued at Discharge Note: Overlap Therapy is Warfarin and Anticoagulant Meds if any: NOT Prescribed or Continued at Discharge
--- NOTE | 2017-09-19 11:41 | PN- Cardiology ---
Subjective Subjective: Patient is sitting in her chair and resting comfortably with no complaints. Objective Vital Signs and I&Os Vital Signs Date Time Temp Pulse Resp B/P B/P Pulse O2 O2 Flow FiO2 Mean Ox Delivery Rate 09/20 0743 98.3 60 20 120/67 09/19 0843 98.3 60 20 120/67 09/19 0715 98.3 60 20 120/67 99 09/18 2239 97.6 63 20 120/60 98 Room Air 09/18 1402 98.3 58 20 116/64 99 Room Air Intake & Output 09/19 1600 09/19 0800 09/19 0000 09/18 1600 09/18 0800 09/18 0000 Intake Total 305 693 5364 Output Total 800 Balance 760 -600 1300 Intake, IV 10 300 Intake, Oral 172 551 5994 Output, Urine 800 Patient 122 lb Weight Physical Exam: General: no apparent distress. Alert. Eyes: No obvious scleral icterus. HEENT: No jugular venous distention or abnormal jugular venous pulsations. Cardiovascular: Normal intensity S1/S2. Pacemaker noted Respiratory: Lungs clear to auscultation bilaterally. Abdomen: Soft, nontender with no guarding or rebound tenderness. Musculoskeletal: No clubbing or cyanosis noted Skin: No obvious rashes or ulcerations. Neurologic: No gross focal deficits noted. Current Medications: Current Medications Sig/Sarah Start time Last Medication Dose Route Stop Time Status Admin Acetaminophen 650 MG Q6P PRN 09/17 1930 AC PO Apixaban 2.5 MG BID 09/17 2099 AC 09/19 PO 0843 Calcium/Vitamin D 500 MG DAILY 09/18 899 AC 09/19 PO 0843 Dorzolamide HCl 1 GTT BID 09/17 2099 AC 09/19 OPH 0844 Hydrochlorothiazide 12.5 MG DAILY 09/19 09 AC 09/19 PO 0843 Latanoprost 1 GTT QPM 09/17 2099 AC 09/18 OPH 2043 Losartan Potassium 50 MG DAILY 09/18 899 AC 09/19 PO 0843 Magnesium Oxide 400 MG ONE ONE 09/19 0945 DC 09/19 PO 09/19 0946 1020 Multivitamins 1 TAB DAILY 09/18 899 AC 09/19 PO 0843 Nifedipine 60 MG DAILY 09/18 899 AC 09/19 PO 0843 Results Last 48 Hrs of Labs/Mics: Laboratory Tests 09/19/17 0628: Anion Gap 9, Estimated GFR 43 L, BUN/Creatinine Ratio 22.5, Magnesium 1.7, CBC w Diff NO MAN DIFF REQ, RBC 2.84 L, MCV 99.0, MCH 32.4 H, MCHC 32.7 L, RDW 12.6, MPV 8.7, Gran % 37.5 L, Lymphocytes % 42.0, Monocytes % 16.3 H, Eosinophils % 3.0, Basophils % 1.2, Absolute Granulocytes 1.2 L, Absolute Lymphocytes 1.3, Absolute Monocytes 0.5, Absolute Eosinophils 0.1, Absolute Basophils 0 09/18/17 1000: Troponin I Cancelled 09/18/17 0410: Anion Gap 9, Estimated GFR 47 L, BUN/Creatinine Ratio 23.6, Magnesium 1.7, Troponin I 0.04, TSH 1.450, Free T4 1.19, CBC w Diff NO MAN DIFF REQ, RBC 2.79 L, MCV 97.8, MCH 32.9 H, MCHC 33.6, RDW 13.0, MPV 8.2, Gran % 45.6, Lymphocytes % 36.9, Monocytes % 13.1 H, Eosinophils % 2.1, Basophils % 2.3 H, Absolute Granulocytes 1.6, Absolute Lymphocytes 1.3, Absolute Monocytes 0.4, Absolute Eosinophils 0.1, Absolute Basophils 0.1 09/17/17 2215: Troponin I 0.03 09/17/17 1634: Anion Gap 13, Estimated GFR 36 L, BUN/Creatinine Ratio 22.1, Glucose 110 H, Calcium 10.2, Magnesium 1.9, Total Bilirubin 0.6, AST 29, ALT 24, Alkaline Phosphatase 48, Troponin I 0.02, Total Protein 7.8, Albumin 4.2, Globulin 3.6, Albumin/Globulin Ratio 1.2, CBC w Diff NO MAN DIFF REQ, RBC 3.44 L, MCV 99.2 H , MCH 32.5 H, MCHC 32.8 L, RDW 12.9, MPV 8.4, Gran % 56.8, Lymphocytes % 28.8, Monocytes % 11.1 H, Eosinophils % 1.5, Basophils % 1.8, Absolute Granulocytes 2.5, Absolute Lymphocytes 1.3, Absolute Monocytes 0.5, Absolute Eosinophils 0.1, Absolute Basophils 0.1 Recent Imaging Studies: Telemetry tracings were personally reviewed and show sinus rhythm with occasional pacing and 5 beat wide complex run Assessment/Plan Assessment/Plan 1. 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 prior DVT/pulmonary embolism in 2015 ([place]) 3. paroxysmal atrial fibrillation on Eliquis 4. remote CVA 5. Hypertension 6. History of mild aortic dilatation The patient is resting comfortably and feels at baseline with no active symptoms. Telemetry shows intermittent pacing without evidence of sustained arrhythmia. Pacemaker interrogation showed only paroxysmal atrial fibrillation for which she has a known history and is on anticoagulation. Normal oxygenation on room air. No additional inpatient cardiac testing currently required; she should follow-up with me within 1 week of discharge. Francis White MD [facility] Continue telemetry? No
== END 2017-09-19 14:15 | disposition home health service (06) ==
LOC: ERH 16:11 → 1NO 17:59 → ERHI 17:59 → ENRESERV 18:36 → ERHI 19:02 → ENTRNSPT 19:34 → EDTRNSPTSTS 19:39 → 1NO 19:47 → CMPTRNSPT 19:56 → 1NO 09-18 14:56 → ENTRNSPT 09-19 13:46 → EDTRNSPTSTS 09-19 14:00 → EDTRNSPT 09-19 14:00 → 1NO 09-19 14:15 → CMPTRNSPT 09-19 14:32
PROVIDERS: Emergency Medicine; Internal Medicine Interventional Cardiology; Student in an Organized Health Care Education/Training Program
DX: R55 Syncope and collapse (principal); R00.1 Bradycardia, unspecified; Z95.0 Presence of cardiac pacemaker; I69.392 Facial weakness following cerebral infarction; H35.30 Unspecified macular degeneration; I48.0 Paroxysmal atrial fibrillation; Z79.01 Long term (current) use of anticoagulants; I12.9 Hypertensive chronic kidney disease with stage 1 through stage 4 chronic kidney disease, or unspecified chronic kidney disease; N18.3 Chronic kidney disease, stage 3 (moderate); Z86.711 Personal history of pulmonary embolism; E87.6 Hypokalemia; E86.0 Dehydration; H40.9 Unspecified glaucoma
CPT/HCPCS: 36415; 36592; 71045; 82436; 93005; 93010; G0378

== ENCOUNTER 2017-10-11 12:09 | Inpatient (IN) | payer OTHER, MEDICARE ==
[~2017-10-11] VITALS: Ht 154.9 cm; Wt 55.9 kg
--- NOTE | 2017-10-11 12:24 | ED GENERAL ADULT ---
History of Present Illness General Chief Complaint: Chest Pain Stated Complaint: CP Vital Signs & Intake/Output Vital Signs & Intake/Output Vital Signs Date Time Temp Pulse Resp B/P B/P Pulse O2 O2 Flow FiO2 Mean Ox Delivery Rate 10/11 1221 98.2 72 18 178/86 96 Allergies Coded Allergies: NO KNOWN ALLERGIES (UNKNOWN 08/18/17) Reconcile Medications Apixaban (Eliquis) 2.5 MG TABLET 1 TAB PO BID afib (Reported) Calcium Carbonate/Vitamin D3 (Calcium 500 + D Tablet) (Unknown Strength) TABLET (Unknown Dose) PO DAILY SUPPLEMENT (Reported) Dorzolamide HCl/Timolol Maleat (Cosopt Eye Drops) 22.3 MG-6.8 MG/ML DROPS 1 GTT OU BID BOTH EYES (Reported) Latanoprost 0.005 % DROPS 1 GTT OU QPM BOTH EYES (Reported) Multivitamin-Min/Iron/FA/Vit K (Multi-Day Plus Minerals Tablet) 18 MG IRON-400 MCG-25 MCG TABLET 1 TAB PO DAILY SUPPLEMENT (Reported) Nifedipine (Nifedipine ER) 60 MG TAB.ER.24 1 TAB PO DAILY BP (Reported) Triamcinolone Acetonide 80 GM OINT...G. 1 KERA TOP BID PRN rash apply to affected area(s) Valsartan/Hydrochlorothiazide (Valsartan-Hctz 160-12.5 MG Tab) 160 MG-12.5 MG TABLET 1 TAB PO DAILY BP (Reported) Vitamin E Mixed (Vitamin E) (Unknown Strength) TABLET (Unknown Dose) PO DAILY SUPPLEMENT (Reported) Triage Note: SENT BY [facility] , C/O LEFT SIDED CHEST AND RIB PAIN X 2 MONHS, ALSO C/O FEELING "TIRED" , WITH SOB, DIZZINESS. EKG DONE ON ARRIVAL. 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
--- NOTE | 2017-10-11 12:31 | ED CARDIAC/CP/PALPITATIONS ---
History of Present Illness General Chief Complaint: Chest Pain Stated Complaint: CP Source: patient Exam Limitations: no limitations Vital Signs & Intake/Output Vital Signs & Intake/Output Vital Signs Date Time Temp Pulse Resp B/P B/P Pulse O2 O2 Flow FiO2 Mean Ox Delivery Rate 10/11 1641 98.6 76 18 140/72 97 Room Air 10/11 1354 98.7 76 18 174/76 98 Room Air 10/11 1239 Room Air 10/11 1221 98.2 72 18 178/86 96 Allergies Coded Allergies: NO KNOWN ALLERGIES (UNKNOWN 08/18/17) Reconcile Medications Apixaban (Eliquis) 2.5 MG TABLET 1 TAB PO BID afib (Reported) Calcium Carbonate/Vitamin D3 (Calcium 500 + D Tablet) (Unknown Strength) TABLET (Unknown Dose) PO DAILY SUPPLEMENT (Reported) Dorzolamide HCl/Timolol Maleat (Cosopt Eye Drops) 22.3 MG-6.8 MG/ML DROPS 1 GTT OU BID BOTH EYES (Reported) Latanoprost 0.005 % DROPS 1 GTT OU QPM BOTH EYES (Reported) Multivitamin-Min/Iron/FA/Vit K (Multi-Day Plus Minerals Tablet) 18 MG IRON-400 MCG-25 MCG TABLET 1 TAB PO DAILY SUPPLEMENT (Reported) Nifedipine (Nifedipine ER) 60 MG TAB.ER.24 1 TAB PO DAILY BP (Reported) Triamcinolone Acetonide 80 GM OINT...G. 1 KERA TOP BID PRN rash apply to affected area(s) Valsartan/Hydrochlorothiazide (Valsartan-Hctz 160-12.5 MG Tab) 160 MG-12.5 MG TABLET 1 TAB PO DAILY BP (Reported) Vitamin E Mixed (Vitamin E) (Unknown Strength) TABLET (Unknown Dose) PO DAILY SUPPLEMENT (Reported) Triage Note: SENT BY [facility] , C/O LEFT SIDED CHEST AND RIB PAIN X 2 MONHS, ALSO C/O FEELING "TIRED" , WITH SOB, DIZZINESS. EKG DONE ON ARRIVAL. Triage Nurses Notes Reviewed? yes Onset: Gradual Duration: week(s): Timing: recent history Quality/Severity: moderate Location: left chest Radiation: no radiation HPI: 87yo female with hx of afib s/p pacemaker, PEs on eliquis, presents to ED complaining of left sided chest pain below her left breast for the past few weeks. Patient describes pain as "soreness", worse with wearing a bra. Patient also reports fatigue, headache, weakness. Symptoms improve when she lays down and rests. Symptoms worsen when she exerts herself. Patient had a pacemaker placed about 2 months ago, she states that these symptoms have been present since the pacemaker was put in. Patient denies cough, diarrhea, constipation, abdominal pain, fever. (Shanthi Black) Past History Travel History Traveled to [place] past 21 day No Medical History Any Pertinent Medical History? 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 No (Shanthi Black) Review of Systems Review of Systems Constitutional: Reports: see HPI. EENTM: Reports: no symptoms. Respiratory: Reports: see HPI. Cardiovascular: Reports: see HPI. GI: Reports: no symptoms. Genitourinary: Reports: no symptoms. Musculoskeletal: Reports: no symptoms. Skin: Reports: no symptoms. Neurological/Psychological: Reports: no symptoms. Hematologic/Endocrine: Reports: no symptoms. Immunologic/Allergic: Reports: no symptoms. All Other Systems: Reviewed and Negative (Shanthi Black) Physical Exam Physical Exam General Appearance: well developed/nourished, no apparent distress, alert, awake Head: atraumatic, normal appearance Eyes: Bilateral: normal appearance. Ears, Nose, Throat: hearing grossly normal Neck: normal inspection, supple, full range of motion Respiratory: normal breath sounds, no respiratory distress, lungs clear, tenderness to left anterior chest below breast Cardiovascular: regular rate/rhythm, pacemaker site is nontender, healed incision Gastrointestinal: normal bowel sounds, soft, non-tender, no organomegaly Back: normal inspection, normal range of motion Extremities: normal inspection Neurologic/Psych: awake, alert, oriented x 3 Skin: intact, normal color, warm/dry Core Measures ACS in differential dx? Yes CVA/TIA Diagnosis No Sepsis Present: No Sepsis Focused Exam Completed? No (Alicia HAWLEY,Shanthi Jones) Progress Differential Diagnosis: AMI, atrial fibrillation, CHF/pulm edema, costochondritis, musculoskeletal pain, myocarditis, pericarditis, pneumonia, pneumothorax, pulmonary embolism, unstable angina Plan of Care: Orders Procedure Date/time Status Heart Healthy Diet 10/12 B Active Patient Data 10/11 1710 Active ED Holding Orders 10/11 1700 Active Admit to inpatient 10/11 1659 Active Vital Signs 10/11 1659 Active Code Status 10/11 1659 Active TROPONIN LEVEL 10/11 1629 Complete EKG 10/11 1629 Active Intake & Output 10/11 1445 Active MAGNESIUM 10/11 1300 Complete B-TYPE NATRIURETIC PEP (BNP) 10/11 1300 Complete TROPONIN LEVEL 10/11 1241 Complete D-DIMER 10/11 1241 Complete COMPREHENSIVE METABOLIC PANEL 10/11 1241 Complete CBC WITHOUT DIFFERENTIAL 10/11 1241 Complete EKG 10/11 1210 Active Laboratory Tests 10/11/17 1649: Troponin I 0.04 10/11/17 1300: Anion Gap 16, Estimated GFR 36 L, BUN/Creatinine Ratio 20.7, Glucose 106 H, Calcium 10.1, Magnesium 1.9, Total Bilirubin 0.5, AST 26, ALT 31, Alkaline Phosphatase 53, Troponin I 0.02, Fug-O-Wonaiqkgkrl Pept 717 H, Total Protein 8.6 H, Albumin 4.6, Globulin 4.0, Albumin/Globulin Ratio 1.2, D-Dimer High Sensitivty 984 H, CBC w Diff NO MAN DIFF REQ, RBC 3.37 L, MCV 99.1 H, MCH 32.9 H, MCHC 33.2, RDW 12.8, MPV 8.8, Gran % 52.6, Lymphocytes % 31.8, Monocytes % 13.2 H, Eosinophils % 1.6, Basophils % 0.8, Absolute Granulocytes 2.0, Absolute Lymphocytes 1.2, Absolute Monocytes 0.5, Absolute Eosinophils 0.1, Absolute Basophils 0 10/11/17 1242: Magnesium Cancelled, Aqo-Q-Cvoswajtzon Pept Cancelled Patient's d-dimer is elevated, we will obtain chest CTA. Patient has history of recent pulmonary embolisms. EKG is stable. CTA shows 2 new pulmonary embolisms compared to her previous chest CTA in July of 2017. Given patient's left sided chest pain, PEs are likely responsible for her symptoms. Patient has been on eliquis however is still developing further blood clots. Patient requires hospital admission given her pulmonary embolisms and chest pain. Patient requires cardiology consult, telemetry monitoring, repeat EKGs, possible changes in medications/anticoagulation, premature discharge is unsafe. Diagnostic Imaging: Viewed by Me: Radiology Read, CT Scan. Discussed w/RAD: Radiology Read, CT Scan. Radiology Impression: PATIENT: RENETTA MCDONALD PRESENT AGE: 87 PATIENT ACCOUNT NO: [id number] : 31 LOCATION: [facility] ORDERING PHYSICIAN: Shanthi HAWLEY SERVICE DATE: 10/11/17 EXAM TYPE: CAT - CTA CHEST-PULMONARY EMBOLISM EXAMINATION: CT ANGIOGRAM OF THE CHEST WITH AND WITHOUT CONTRAST (CT PULMONARY ANGIOGRAM FOR PE) CLINICAL INFORMATION: Presumptive Dx: R/O PE Signs and Symptoms: CHEST PAIN, RECENT SX COMPARISON: Radiographs from the same date and CT dated 08/18/2017 TECHNIQUE: Prior to contrast administration, noncontrast localization images were obtained. Subsequently, multidetector volumetric imaging was performed from the thoracic inlet to below the diaphragms following the administration of 95 mL Optiray 320 intravenous contrast. No contrast reaction reported. Sagittal, coronal, and MIP oblique sagittal reformatted images were obtained on the CT workstation, uploaded to PACS, and reviewed. Total exam dose-length product 318 mGy-cm. FINDINGS: QUALITY OF STUDY/CONTRAST BOLUS: Satisfactory PULMONARY ARTERIES: Again seen are several filling defects within segmental and subsegmental pulmonary artery branches in each lobe of both lungs. At least 8 emboli are identified. The majority of these were present on the prior study from 2017. 2 emboli within the posterior basilar segment of the left lower lobe appear new as compared to prior (image 62/83 of series 203). The pulmonary outflow tract is dilated (3.6 cm in diameter). The left main pulmonary artery measures 2.4 cm. THORACIC AORTA: Incidental note is made of an aberrant right subclavian artery, coursing posterior to the esophagus. Ascending thoracic aorta is at the limits of normal in caliber, measuring 4 cm. Descending thoracic aorta is normal in caliber. LUNG: No suspicious pulmonary nodules are identified. There is mild ectasia of the peripheral pulmonary vasculature. A calcified granuloma is present within the right lower lobe inferiorly and medially. Central airways are clear. There is mild dependent atelectasis. No focal consolidation. PLEURA: No pleural effusion or pneumothorax. MEDIASTINUM: The left atrium is enlarged. Calcific effusions are present on the aortic valve. Small pericardial fluid is normal. No pericardial effusion. No evidence of septal bowing or right heart strain. CHEST WALL/AXILLA: No axillary or internal mammary lymphadenopathy. OSSEOUS STRUCTURES: Moderate multilevel degenerative disc disease. Kyphoscoliosis is present in the thoracic spine. No acute fractures. UPPER ABDOMEN: Multiple cysts are present at the upper pole left kidney. No reflux of contrast into the hepatic veins to suggest elevated right heart pressures. IMPRESSION: 1. Multiple pulmonary emboli are again seen in both lungs at the segmental and subsegmental levels. Two of these (within the left lower lobe) are new from the prior study, though could be subacute. 2. Cardiomegaly with left atrial enlargement. 3. Dilatation of the pulmonary outflow tract and pulmonary vessels diffusely, suggesting increased pulmonary pressures. VTE: positive DICTATED BY: Joel Rousseau MD DATE/TIME DICTATED:1550 MEDICAL RECORDS CUSTODIAN:BULL DATE/TIME TRANSCRIBED:10/11/171550 CONFIDENTIAL, DO NOT COPY WITHOUT APPROPRIATE AUTHORIZATION. <Electronically signed in Other Vendor System> SIGNED BY: Joel Rousseau MD 10/11/17 1613 CXR Impression: PATIENT: RENETTA MCDONALD PRESENT AGE: 87 PATIENT ACCOUNT NO: [id number] : 31 LOCATION: [facility] ORDERING PHYSICIAN: Shanthi HAWLEY SERVICE DATE: 10/11/171242 EXAM TYPE: RAD - XRY-CHEST XRAY, TWO VIEWS EXAMINATION: XR CHEST, 2 VIEWS CLINICAL INFORMATION: Dyspnea. Effusion. Congestion. Rule out pneumonia. COMPARISON: 09/17/2017 TECHNIQUE: PA and lateral views of the chest were obtained. FINDINGS: Pacemaker overlies the left pectoral/axillary region. Leads terminate in the right atrium and right ventricle. Cardiac silhouette is enlarged. Mild pulmonary venous congestion. As seen on the lateral view, there are increased reticular opacities at the lung bases posteriorly. No pleural effusion. No pneumothorax. Right convex thoracic scoliotic curvature. Degenerative disc disease present in the thoracic spine. Bones are osteopenic. IMPRESSION: Cardiomegaly with pulmonary venous congestion. Reticular opacities in the lung bases are best seen on lateral view and likely correspond to mild interstitial edema. Atypical pneumonia is less likely. No focal consolidation. DICTATED BY: Joel Rousseau MD DATE/TIME DICTATED:10/11/171410 MEDICAL RECORDS CUSTODIAN:BULL DATE/TIME TRANSCRIBED:10/11/171410 CONFIDENTIAL, DO NOT COPY WITHOUT APPROPRIATE AUTHORIZATION. <Electronically signed in Other Vendor System> SIGNED BY: Joel Rousseau MD 10/11/171418 Initial ED EKG: sinus rhythm @65bpm, first degree AV block, RBBB, nonspecific ST changes Prior EKG: changed (09/18/17) (Shanthi Black) Departure Departure Disposition: STILL A PATIENT Condition: Stable Clinical Impression Primary Impression: Pulmonary emboli Qualifiers: Pulmonary embolism type: other Chronicity: acute Acute cor pulmonale presence: with acute cor pulmonale Qualified Code: I26.09 - Other pulmonary embolism with acute cor pulmonale Secondary Impressions: Chest pain Qualifiers: Chest pain type: unspecified Qualified Code: R07.9 - Chest pain, unspecified Referrals: Martha Bocanegra APRN (PCP/Family) Departure Forms: Customer Survey General Discharge Information Admission Note Spoke With: Timbo Fritz MD Documentation of Exam: Documentation of any treatments & extenuating circumstances including Concerns Regarding Discharge (functional status, medication knowledge or non-compliance, living conditions, etc.) that warrant an admission rather than observation: [ Patient has two new PEs with left sided chest pain, she requires cardiology consult, telemetry monitoring, repeat EKGs, possible changes in medications/ anticoagulation, premature discharge is unsafe] (Shanthi Black) PA/LINE PULLER Co-Sign Statement Statement: ED Attending supervision documentation- [x] I saw and evaluated the patient. I have also reviewed all the pertinent lab results and diagnostic results. I agree with the findings and the plan of care as documented in the PA's/LINE PULLER's documentation. [] I have reviewed the ED Record and agree with the PA's/LINE PULLER's documentation. [] Additions or exceptions (if any) to the PAs/LINE PULLER's note and plan are summarized below: [] (Lawrence Byole DO) Critical Care Note Critical Care Note Critical Care Time: 30-74 min (Shanthi Black) Critical Care Time: 30-74 min (Shanthi Black)
[2017-10-11 13:13] LABS: ABSOLUTE BASOPHIL COUNT 0 /CUMM (0.0-0.2); ABSOLUTE EOSINOPHIL COUNT 0.1 /CUMM (0.0-0.7); ABSOLUTE LYMPH COUNT 1.2 /CUMM (1.2-3.4); ABSOLUTE MONOCYTE COUNT 0.5 /CUMM (0.10-0.60); BASOPHIL % 0.8 % (0.0-2.0); EOSINOPHIL % 1.6 % (0-5); HEMATOCRIT 33.4 % (37-47); MEAN CORPUSCULAR HGB 32.9 PG (27.0-31.0); MEAN CORPUSCULAR HGB CONC 33.2 G/DL (33.0-37.0); MEAN CORPUSCULAR VOLUME 99.1 FL (81.0-99.0); MEAN PLATELET VOLUME 8.8 FL (7.4-10.4); PLATELET COUNT 213 /CUMM (130-400); RBC DISTRIBUTION WIDTH 12.8 % (11.5-14.5); RED BLOOD CELL CT 3.37 /CUMM (4.20-5.40); WHITE BLOOD CELL COUNT 3.8 /CUMM (4.8-10.8)
[2017-10-11 13:32] LABS: GRANULOCYTE % 52.6 % (42.2-75.2)
--- NOTE | 2017-10-11 14:19 | RADIOLOGY REPORT ---
EXAMINATION: XR CHEST, 2 VIEWS CLINICAL INFORMATION: Dyspnea. Effusion. Congestion. Rule out pneumonia. COMPARISON: 09/17/2017 TECHNIQUE: PA and lateral views of the chest were obtained. FINDINGS: Pacemaker overlies the left pectoral/axillary region. Leads terminate in the right atrium and right ventricle. Cardiac silhouette is enlarged. Mild pulmonary venous congestion. As seen on the lateral view, there are increased reticular opacities at the lung bases posteriorly. No pleural effusion. No pneumothorax. Right convex thoracic scoliotic curvature. Degenerative disc disease present in the thoracic spine. Bones are osteopenic. IMPRESSION: Cardiomegaly with pulmonary venous congestion. Reticular opacities in the lung bases are best seen on lateral view and likely correspond to mild interstitial edema. Atypical pneumonia is less likely. No focal consolidation.
--- NOTE | 2017-10-11 16:13 | CT SCAN REPORT ---
EXAMINATION: CT ANGIOGRAM OF THE CHEST WITH AND WITHOUT CONTRAST (CT PULMONARY ANGIOGRAM FOR PE) CLINICAL INFORMATION: Presumptive Dx: R/O PE Signs and Symptoms: CHEST PAIN, RECENT SX COMPARISON: Radiographs from the same date and CT dated 08/18/2017 TECHNIQUE: Prior to contrast administration, noncontrast localization images were obtained. Subsequently, multidetector volumetric imaging was performed from the thoracic inlet to below the diaphragms following the administration of 95 mL Optiray 320 intravenous contrast. No contrast reaction reported. Sagittal, coronal, and MIP oblique sagittal reformatted images were obtained on the CT workstation, uploaded to PACS, and reviewed. Total exam dose-length product 318 mGy-cm. FINDINGS: QUALITY OF STUDY/CONTRAST BOLUS: Satisfactory PULMONARY ARTERIES: Again seen are several filling defects within segmental and subsegmental pulmonary artery branches in each lobe of both lungs. At least 8 emboli are identified. The majority of these were present on the prior study from 08/18/2017. 2 emboli within the posterior basilar segment of the left lower lobe appear new as compared to prior (image 62/83 of series 203). The pulmonary outflow tract is dilated (3.6 cm in diameter). The left main pulmonary artery measures 2.4 cm. THORACIC AORTA: Incidental note is made of an aberrant right subclavian artery, coursing posterior to the esophagus. Ascending thoracic aorta is at the limits of normal in caliber, measuring 4 cm. Descending thoracic aorta is normal in caliber. LUNG: No suspicious pulmonary nodules are identified. There is mild ectasia of the peripheral pulmonary vasculature. A calcified granuloma is present within the right lower lobe inferiorly and medially. Central airways are clear. There is mild dependent atelectasis. No focal consolidation. PLEURA: No pleural effusion or pneumothorax. MEDIASTINUM: The left atrium is enlarged. Calcific effusions are present on the aortic valve. Small pericardial fluid is normal. No pericardial effusion. No evidence of septal bowing or right heart strain. CHEST WALL/AXILLA: No axillary or internal mammary lymphadenopathy. OSSEOUS STRUCTURES: Moderate multilevel degenerative disc disease. Kyphoscoliosis is present in the thoracic spine. No acute fractures. UPPER ABDOMEN: Multiple cysts are present at the upper pole left kidney. No reflux of contrast into the hepatic veins to suggest elevated right heart pressures. IMPRESSION: 1. Multiple pulmonary emboli are again seen in both lungs at the segmental and subsegmental levels. Two of these (within the left lower lobe) are new from the prior study, though could be subacute. 2. Cardiomegaly with left atrial enlargement. 3. Dilatation of the pulmonary outflow tract and pulmonary vessels diffusely, suggesting increased pulmonary pressures. VTE: positive
--- NOTE | 2017-10-11 18:55 | History & Physical ---
General Information and HPI MD Statement: I have seen and personally examined RENETTA TADEO and documented this H&P. The patient is a 87 year old F who presented with a patient stated chief complaint of [Chest pain]. Source of Information: patient, family, old records Exam Limitations: no limitations History of Present Illness: Mrs. 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 Patient recently admitted to [facility] (08/19 08/23) for syncopal episode pacemaker was interrogated which showed only paroxysmal atrial fibrillation for which she has a known history and is on anticoagulation. 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 She also was seen by her neurologist Dr. Kauffman on Tuesday for concern of TIA given frequent syncopal episode, however her neurologist ruled her out for TIA based on history and physical examination with no imaging repeated, she was also seen by her PCP on who recommended to obtain repeated CT head which is not obtained yet. Today in the afternoon she was complaining of chest pain at the site of pacemaker insertion to her visiting nurse who reported that to patient's daughter who brought her here to emergency department for more evaluation. Patient described the pain as pressure in nature localized to pacemaker area, comes and goes, lasts for 10 minutes, no radiation, no aggravating or relieving factor, it was not associated with lightheadedness, vision changes, shortness of breath, cough, headache, and there is no change in urinary or bowel habits. Patient is independent at her baseline but she is using a cane to walk for residual weakness on the left lower extremity. At ED her vitals was stable, troponin 2 was negative, CTA showed 2 new small pumonary emboli. Allergies/Medications Allergies: Coded Allergies: NO KNOWN ALLERGIES (UNKNOWN 08/18/17) Home Med list Apixaban (Eliquis) 2.5 MG TABLET 1 TAB PO BID afib (Reported) Calcium Carbonate/Vitamin D3 (Calcium 500 + D Tablet) (Unknown Strength) TABLET (Unknown Dose) PO DAILY SUPPLEMENT (Reported) Dorzolamide HCl/Timolol Maleat (Cosopt Eye Drops) 22.3 MG-6.8 MG/ML DROPS 1 GTT OU BID BOTH EYES (Reported) Latanoprost 0.005 % DROPS 1 GTT OU QPM BOTH EYES (Reported) Multivitamin-Min/Iron/FA/Vit K (Multi-Day Plus Minerals Tablet) 18 MG IRON-400 MCG-25 MCG TABLET 1 TAB PO DAILY SUPPLEMENT (Reported) Nifedipine (Nifedipine ER) 60 MG TAB.ER.24 1 TAB PO DAILY BP (Reported) Triamcinolone Acetonide 80 GM OINT...G. 1 KERA TOP BID PRN rash apply to affected area(s) Valsartan/Hydrochlorothiazide (Valsartan-Hctz 160-12.5 MG Tab) 160 MG-12.5 MG TABLET 1 TAB PO DAILY BP (Reported) Vitamin E Mixed (Vitamin E) (Unknown Strength) TABLET (Unknown Dose) PO DAILY SUPPLEMENT (Reported) Past History Travel History Traveled to [place] past 21 day No Medical History Neurological: CVA EENT: macular degeneration Cardiovascular: AFIB, hypertension, syncope Respiratory: pulmonary embolism Gastrointestinal: NONE Hepatic: NONE Renal: NONE Musculoskeletal: NONE Psychiatric: NONE Endocrine: NONE Blood Disorders: DVT Cancer(s): NONE 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 Ambulation: cane Review of Systems Review of Systems Constitutional: Reports: no symptoms. Cardiovascular: Reports: chest pain. Respiratory: Reports: no symptoms. GI: Reports: no symptoms. Genitourinary: Reports: no symptoms. All Other Systems: Reviewed and Negative Exam & Diagnostic Data Last 24 Hrs of Vital Signs/I&O Vital Signs Date Time Temp Pulse Resp B/P B/P Pulse O2 O2 Flow FiO2 Mean Ox Delivery Rate 10/11 1641 98.6 76 18 140/72 97 Room Air 10/11 1354 98.7 76 18 174/76 98 Room Air 10/11 1239 Room Air 10/11 1221 98.2 72 18 178/86 96 Intake & Output 10/11 1600 10/11 0800 10/11 0000 Intake Total 2000 Output Total Balance 2000 Intake, IV 2000 Patient 123 lb Weight Weight Reported by Patient Measurement Method Physical Exam General Appearance Alert, Oriented X3, Cooperative, No Acute Distress HEENT Atraumatic, PERRLA, EOMI Neck Supple, No JVD Cardiovascular Normal S1, Normal S2, No Murmurs Lungs Clear to Auscultation, Normal Air Movement Last 24 Hrs of Labs/Sam: Laboratory Tests 10/11/17 1649: Troponin I 0.04 10/11/17 1300: Anion Gap 16, Estimated GFR 36 L, BUN/Creatinine Ratio 20.7, Glucose 106 H, Calcium 10.1, Magnesium 1.9, Total Bilirubin 0.5, AST 26, ALT 31, Alkaline Phosphatase 53, Troponin I 0.02, Cki-F-Xflpggsxsqs Pept 717 H, Total Protein 8.6 H, Albumin 4.6, Globulin 4.0, Albumin/Globulin Ratio 1.2, D-Dimer High Sensitivty 984 H, CBC w Diff NO MAN DIFF REQ, RBC 3.37 L, MCV 99.1 H, MCH 32.9 H, MCHC 33.2, RDW 12.8, MPV 8.8, Gran % 52.6, Lymphocytes % 31.8, Monocytes % 13.2 H, Eosinophils % 1.6, Basophils % 0.8, Absolute Granulocytes 2.0, Absolute Lymphocytes 1.2, Absolute Monocytes 0.5, Absolute Eosinophils 0.1, Absolute Basophils 0 10/11/17 1242: Magnesium Cancelled, Rsw-S-Ybykuvoqzhu Pept Cancelled Diagnostic Data EKG Results Any sinus rhythm,left axis diffusion, right bundle branch block, first-degree AV block, no acute ST-T wave changes CXR Results IMPRESSION: Cardiomegaly with pulmonary venous congestion. Reticular opacities in the lung bases are best seen on lateral view and likely correspond to mild interstitial edema. Atypical pneumonia is less likely. No focal consolidation. Other Results Chest CTA: IMPRESSION: 1. Multiple pulmonary emboli are again seen in both lungs at the segmental and subsegmental levels. Two of these (within the left lower lobe) are new from the prior study, though could be subacute. 2. Cardiomegaly with left atrial enlargement. 3. Dilatation of the pulmonary outflow tract and pulmonary vessels diffusely, suggesting increased pulmonary pressures. VTE: positive Assessment/Plan Assessment: Mrs. 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 Admitted to r/o ACS and for 2 new small pulmonary emboli. Assessment and plan: 1. Chest pain most likely related to pacemaker placement 2. Status post pacemaker placement 3. Hypokalemia 4. History of Afib on eliquis 5. CKD stage 3 - stable 6. Essential hypertension - Admitt the patient to telemetry - We'll start the patient on heparin drip will hold Eliquis for now -Serial troponin and EKG to r/o ACS - Replete K, check Mag and replete as needed - Cardio consult -Echo -Guiac all stool - Will resume nifedipine, valsartan-hctz from AM DVT ppx heparin. Full code. As Ranked By This Provider Problem List: 1. Chest pain Qualifiers Chest pain type: unspecified Qualified Code: R07.9 - Chest pain, unspecified Core Measures/Misc (02/13) Acute Coronary Syndrome ACS Diagnosis: No Congestive Heart Failure Congestive Heart Failure Diagnosis No Cerebrovascular Accident CVA/TIA Diagnosis: No VTE (View Protocol) VTE Risk Factors Acute Medical Illness No Mechanical VTE Prophylaxis d/t N/A MechProphylax Ordered No VTE Pharm Prophylaxis d/t NA PharmProphylax ordered Sepsis (View protocol) Sepsis Present: No
--- NOTE | 2017-10-11 19:58 | PN- Att Addend ---
Attending Addendum Attending Brief Note 87F PMH HTN, PE in 2015, X2 stroke in 2015 & 2016, recent diagnosed Afib, currently on Eliquis, first-degree heart block and RBBB s/p MRI compatible dual- chamber pacemaker placement on 08/22/17 presenting with chest pain on breathing and SOB, found to have acute worsening of pulmonary embolism failing Eliquis. Hemodynamically stable, otherwise asymptomatic, benign exam, no EKG changes. Plan - ADmit to telemetry - Discontinue Eliquis - Heparin drip - Vascular consult - Continue home meds
[2017-10-11 20:44] VITALS: BP 120/78
--- NOTE | 2017-10-11 22:33 | Event Note ---
Event Note Event Note: Dr Park (Vascular Surgeon) called in at 10:28 pm and reviewed the case over phone. Since her vitals are stable now, she is on IV Heparin already, and this does not appear to be a vascular surgical emergency/requiring immediate intervention. He suggested to keep the patient in IV Heparin. Also, he said the patient was on Eliquis 2.5 mg BID at home which is not the ideal prevention dose for PE, so will consider restarting her on Eliquis 5 mg BID later, after reviewing her details (age, renal creatinine clearance...). Vascular surgeon will follow up with the patient tomorrow in the morning.
[2017-10-12 03:23] LABS: PTT 99 SEC (25-37)
[2017-10-12 06:47] VITALS: BP 120/74
--- NOTE | 2017-10-12 07:17 | PN- Housestaff ---
Yaron CHAMPION,Pj 10/12/1717: Subjective Follow-up For: PE Tele-Events Since Last Visit: Paced HR 50s60s Subjective: Patient was seen and examined at bedside. She was resting comfortably. She had no acute events overnight. She reports feeling significantly improved compared to yesterday. She is able to ambulate to the bathroom with assistance from the nurse, and has done so multiple times since being admitted, she reports that only on a few of those occasions that she spends any dyspnea and pleuritic chest pain, and when she did experience this it was significantly less than prior to presentation. She currently has no other complaints and denies any dyspnea or chest pain at rest, cough, lightheadedness, nausea, vomiting, fever, chills. Review of Systems Constitutional: Reports: no symptoms. Objective Last 24 Hrs of Vital Signs/I&O Vital Signs Date Time Temp Pulse Resp B/P B/P Pulse O2 O2 Flow FiO2 Mean Ox Delivery Rate 10/12 0647 97.8 60 20 120/74 99 Room Air 10/11 2044 98.0 78 16 120/78 100 Room Air 10/11 1641 98.6 76 18 140/72 97 Room Air 10/11 1354 98.7 76 18 174/76 98 Room Air 10/11 1239 Room Air 10/11 1221 98.2 72 18 178/86 96 Intake & Output 10/12 0800 10/12 0000 10/11 1600 Intake Total 354 691 1646 Output Total 300 Balance -162 867 1891 Intake, IV 180 2000 Intake, Oral 0 200 Number 0 1 Bowel Movements Output, Urine 300 Patient 119 lb 132 lb 123 lb Weight Weight Bed scale Reported by Patient Measurement Method Physical Exam General Appearance: Alert, Oriented X3, Cooperative, No Acute Distress Skin Temp/Moisture Exam: Warm/Dry Cardiovascular: Regular Rate, Normal S1, Normal S2 Lungs: Clear to Auscultation, Normal Air Movement Abdomen: Normal Bowel Sounds, Soft, No Tenderness Current Medications: Current Medications Sig/Sarah Start time Last Medication Dose Route Stop Time Status Admin Heparin Sodium 25,000 UNIT Q24H 10/12 1999 AC 10/11 (Porcine) IV 2151 Sodium Chloride 500 ML Hydrochlorothiazide 12.5 MG DAILY 10/12 899 AC PO Losartan Potassium 50 MG DAILY 10/12 899 AC PO Nifedipine 60 MG DAILY 10/12 899 AC PO Potassium Chloride 0 .STK-MED ONE 10/11 1916 DC PO Potassium Chloride 60 MEQ ONCE ONE 10/11 1845 DC 10/11 PO 10/11 1845 191 Sodium Chloride 500 ML BOLUS ONE 10/11 1430 DC 10/11 IV 10/11 1529 1450 Vitamin E 400 IU DAILY 10/12 0900 AC PO Last 24 Hrs of Lab/Sam Results Last 24 Hrs of Labs/Mics: Laboratory Tests 10/12/17 0707: Anion Gap 11, Estimated GFR 47 L, BUN/Creatinine Ratio 23.6, PT 14.5 H, INR 1.33 H, CBC w Diff NO MAN DIFF REQ, RBC 3.00 L, MCV 98.2, MCH 32.4 H, MCHC 33.0, RDW 12.9, MPV 8.7, Gran % 44.3, Lymphocytes % 38.8, Monocytes % 13.3 H, Eosinophils % 2.3, Basophils % 1.3, Absolute Granulocytes 1.3 L, Absolute Lymphocytes 1.2, Absolute Monocytes 0.4, Absolute Eosinophils 0.1, Absolute Basophils 0 10/12/17 0255: APTT 99 H 10/11/17 2310: Troponin I 0.03 10/11/17 1649: Troponin I 0.04 Orders Radiology Findings: Respiratory variation, normal compression and augmented flow are noted throughout the lower extremities. The visualized common femoral vein, superficial femoral vein, profunda femoral vein, popliteal vein and midcalf peroneal and posterior tibial venous segments show no evidence of deep venous thrombosis. Bilaterally, the visualized midcalf peroneal and posterior tibial venous segments demonstrate normal flow suggesting patency. Bilaterally, the visualized external iliac veins demonstrate normal flow and appear patent. Left Lewis's cyst measuring 3.5 x 1 x 2.2 cm. IMPRESSION: No evidence of deep venous thrombosis involving the lower extremities. Left Lewis's cyst measuring 3.5 cm. Assessment/Plan Assessment: Patient is an 86-year-old female with a PMH significant for DVT and PE in 2014, CVA, A. fib, syncopal episodes and sinus bradycardia status post pacemaker placement in July of 2017, stage III CKD, HTN, who presented to [facility] ED complaining of left-sided chest pain and dyspnea. #PE On presentation d-dimer was elevated to 94 CTA shows multiple PEs, at least 2 of which appear to be new compared with previous study. She was on Eliquis 2.5 mg twice daily as an outpatient. Bilateral lower extremity Doppler ultrasound showed no evidence of DVT. -Patient was on IV heparin, we will transition to Eliquis 10 mg twice daily for 1 week, then decrease to 5 mg twice daily. -Cardiology recommendations appreciated -Vascular surgery also consult placed, will follow up recommendations. -Follow-up echocardiogram #Leukopenia This is baseline based on review of old records #LINDA on CKD LINDA appears to have resolved, renal function is back to #Hypokalemia Resolved #Chronic medical problems Continue current medical regimen Diet: Heart healthy DVT prophylaxis: IV heparin/starting Eliquis, Alps CODE STATUS: Full code Problem List: 1. Pulmonary emboli Pain Ratin Pain Location: none Pain Goal: Remain pain free Pain Plan: pain pathway Tomorrow's Labs & Rationales: cbc, bep Lam CHAMPION,Bill 10/12/17 1044: Attending MD Review Statement Attending Statement Attending MD Statement: examined this patient, discuss w/resident/PA/BANQUET LINE COOK, agreed w/resident/PA/BANQUET LINE COOK, reviewed EMR data (avail) Attending Assessment/Plan: 87F PMH HTN, PE in 2015, ischemic CVA in 2015 & 2016, paroxysmal atrial fibrillation on Eliquis, first-degree heart block and RBBB s/p MRI compatible dual-chamber pacemaker placement on 08/22/17 presenting with chest pain on breathing and SOB, found to have acute worsening of pulmonary embolism failing Eliquis. Hemodynamically stable, otherwise asymptomatic, benign exam, no EKG changes. Patient feels better today. Able to ambulate without chest pain. Per family she is deconditioned of late. 1. Acute bilateral pulmonary embolism without cor pulmonale 2. Pleuritic chest pain Plan - Continue on telemetry - Vascular and cardiology consults - Continue heparin drip - Start Coumadin today - Echocardiogram - Continue home medications - PT evaluation for deconditioning
[2017-10-12 08:11] LABS: ABSOLUTE BASOPHIL COUNT 0 /CUMM (0.0-0.2); ABSOLUTE EOSINOPHIL COUNT 0.1 /CUMM (0.0-0.7); ABSOLUTE GRANULOCYTE CT 1.3 /CUMM (1.4-6.5); ABSOLUTE LYMPH COUNT 1.2 /CUMM (1.2-3.4); ABSOLUTE MONOCYTE COUNT 0.4 /CUMM (0.10-0.60); BASOPHIL % 1.3 % (0.0-2.0); EOSINOPHIL % 2.3 % (0-5); GRANULOCYTE % 44.3 % (42.2-75.2); HEMATOCRIT 29.4 % (37-47); MEAN CORPUSCULAR HGB 32.4 PG (27.0-31.0); MEAN CORPUSCULAR VOLUME 98.2 FL (81.0-99.0); MEAN PLATELET VOLUME 8.7 FL (7.4-10.4); RBC DISTRIBUTION WIDTH 12.9 % (11.5-14.5)
[2017-10-12 08:20] LABS: PT 14.5 SEC (9.4-12.5)
[2017-10-12 10:00] LABS: PLATELET COUNT 167 /CUMM (130-400)
--- NOTE | 2017-10-12 11:49 | Cons- Cardiology ---
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 She does have a history of intermittent syncope which led to the placement of her permanent pacemaker but did have syncope following the pacemaker placement. She denies orthopnea or paroxysmal nocturnal dyspnea. She is compliant with her medications and denied any bleeding. Denies subjective fever or productive cough. Allergies/Medications Allergies: Coded Allergies: NO KNOWN ALLERGIES (UNKNOWN 08/18/17) Home Med List: Apixaban (Eliquis) 2.5 MG TABLET 1 TAB PO BID afib (Reported) Calcium Carbonate/Vitamin D3 (Calcium 500 + D Tablet) (Unknown Strength) TABLET (Unknown Dose) PO DAILY SUPPLEMENT (Reported) Dorzolamide HCl/Timolol Maleat (Cosopt Eye Drops) 22.3 MG-6.8 MG/ML DROPS 1 GTT OU BID BOTH EYES (Reported) Latanoprost 0.005 % DROPS 1 GTT OU QPM BOTH EYES (Reported) Multivitamin-Min/Iron/FA/Vit K (Multi-Day Plus Minerals Tablet) 18 MG IRON-400 MCG-25 MCG TABLET 1 TAB PO DAILY SUPPLEMENT (Reported) Nifedipine (Nifedipine ER) 60 MG TAB.ER.24 1 TAB PO DAILY BP (Reported) Triamcinolone Acetonide 80 GM OINT...G. 1 KERA TOP BID PRN rash apply to affected area(s) Valsartan/Hydrochlorothiazide (Valsartan-Hctz 160-12.5 MG Tab) 160 MG-12.5 MG TABLET 1 TAB PO DAILY BP (Reported) Vitamin E Mixed (Vitamin E) (Unknown Strength) TABLET (Unknown Dose) PO DAILY SUPPLEMENT (Reported) Current Medications: Current Medications Sig/Sarah Start time Last Medication Dose Route Stop Time Status Admin Heparin Sodium 25,000 UNIT Q24H 10/12 1999 AC 10/11 (Porcine) IV 215 Sodium Chloride 500 ML Hydrochlorothiazide 12.5 MG DAILY 10/12 899 AC 10/12 PO 0956 Losartan Potassium 50 MG DAILY 10/12 899 AC 10/12 PO 0956 Nifedipine 60 MG DAILY 10/12 899 AC 10/12 PO 0956 Potassium Chloride 0 .STK-MED ONE 10/11 1917 DC PO Potassium Chloride 60 MEQ ONCE ONE 10/11 1845 DC 10/11 PO 10/11 184 1912 Sodium Chloride 500 ML BOLUS ONE 10/11 1430 DC 10/11 IV 10/11 1529 1450 Vitamin E 400 IU DAILY 10/12 899 AC 10/12 PO 0956 Review of Systems Review of Systems: Review of systems as per HPI. The remainder of a 10 point review of systems was reviewed and was otherwise negative. Past History Travel History Traveled to [place] past 21 day No Medical History Neurological: CVA EENT: macular degeneration Cardiovascular: AFIB, hypertension, syncope Respiratory: pulmonary embolism Gastrointestinal: NONE Hepatic: NONE Renal: NONE Musculoskeletal: NONE Psychiatric: NONE Endocrine: NONE Blood Disorders: DVT Cancer(s): NONE ASSISTANT CLINICAL DIRECTOR/Reproductive: NONE Surgical History Surgical History: hysterectomy Family History Relations & Conditions If Any: MOTHER FHx: hypertension Psychosocial History Where Do You Live? Home Smoking Status: Never Smoked ETOH Use: denies use Functional Ability ADLs Independent: dressing, eating, toileting, bathing. Ambulation: cane Exam & Diagnostic Data Vital Signs and I&O Vital Signs Date Time Temp Pulse Resp B/P B/P Pulse O2 O2 Flow FiO2 Mean Ox Delivery Rate 10/12 1008 Room Air Room Air 10/12 0956 97.8 60 20 120/74 10/12 0956 97.8 60 20 120/74 10/12 0647 97.8 60 20 120/74 99 Room Air 10/11 2044 98.0 78 16 120/78 100 Room Air 10/11 1641 98.6 76 18 140/72 97 Room Air 10/11 1354 98.7 76 18 174/76 98 Room Air 10/11 1239 Room Air 10/11 1221 98.2 72 18 178/86 96 Intake & Output 10/12 1600 10/12 0800 10/12 0000 10/11 1600 10/11 0800 10/11 0000 Intake Total 165 719 5729 Output Total 300 Balance -087 296 8702 Intake, IV 180 1999 Intake, Oral 0 200 Number 0 1 Bowel Movements Output, Urine 300 Patient 119 lb 132 lb 123 lb Weight Weight Bed scale Reported by Patient Measurement Method Physical Exam: General: no apparent distress. Alert. Eyes: No obvious scleral icterus. HEENT: No jugular venous distention or abnormal jugular venous pulsations. Cardiovascular: Normal intensity S1/S2. Pacemaker noted. Respiratory: Lungs clear to auscultation bilaterally. Abdomen: Soft, nontender with no guarding or rebound tenderness. Musculoskeletal: No clubbing or cyanosis noted Skin: warm Neurologic: No gross focal deficits noted. Lymph: No gross lymphadenopathy. Labs/Sam Results: Laboratory Tests 10/12 10/12 10/11 10/11 0707 0255 2310 1649 Chemistry Sodium (137 - 145 mmol/L) 144 Potassium (3.5 - 5.1 mmol/L) 4.7 Chloride (98 - 107 mmol/L) 106 Carbon Dioxide (22 - 30 mmol/L) 27 Anion Gap (5 - 16) 11 BUN (7 - 17 mg/dL) 26 H Creatinine (0.5 - 1.0 mg/dL) 1.1 H Estimated GFR (>60 ml/min) 47 L BUN/Creatinine Ratio (7 - 25 %) 23.6 Troponin I (< 0.11 ng/ml) 0.03 0.04 Coagulation PT (9.4 - 12.5 SEC) 14.5 H INR (0.90 - 1.19) 1.33 H APTT (25 - 37 SEC) 99 H Hematology CBC w Diff NO MAN DIFF REQ WBC (4.8 - 10.8 /CUMM) 3.0 L RBC (4.20 - 5.40 /CUMM) 3.00 L Hgb (12.0 - 16.0 G/DL) 9.7 L Hct (37 - 47 %) 29.4 L MCV (81.0 - 99.0 FL) 98.2 MCH (27.0 - 31.0 PG) 32.4 H MCHC (33.0 - 37.0 G/DL) 33.0 RDW (11.5 - 14.5 %) 12.9 Plt Count (130 - 400 /CUMM) 167 MPV (7.4 - 10.4 FL) 8.7 Gran % (42.2 - 75.2 %) 44.3 Lymphocytes % (20.5 - 51.1 %) 38.8 Monocytes % (1.7 - 9.3 %) 13.3 H Eosinophils % (0 - 5 %) 2.3 Basophils % (0.0 - 2.0 %) 1.3 Absolute Granulocytes (1.4 - 6.5 /CUMM) 1.3 L Absolute Lymphocytes (1.2 - 3.4 /CUMM) 1.2 Absolute Monocytes (0.10 - 0.60 /CUMM) 0.4 Absolute Eosinophils (0.0 - 0.7 /CUMM) 0.1 Absolute Basophils (0.0 - 0.2 /CUMM) 0 10/11 10/11 1300 1242 Chemistry Sodium (137 - 145 mmol/L) 146 H Potassium (3.5 - 5.1 mmol/L) 3.7 Chloride (98 - 107 mmol/L) 102 Carbon Dioxide (22 - 30 mmol/L) 28 Anion Gap (5 - 16) 16 BUN (7 - 17 mg/dL) 29 H Creatinine (0.5 - 1.0 mg/dL) 1.4 H Estimated GFR (>60 ml/min) 36 L BUN/Creatinine Ratio (7 - 25 %) 20.7 Glucose (65 - 99 mg/dL) 106 H Calcium (8.4 - 10.2 mg/dL) 10.1 Magnesium (1.6 - 2.3 mg/dL) 1.9 Cancelled Total Bilirubin (0.2 - 1.3 mg/dL) 0.5 AST (14 - 36 U/L) 26 ALT (9 - 52 U/L) 31 Alkaline Phosphatase (<127 U/L) 53 Troponin I (< 0.11 ng/ml) 0.02 Ppj-B-Kadtztqbadg Pept (<125 pg/mL) 717 H Cancelled Total Protein (6.3 - 8.2 g/dL) 8.6 H Albumin (3.5 - 5.0 g/dL) 4.6 Globulin (1.9 - 4.2 gm/dL) 4.0 Albumin/Globulin Ratio (1.1 - 2.2 %) 1.2 Coagulation D-Dimer High Sensitivty (0 - 243 ng/ml) 984 H Hematology CBC w Diff NO MAN DIFF REQ WBC (4.8 - 10.8 /CUMM) 3.8 L RBC (4.20 - 5.40 /CUMM) 3.37 L Hgb (12.0 - 16.0 G/DL) 11.1 L Hct (37 - 47 %) 33.4 L MCV (81.0 - 99.0 FL) 99.1 H MCH (27.0 - 31.0 PG) 32.9 H MCHC (33.0 - 37.0 G/DL) 33.2 RDW (11.5 - 14.5 %) 12.8 Plt Count (130 - 400 /CUMM) 213 MPV (7.4 - 10.4 FL) 8.8 Gran % (42.2 - 75.2 %) 52.6 Lymphocytes % (20.5 - 51.1 %) 31.8 Monocytes % (1.7 - 9.3 %) 13.2 H Eosinophils % (0 - 5 %) 1.6 Basophils % (0.0 - 2.0 %) 0.8 Absolute Granulocytes (1.4 - 6.5 /CUMM) 2.0 Absolute Lymphocytes (1.2 - 3.4 /CUMM) 1.2 Absolute Monocytes (0.10 - 0.60 /CUMM) 0.5 Absolute Eosinophils (0.0 - 0.7 /CUMM) 0.1 Absolute Basophils (0.0 - 0.2 /CUMM) 0 Diagnostic Data EKG Results Tracing was personally reviewed and shows sinus rhythm with first-degree AV block and right bundle branch block CXR Results Cardiomegaly with pulmonary venous congestion. Reticular opacities in the lung bases are best seen on lateral view and likely correspond to mild interstitial edema. Atypical pneumonia is less likely. No focal consolidation. Other Results Telemetry tracings were personally reviewed and shows a sinus rhythm with occasional pacing CTA 1. Multiple pulmonary emboli are again seen in both lungs at the segmental and subsegmental levels. Two of these (within the left lower lobe) are new from the prior study, though could be subacute. 2. Cardiomegaly with left atrial enlargement. 3. Dilatation of the pulmonary outflow tract and pulmonary vessels diffusely, suggesting increased pulmonary pressures. Assessment/Plan Assessment/Plan 1. 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 Paroxysmal atrial fibrillation on Eliquis 4. Remote CVA 5. Hypertension 6. History of mild aortic dilatation The patient is not short of breath and is not hypoxic on room air. I am not entirely convinced that the pulmonary emboli on this recent CAT scan are definitively new pulmonary emboli but it is difficult for me to completely exclude that possibility. I would repeat an echocardiogram for reevaluation of the right ventricle. I had an extensive discussion with the patient about possible options for anticoagulation and they would prefer to use Eliquis with dose adjustment; recommend Eliquis 10 mg p.o. twice daily for 7 days and then transition to 5 mg p.o. twice daily. Recommend repeat lower extremity ultrasound. I do not think she meets indications for IVC filter at this time. Francis White MD [facility] Consult Acknowledgment - Thank you for your consult request.
[2017-10-12 14:39] VITALS: BP 122/72
--- NOTE | 2017-10-12 15:55 | ULTRASOUND REPORT ---
EXAMINATION: US TRIPLEX OF LOWER EXTREMITIES, BILATERAL CLINICAL INFORMATION: Pulmonary embolus on CT. Rule out DVT. COMPARISON: None. TECHNIQUE: Color-flow triplex imaging with spectral analysis and compression Doppler were performed on the lower extremities. FINDINGS: Respiratory variation, normal compression and augmented flow are noted throughout the lower extremities. The visualized common femoral vein, superficial femoral vein, profunda femoral vein, popliteal vein and midcalf peroneal and posterior tibial venous segments show no evidence of deep venous thrombosis. Bilaterally, the visualized midcalf peroneal and posterior tibial venous segments demonstrate normal flow suggesting patency. Bilaterally, the visualized external iliac veins demonstrate normal flow and appear patent. Left Lewis's cyst measuring 3.5 x 1 x 2.2 cm. IMPRESSION: No evidence of deep venous thrombosis involving the lower extremities. Left Lewis's cyst measuring 3.5 cm.
[2017-10-12 17:09] LABS: PTT > 120 SEC (25-37)
--- NOTE | 2017-10-12 18:38 | ECHOCARDIOGRAM REPORT ---
RENETTA MCDONALD Age: 87 : 1930 Gender: F Exam Date: 10/12/2017 16:49 Exam Location: [address] Ht (in): 61 Wt (lb): 132 BSA: 1.62 BP: 120 / 74 Ordering Physician: Referring Physician: Cullen White M.D. Technologist: Carmelita Ballard RDCS Room Number: [id number] Indications: CHEST PAIN Rhythm: Technical Quality: fair FINDINGS Left Ventricle Normal size left ventricle. Left ventricular wall thickness moderately increased. Normal left ventricular ejection fraction estimated at 60-65%. Right Ventricle Normal right ventricular size and function. Catheter/pacemaker wire in the right ventricular cavity. Right Atrium Mild right atrial dilatation. Left Atrium Mild left atrial dilatation. Mitral Valve Moderate mitral annular calcification. Mild mitral regurgitation. Aortic Valve Diffuse thickening (sclerosis) of the aortic valve cusps without reduced excursion. Mild aortic regurgitation. Tricuspid Valve Tricuspid valve is normal in structure and function. Mild tricuspid regurgitation. Right ventricular systolic pressure estimated to be at upper limits of normal at 30 mmHg. Pulmonic Valve Pulmonic valve not well visualized, grossly normal. Moderate pulmonic regurgitation. Pericardium No pericardial effusion. Great Vessels Normal size aortic root. CONCLUSIONS Normal left ventricular systolic function with moderate concentric hypertrophy.Mild biatrial enlargement. No significant valvular abnormalities noted. Osmany Peters M.D. (Electronically Signed) Final Date: 12 Oct 2017 18:37 MEASUREMENTS (Male / Female) Normal Values 2D ECHO LV Diastolic Diameter PLAX 3.6 cm 4.2 - 5.9 / 3.9 - 5.3 cm LV Systolic Diameter PLAX 2.4 cm 2.1 - 4.0 cm LV Fractional Shortening PLAX 33.3 % 25 - 46 % LV Ejection Fraction 2D Teich 63.0 % IVS Diastolic Thickness 1.6 cm LVPW Diastolic Thickness 1.6 cm LV Relative Wall Thickness 0.9 RV Internal Dim ED PLAX 2.8 cm 1.9 - 3.8 cm LVOT Diameter 1.9 cm Aortic Root Diameter 2.9 cm LA Systolic Diameter LX 3.6 cm 3.0 - 4.0 / 2.7 - 3.8 cm LA Volume 50.0 cm 18 - 58 / 22 - 52 cm Ascending Aorta Diameter 3.6 cm DOPPLER AV Peak Velocity 182.0 cm/s AV Peak Gradient 13.2 mmHg AV Mean Velocity 120.0 cm/s AV Mean Gradient 7.0 mmHg AV Velocity Time Integral 32.8 cm LVOT Peak Velocity 121.0 cm/s LVOT Peak Gradient 5.9 mmHg LVOT Mean Velocity 71.8 cm/s LVOT Mean Gradient 3.0 mmHg LVOT Velocity Time Integral 24.6 cm LVOT Stroke Volume 69.7 cm AV Area Cont Eq vti 2.1 cm AV Area Cont Eq pk 1.9 cm MV Peak Velocity 85.7 cm/s MV Peak Gradient 2.9 mmHg MV Mean Velocity 64.8 cm/s MV Mean Gradient 2.0 mmHg Mitral E Point Velocity 71.6 cm/s Mitral A Point Velocity 77.5 cm/s Mitral E to A Ratio 0.9 MV PHT Velocity 89.3 cm/s MV Deceleration [place] 439.0 cm/s MV Pressure Half Time 61.0 ms MV Area PHT 3.6 cm MV Deceleration Time 106.0 ms TR Peak Velocity 246.0 cm/s TR Peak Gradient 24.2 mmHg Right Atrial Pressure 5.0 mmHg Pulmonary Artery Systolic Pressu 29.2 mmHg Right Ventricular Systolic Press 29.2 mmHg PV Peak Velocity 124.0 cm/s PV Peak Gradient 6.2 mmHg PV Mean Velocity 73.4 cm/s PV Mean Gradient 3.0 mmHg PV Velocity Time Integral 23.6 cm LV E' Lateral Velocity 7.8 cm/s Mitral E to LV E' Lateral Ratio 9.2 LV E' Septal Velocity 3.0 cm/s Mitral E to LV E' Septal Ratio 23.7
--- NOTE | 2017-10-12 19:11 | Cons- Vascular Surgery ---
General Information and HPI Consulting Request Date of Consult: 10/12/17 Requested By: Timbo Fritz MD History of Present Illness: 87-year-old lady with multiple medical issues and history of PE and A. fib. She has been maintained on low-dose Eliquis. She presented with chest pain. Workup included CT of the chest which showed 2 small subsegmental areas of PE. On today's lower extremity venous duplex, there was no evidence of DVT. Vascular surgery was consulted regarding possibility of the need for IVC filter and anticoagulation. She is currently on heparin drip. Allergies/Medications Allergies: Coded Allergies: NO KNOWN ALLERGIES (UNKNOWN 08/18/17) Home Med List: Apixaban (Eliquis) 2.5 MG TABLET 1 TAB PO BID afib (Reported) Calcium Carbonate/Vitamin D3 (Calcium 500 + D Tablet) (Unknown Strength) TABLET (Unknown Dose) PO DAILY SUPPLEMENT (Reported) Dorzolamide HCl/Timolol Maleat (Cosopt Eye Drops) 22.3 MG-6.8 MG/ML DROPS 1 GTT OU BID BOTH EYES (Reported) Latanoprost 0.005 % DROPS 1 GTT OU QPM BOTH EYES (Reported) Multivitamin-Min/Iron/FA/Vit K (Multi-Day Plus Minerals Tablet) 18 MG IRON-400 MCG-25 MCG TABLET 1 TAB PO DAILY SUPPLEMENT (Reported) Nifedipine (Nifedipine ER) 60 MG TAB.ER.24 1 TAB PO DAILY BP (Reported) Triamcinolone Acetonide 80 GM OINT...G. 1 KERA TOP BID PRN rash apply to affected area(s) Valsartan/Hydrochlorothiazide (Valsartan-Hctz 160-12.5 MG Tab) 160 MG-12.5 MG TABLET 1 TAB PO DAILY BP (Reported) Vitamin E Mixed (Vitamin E) (Unknown Strength) TABLET (Unknown Dose) PO DAILY SUPPLEMENT (Reported) Past History Medical History Neurological: CVA EENT: macular degeneration Cardiovascular: AFIB, hypertension, syncope Respiratory: pulmonary embolism Gastrointestinal: NONE Hepatic: NONE Renal: NONE Musculoskeletal: NONE Psychiatric: NONE Endocrine: NONE Blood Disorders: DVT Cancer(s): NONE TABULAR TYPIST/Reproductive: NONE Surgical History Pertinent Surgical History: hysterectomy Family History Relations & Conditions If Any: MOTHER FHx: hypertension Psychosocial History Where Do You Live? Home Smoking Status: Never Smoked ETOH Use: denies use Functional Ability ADLs Independent: dressing, eating, toileting, bathing. Ambulation: cane Review of Systems Review of Systems: Patient denies headache, dizziness, cough, palpitation, diarrhea or constipation Exam & Diagnostic Data Vital Signs and I&O Vital Signs Date Time Temp Pulse Resp B/P B/P Pulse O2 O2 Flow FiO2 Mean Ox Delivery Rate 10/12 1439 98.8 90 20 122/72 98 Room Air 10/12 1008 Room Air Room Air 10/12 0956 97.8 60 20 120/74 10/12 0956 97.8 60 20 120/74 /16 0800 98 Room Air 10/12 0647 97.8 60 20 120/74 99 Room Air 10/11 2044 98.0 78 16 120/78 100 Room Air Intake & Output 10/12 1600 10/12 0800 10/12 0000 10/11 1600 10/11 0800 10/11 0000 Intake Total 847.3 521 947 3592 Output Total 300 Balance 847.3 -663 313 7051 Intake, IV 167.3 180 2000 Intake, Oral 680 0 200 Number 0 1 Bowel Movements Output, Urine 300 Patient 119 lb 132 lb 123 lb Weight Weight Bed scale Reported by Patient Measurement Method Physical Exam: Patient is alert and oriented 3. Lungs: Clear to auscultation bilaterally. The patient is breathing comfortably on room air Heart: S1 plus S2 Abdomen: Soft, nontender nondistended Extremities: Well-perfused. No swelling Assessment/Plan Assessment/Plan 87-year-old lady with history of DVT/PE and A. fib and other medical issues on low-dose Eliquis presented with chest pain and was found to have chronic PE as well as 2 small areas of new PE by CAT scan. Patient is currently comfortably breathing on room air. Venous duplex of the lower semi-showed no evidence of acute DVT. The patient has not had any recent bleeding or head trauma. She hasn't had any recent surgeries. Therefore, for anticoagulation is not contraindicated. Recommendation would be to fully anticoagulate her. Because of her prior history of DVT and PE, she will be at higher risk of recurrence. She should be fully anticoagulated. There is no indication for an IVC filter at the moment. Thank you for asking me to be involved in the care of this patient. Consult Acknowledgment - Thank you for your consult request. Attending MD Review Statement Attending Statement Attending MD Statement: examined this patient, discuss w/resident/PA/FURNACE CHECKER
[2017-10-12 22:00] VITALS: BP 98/60
[2017-10-12 22:10] VITALS: BP 88/56
[2017-10-12 22:16] VITALS: BP 112/62
[2017-10-13 06:30] VITALS: BP 106/62
--- NOTE | 2017-10-13 07:08 | PN- Housestaff ---
Yaron CHAMPION,Pj 10/13/17 0708: Subjective Follow-up For: PE Tele-Events Since Last Visit: PatientSinus rhythm with pacing at times, HR 60s90s Patient had short run of quadrigeminy Subjective: Patient was seen and examined at bedside. She was resting comfortably. She had no acute events overnight. She is eager to be discharged, and states that she has not had no recurrence of shortness of breath or chest pain since yesterday. She has been ambulating to the restroom with no issues. She currently has no complaints and denies any palpitations, nausea, vomiting, fever, chills, chest discomfort. Review of Systems Constitutional: Reports: see HPI. Objective Last 24 Hrs of Vital Signs/I&O Vital Signs Date Time Temp Pulse Resp B/P B/P Pulse O2 O2 Flow FiO2 Mean Ox Delivery Rate 10/13 0630 98.1 80 16 106/62 98 10/12 2216 112/62 10/12 2210 98.1 77 17 88/56 97 10/12 2200 98/60 10/12 1439 98.8 90 20 122/72 98 Room Air 10/12 1008 Room Air Room Air 10/12 0956 97.8 60 20 120/74 10/12 0956 97.8 60 20 120/74 10/12 0800 98 Room Air Intake & Output 10/13 0800 10/13 0000 10/12 1600 Intake Total 220 220 847.3 Output Total Balance 220 220 847.3 Intake, IV 167.3 Intake, Oral 220 220 680 Patient 123 lb Weight Physical Exam General Appearance: Alert, Oriented X3, Cooperative Cardiovascular: Regular Rate, Normal S1, Normal S2, pacemaker in the L chest Lungs: Clear to Auscultation, Normal Air Movement Abdomen: Normal Bowel Sounds, Soft, No Tenderness Neurological: Normal Speech, Normal Tone, Sensation Intact Extremities: No Clubbing, No Cyanosis, No Edema Current Medications: Current Medications Sig/Sarah Start time Last Medication Dose Route Stop Time Status Admin Apixaban 10 MG BID 10/12 2100 AC 10/12 PO 10/19 0901 2216 Heparin Sodium 25,000 UNIT Q24H 10/12 1999 DC 10/11 (Porcine) IV 10/12 2300 2151 Sodium Chloride 500 ML Hydrochlorothiazide 12.5 MG DAILY 10/12 09 AC 10/12 PO 0956 Latanoprost 1 GTT AT BEDTIME 10/12 2100 AC 10/12 OPH 2217 Losartan Potassium 50 MG DAILY 10/12 899 AC 10/12 PO 0956 Nifedipine 60 MG DAILY 10/12 899 AC 10/12 PO 0956 Vitamin E 400 IU DAILY 10/12 899 AC 10/12 PO 09 Last 24 Hrs of Lab/Sam Results Last 24 Hrs of Labs/Mics: Laboratory Tests 10/13/17 0654: Anion Gap 9, Estimated GFR 43 L, BUN/Creatinine Ratio 25.0, CBC w Diff NO MAN DIFF REQ, RBC 3.02 L, MCV 98.5, MCH 32.3 H, MCHC 32.8 L, RDW 13.1, MPV 8.8, Gran % 43.2, Lymphocytes % 39.6, Monocytes % 12.8 H, Eosinophils % 3.6, Basophils % 0.8, Absolute Granulocytes 1.3 L, Absolute Lymphocytes 1.1 L, Absolute Monocytes 0.4, Absolute Eosinophils 0.1, Absolute Basophils 0 10/12/17 1615: APTT > 120 *H Assessment/Plan Assessment: Patient is an 86-year-old female with a PMH significant for DVT and PE in 2014, CVA, A. fib, syncopal episodes and sinus bradycardia status post pacemaker placement in July of 2017, stage III CKD, HTN, who presented to [facility] ED complaining of left-sided chest pain and dyspnea. #PE On presentation d-dimer was elevated to 984 CTA shows multiple PEs, at least 2 of which appear to be new compared with previous study. She was on Eliquis 2.5 mg twice daily as an outpatient. Bilateral lower extremity Doppler ultrasound showed no evidence of DVT. -Patient is stable for discharge home today -We will continue Eliquis at 10 mg twice daily for 6 more days before transitioning to 5 mg twice daily -Cardiology recommendations appreciated -Vascular surgery recommendations appreciated -Patient is not a candidate for IVC filter, she has no DVTs based on lower extremity Doppler ultrasound, -Echocardiogram showed normal LVEF, with no signs of right heart strain, mild LVH #Leukopenia This is baseline based on review of old records #LINDA on CKD Renal function is at baseline #Hypokalemia Resolved #Chronic medical problems Continue current medical regimen Diet: Heart healthy DVT prophylaxis: Eliquis, Alps CODE STATUS: Full code Problem List: 1. Pulmonary emboli Pain Ratin Pain Location: none Pain Goal: Remain pain free Pain Plan: pain pathway Tomorrow's Labs & Rationales: none Timbo Fritz MD 10/13/17 1252: Attending MD Review Statement Attending Statement Attending MD Statement: examined this patient, discuss w/resident/PA/PHARMACY TECHNICIAN PER DIEM, agreed w/resident/PA/PHARMACY TECHNICIAN PER DIEM, reviewed EMR data (avail) Attending Assessment/Plan: 87F PMH HTN, PE in 2014, ischemic CVA in 2014 & 2016, paroxysmal atrial fibrillation on Eliquis, first-degree heart block and RBBB s/p MRI compatible dual-chamber pacemaker placement on 08/22/17 presenting with chest pain on breathing and SOB, found to have acute worsening of pulmonary embolism failing Eliquis. Hemodynamically stable, otherwise asymptomatic, benign exam, no EKG changes. Patient feels better today. Able to ambulate without chest pain. 1. Acute bilateral pulmonary embolism without cor pulmonale 2. Pleuritic chest pain Plan - Discharge home - Eliquis full dose on discharge - Continue home medications
[2017-10-13 08:25] LABS: ABSOLUTE BASOPHIL COUNT 0 /CUMM (0.0-0.2); ABSOLUTE EOSINOPHIL COUNT 0.1 /CUMM (0.0-0.7); ABSOLUTE GRANULOCYTE CT 1.3 /CUMM (1.4-6.5); ABSOLUTE LYMPH COUNT 1.1 /CUMM (1.2-3.4); ABSOLUTE MONOCYTE COUNT 0.4 /CUMM (0.10-0.60); BASOPHIL % 0.8 % (0.0-2.0); EOSINOPHIL % 3.6 % (0-5); GRANULOCYTE % 43.2 % (42.2-75.2); HEMATOCRIT 29.8 % (37-47); MEAN CORPUSCULAR HGB 32.3 PG (27.0-31.0); MEAN CORPUSCULAR HGB CONC 32.8 G/DL (33.0-37.0); MEAN CORPUSCULAR VOLUME 98.5 FL (81.0-99.0); MEAN PLATELET VOLUME 8.8 FL (7.4-10.4); RBC DISTRIBUTION WIDTH 13.1 % (11.5-14.5); RED BLOOD CELL CT 3.02 /CUMM (4.20-5.40); WHITE BLOOD CELL COUNT 2.9 /CUMM (4.8-10.8)
--- NOTE | 2017-10-13 09:12 | PN- Cardiology ---
Subjective Subjective: Telemetry reviewed. Sinus rhythm throughout. Patient ambulating with physical therapy. Objective Vital Signs and I&Os Vital Signs Date Time Temp Pulse Resp B/P B/P Pulse O2 O2 Flow FiO2 Mean Ox Delivery Rate 10/13 0630 98.1 80 16 106/62 98 10/12 2216 112/62 10/12 2210 98.1 77 17 88/56 97 10/12 2200 98/60 10/12 1439 98.8 90 20 122/72 98 Room Air 10/12 1008 Room Air Room Air 10/12 0956 97.8 60 20 120/74 10/12 0956 97.8 60 20 120/74 Intake & Output 10/13 1600 10/13 0800 10/13 0000 10/12 1600 10/12 0800 10/12 0000 Intake Total 220 220 847.3 180 200 Output Total 300 Balance 220 220 847.3 -120 200 Intake, IV 167.3 180 Intake, Oral 220 220 680 0 200 Number 0 1 Bowel Movements Output, Urine 300 Patient 123 lb 119 lb 132 lb Weight Weight Bed scale Measurement Method Physical Exam: On general exam patient appeared comfortable sitting in a chair anxious to go home Head normocephalic atraumatic Eyes sclera anicteric conjunctiva showed no pallor extraocular muscles were normal Neck no carotid bruits no jugular venous distention no thyroid masses Chest lungs were clear bilaterally Heart regular rhythm with a 1/6 systolic murmur Abdomen soft no organomegaly bowel sounds normal Extremities no clubbing cyanosis or edema Neurological no gross motor or sensory deficits Current Medications: Current Medications Sig/Sarah Start time Last Medication Dose Route Stop Time Status Admin Apixaban 10 MG BID 10/12 2099 AC 10/12 PO 10/19 0901 2216 Heparin Sodium 25,000 UNIT Q24H 10/11 2000 DC 10/11 (Porcine) IV 10/12 2300 2151 Sodium Chloride 500 ML Hydrochlorothiazide 12.5 MG DAILY 10/12 899 AC 10/12 PO 0956 Latanoprost 1 GTT AT BEDTIME 10/12 2099 AC 10/12 OPH 2217 Losartan Potassium 50 MG DAILY 10/12 899 AC 10/12 PO 0956 Nifedipine 60 MG DAILY 10/12 899 AC 10/12 PO 0956 Vitamin E 400 IU DAILY 10/12 899 AC 10/12 PO 0956 Results Last 48 Hrs of Labs/Mics: Laboratory Tests 10/13/17 0654: Anion Gap 9, Estimated GFR 43 L, BUN/Creatinine Ratio 25.0, CBC w Diff Pending, WBC Pending, RBC Pending, Hgb Pending, Hct Pending, MCV Pending, MCH Pending, MCHC Pending, RDW Pending, Plt Count Pending, MPV Pending, Gran % Pending, Lymphocytes % Pending, Monocytes % Pending, Eosinophils % Pending, Basophils % Pending, Absolute Granulocytes Pending, Absolute Lymphocytes Pending, Absolute Monocytes Pending, Absolute Eosinophils Pending, Absolute Basophils Pending 10/12/17 1615: APTT > 120 *H 10/12/17 0707: Anion Gap 11, Estimated GFR 47 L, BUN/Creatinine Ratio 23.6, PT 14.5 H, INR 1.33 H, CBC w Diff NO MAN DIFF REQ, RBC 3.00 L, MCV 98.2, MCH 32.4 H, MCHC 33.0, RDW 12.9, MPV 8.7, Gran % 44.3, Lymphocytes % 38.8, Monocytes % 13.3 H, Eosinophils % 2.3, Basophils % 1.3, Absolute Granulocytes 1.3 L, Absolute Lymphocytes 1.2, Absolute Monocytes 0.4, Absolute Eosinophils 0.1, Absolute Basophils 0 10/12/17 0255: APTT 99 H 10/11/17 2310: Troponin I 0.03 10/11/17 1649: Troponin I 0.04 10/11/17 1300: Anion Gap 16, Estimated GFR 36 L, BUN/Creatinine Ratio 20.7, Glucose 106 H, Calcium 10.1, Magnesium 1.9, Total Bilirubin 0.5, AST 26, ALT 31, Alkaline Phosphatase 53, Troponin I 0.02, Aft-O-Uxzwryofqtc Pept 717 H, Total Protein 8.6 H, Albumin 4.6, Globulin 4.0, Albumin/Globulin Ratio 1.2, D-Dimer High Sensitivty 984 H, CBC w Diff NO MAN DIFF REQ, RBC 3.37 L, MCV 99.1 H, MCH 32.9 H, MCHC 33.2, RDW 12.8, MPV 8.8, Gran % 52.6, Lymphocytes % 31.8, Monocytes % 13.2 H, Eosinophils % 1.6, Basophils % 0.8, Absolute Granulocytes 2.0, Absolute Lymphocytes 1.2, Absolute Monocytes 0.5, Absolute Eosinophils 0.1, Absolute Basophils 0 10/11/17 1242: Magnesium Cancelled, Kmg-Z-Urnqtbawmxc Pept Cancelled Assessment/Plan Assessment/Plan In summary this 87-year-old female has the following problems 1. 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 Paroxysmal atrial fibrillation on Eliquis 4. Remote CVA 5. Hypertension 6. History of mild aortic dilatation I believe the patient is stable. Echocardiogram has shown no evidence of right ventricular enlargement. Oxygen saturations on room air are satisfactory. He is on appropriate dose of anticoagulant treating acute DVT with transitional doses as outlined. If she ambulates satisfactory I think she is appropriate for discharge. Continue telemetry? Yes
[2017-10-13 09:22] LABS: PLATELET COUNT 159 /CUMM (130-400)
[2017-10-13] MEDS ORDERED: ELIQUIS5 M1 PO ×3 (09:44→17:05)
[2017-10-13 09:48] VITALS: BP 106/52
--- NOTE | 2017-10-13 11:57 | Patient Discharge Instructions ---
Discharge Instructions General Discharge Information You were seen/treated for: PE Special Instructions: Follow-up with Dr. White within 1 week of discharge. Follow-up with your primary care physician within 1 week of discharge. Call your doctor or return to the ER if you experience any significant bleeding. We are increasing your eliquis dose. You will be on 10 mg twice a day until . Then take 5 mg twice per day. Acute Coronary Syndrome Inclusion Criteria At DC or during hospital stay patient has or had the following: ACS DIAGNOSIS No Discharge Core Measures Meds if any: Prescribed or Continued at Discharge Meds if any: NOT Prescribed or Continued at Discharge Congestive Heart Failure Inclusion Criteria At DC or during hospital stay patient has or had the following: CHF DIAGNOSIS No Discharge Core Measures Meds if any: Prescribed or Continued at Discharge Meds if any: NOT Prescribed or Continued at Discharge Cerebrovascular accident Inclusion Criteria At DC or during hospital stay patient has or had the following: CVA/TIA Diagnosis No Discharge Core Measures Meds if any: Prescribed or Continued at Discharge Meds if any: NOT Prescribed or Continued at Discharge Venous thromboembolism Inclusion Criteria VTE Diagnosis Yes VTE Type Pulmonary Embolism VTE Confirmed by (Test) CT CHEST ANGIOGRAM Discharge Core Measures - Per Current guidelines, there needs to be overlap - treatment for the first 5 days of Warfarin therapy. - If discharged on Warfarin prior to 5 days of - overlap therapy, the patient will need to be - assessed for post discharge needs including - *Post discharge parental anticoagulation - *Warfarin and/or parental anticoagulation education - *Follow up date to check INR post discharge At least 5 days overlap therapy as Inpatient No Why was Parental Med stopped Other Anticoagulant given Meds if any: Prescribed or Continued at Discharge Note: Overlap Therapy is Warfarin and Anticoagulant Meds if any: NOT Prescribed or Continued at Discharge
== END 2017-10-13 17:07 | disposition home health service (06) | DRG 176 ==
LOC: ERH 12:09 → 1NO 16:59 → ERHI 16:59 → ENRESERV 18:07 → ENTRNSPT 19:47 → EDTRNSPT 20:24 → EDTRNSPTSTS 20:24 → 1NO 20:27 → CMPTRNSPT 20:48 → ENPENDDIS 10-13 12:01 → ENTRNSPT 10-13 16:58 → EDTRNSPTSTS 10-13 17:01 → EDTRNSPT 10-13 17:01 → 1NO 10-13 17:07 → CMPTRNSPT 10-13 17:22
PROVIDERS: Dermatology; Internal Medicine; Physician Assistant; Student in an Organized Health Care Education/Training Program
DX: I26.99 Other pulmonary embolism without acute cor pulmonale (principal); I48.0 Paroxysmal atrial fibrillation; N18.3 Chronic kidney disease, stage 3 (moderate); I45.10 Unspecified right bundle-branch block; H40.9 Unspecified glaucoma; I12.9 Hypertensive chronic kidney disease with stage 1 through stage 4 chronic kidney disease, or unspecified chronic kidney disease; I69.392 Facial weakness following cerebral infarction; I44.0 Atrioventricular block, first degree; Z95.0 Presence of cardiac pacemaker; H35.30 Unspecified macular degeneration; Z86.718 Personal history of other venous thrombosis and embolism; Z86.711 Personal history of pulmonary embolism; I77.819 Aortic ectasia, unspecified site; Z79.01 Long term (current) use of anticoagulants; Z90.710 Acquired absence of both cervix and uterus
CPT/HCPCS: 1NP; 36415; 36592; 71046; 82436; 93005; 93010; 93306; 93970; 96360; 97110-GO; 97116-GO; 97161-GP; J1644; J7040

== ENCOUNTER 2017-10-13 21:22 | Observation (INO) | payer OTHER, MEDICARE ==
[~2017-10-13] VITALS: Ht 157.5 cm; Wt 55.9 kg
--- NOTE | 2017-10-13 23:18 | ED AMS/SEIZURE/WEAK/DIZZY ---
History of Present Illness General Chief Complaint: Seizure Stated Complaint: SEIZURE HALF HR AGO Source: patient, family, old records Exam Limitations: no limitations Vital Signs & Intake/Output Vital Signs & Intake/Output Vital Signs Date Time Temp Pulse Resp B/P B/P Pulse O2 O2 Flow FiO2 Mean Ox Delivery Rate 10/13 2133 97.6 78 18 135/72 96 Room Air ED Intake and Output 10/14 0000 10/13 1200 Intake Total 0 Output Total Balance 0 Intake, Oral 0 Patient 124 lb Weight Weight Estimated Measurement Method Allergies Coded Allergies: NO KNOWN ALLERGIES (UNKNOWN 08/18/17) Reconcile Medications Apixaban (Eliquis) 5 MG TABLET 1 TAB PO BID PE .. Calcium Carbonate/Vitamin D3 (Calcium 500 + D Tablet) (Unknown Strength) TABLET (Unknown Dose) PO DAILY SUPPLEMENT (Reported) Dorzolamide HCl/Timolol Maleat (Cosopt Eye Drops) 22.3 MG-6.8 MG/ML DROPS 1 GTT OU BID BOTH EYES (Reported) Latanoprost 0.005 % DROPS 1 GTT OU QPM BOTH EYES (Reported) Multivitamin-Min/Iron/FA/Vit K (Multi-Day Plus Minerals Tablet) 18 MG IRON-400 MCG-25 MCG TABLET 1 TAB PO DAILY SUPPLEMENT (Reported) Nifedipine (Nifedipine ER) 60 MG TAB.ER.24 1 TAB PO DAILY BP (Reported) Valsartan/Hydrochlorothiazide (Valsartan-Hctz 160-12.5 MG Tab) 160 MG-12.5 MG TABLET 1 TAB PO DAILY BP (Reported) Vitamin E Mixed (Vitamin E) (Unknown Strength) TABLET (Unknown Dose) PO DAILY SUPPLEMENT (Reported) Triage Note: RECEIVED 87 YO FEMALE WITH FAMILY C/O SHE WAS DISCHARGED FROM [facility] ABOUT 3 HOURS AGO. 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 PT BASELINE PRESENTLY. PT WAS ADMITTED FOR A P.E. Triage Nurses Notes Reviewed? yes Onset: Abrupt Duration: minute(s): Timing: single episode today Injury Environment: home Severity: moderate HPI: 87yo female with hx of PEs on eliquis, afib s/p pacemaker, CVA, HTN presents to ED after seizure like activity while at home prior to arrival. Patient was discharged early this morning after being admitted for multiple PEs. While admitted she was on heparin. After discharge her dose of eliquis 2.5mg was increased to 10mg BID. A few minutes after dinner patient was sitting in her recliner when daughter noted that she began having "convulsing" activity and was unresponsive. Daughter states that up her lower extremities were shaking and patient was unresponsive for about 1-2 minutes. Patient states that prior to this episode she was feeling in her usual state of health. Patient states that when she woke up she heard her daughter yelling and was wondering why she was yelling, she felt fine. After this episode patient had urge to have bowel movement. There was no vomiting or coughing episode. Patient denies dyspnea, aspiration, chest pain, abdominal pain, headache, visual changes. (Shanthi Black) Past History Travel History Traveled to [place] past 21 day No Medical History Any Pertinent Medical History? see below for history Neurological: CVA EENT: macular degeneration Cardiovascular: AFIB, hypertension, syncope Respiratory: pulmonary embolism Gastrointestinal: NONE Hepatic: NONE Renal: NONE Musculoskeletal: NONE Psychiatric: NONE Endocrine: NONE Blood Disorders: DVT Cancer(s): NONE HAND SEWER/Reproductive: NONE History of MRSA: No History of VRE: No History of CDIFF: No Surgical History Surgical History: hysterectomy Psychosocial History Who do you live with Daughter What is your primary language Samoan Tobacco Use: Never used Family History Family History, If Any: MOTHER FHx: hypertension Hx Contributory? No (Shanthi Black) Review of Systems Review of Systems Constitutional: Reports: no symptoms. EENTM: Reports: no symptoms. Respiratory: Reports: no symptoms. Cardiovascular: Reports: no symptoms. GI: Reports: see HPI. Genitourinary: Reports: no symptoms. Musculoskeletal: Reports: no symptoms. Skin: Reports: no symptoms. Neurological/Psychological: Reports: see HPI. Hematologic/Endocrine: Reports: no symptoms. Immunologic/Allergic: Reports: no symptoms. All Other Systems: Reviewed and Negative (Shanthi Black) Physical Exam Physical Exam General Appearance: well developed/nourished, no apparent distress, alert, awake Head: atraumatic, normal appearance Eyes: Bilateral: normal appearance, PERRL, EOMI. Ears, Nose, Throat: normal pharynx, hearing grossly normal Neck: normal inspection, supple, full range of motion Respiratory: normal breath sounds, no respiratory distress, lungs clear Cardiovascular: regular rate/rhythm, normal peripheral pulses Peripheral Pulses: 2+ radial (R), 2+ radial (L) Gastrointestinal: normal bowel sounds, soft, non-tender, no organomegaly Back: normal inspection, normal range of motion Extremities: normal range of motion Neurologic/Psych: awake, alert, oriented x 3, drop tester II-XII nml as tested Skin: intact, normal color, warm/dry Core Measures ACS in differential dx? Yes CVA/TIA Diagnosis No Sepsis Present: No Sepsis Focused Exam Completed? No (Alicia HAWLEY,Shanthi Jones) Progress Differential Diagnosis: arrythmia, anemia, CVA/stroke, dehydration, drug intoxication, encephalitis, electrolyte imbalance, hypoglycemia, intracranial Hem., intracranial mass/tumor, pneumonia, sepsis, seizure disorder Plan of Care: Orders Procedure Date/time Status Regular Diet 10/14 B Active Patient Data 10/14 1644 Active MAGNESIUM 10/14 0600 Active CBC WITHOUT DIFFERENTIAL 10/14 0600 Active BASIC ELECTROLYTES PLUS BUN&CR 10/14 0600 Active Pathway - chart 10/14 0049 Active House Staff 10/14 0049 Active OXYGEN SETUP (GEN) 10/14 0037 Active Saline Lock 10/[address] in observation 10/14 0037 Active Vital Signs 10/14 0037 Active Activity/Ambulation 10/14 0037 Active Code Status 10/14 0037 Active Lab Add-on Test 10/14 UNK Active VTE Mechanical Prophylaxis 10/14 UNK Active Seizure Precautions 10/14 UNK Active NIH Stroke Scale 10/14 UNK Active Intake & Output 10/14 UNK Active MAGNESIUM 10/13 2315 Active URINALYSIS 10/13 2304 Complete TROPONIN LEVEL 10/13 2304 Active PROLACTIN 10/13 2304 Active ETHANOL 10/13 2304 Active COMPREHENSIVE METABOLIC PANEL 10/13 2304 Active CBC WITHOUT DIFFERENTIAL 10/13 2304 Complete EKG 10/13 2304 Active Laboratory Tests 10/13/17 2340: Urinalysis LIGHT H, Urine Color YEL, Urine Clarity CLEAR, Urine pH 6.0, Ur Specific [place] 1.010, Urine Protein NEG, Urine Ketones NEG, Urine Nitrite NEG, Urine Bilirubin NEG, Urine Urobilinogen 0.2, Ur Leukocyte Esterase SMALL H, Ur Microscopic SEDIMENT EXAMINED, Urine RBC 1-3, Ur Epithelial Cells FEW, Urine Mucus FEW, Urine Hemoglobin NEG, Urine Glucose NEG 10/13/17 2315: Anion Gap 13, Estimated GFR 36 L, BUN/Creatinine Ratio 26.4 H, Glucose 127 H, Calcium 9.5, Magnesium Pending, Total Bilirubin 0.3, AST 26, ALT 23, Alkaline Phosphatase 56, Troponin I 0.04, Total Protein 7.3, Albumin 4.0, Globulin 3.3, Albumin/Globulin Ratio 1.2, Prolactin 20.9 H, CBC w Diff NO MAN DIFF REQ, RBC 3.29 L, MCV 98.9, MCH 33.2 H, MCHC 33.6, RDW 12.4, MPV 8.7, Gran % 62.7, Lymphocytes % 21.3, Monocytes % 12.8 H, Eosinophils % 1.5, Basophils % 1.7, Absolute Granulocytes 2.9, Absolute Lymphocytes 1.0 L, Absolute Monocytes 0.6, Absolute Eosinophils 0.1, Absolute Basophils 0.1, Serum Alcohol < 10.[address] scan is within normal limits, no acute findings. Chest x-ray shows no evidence of aspiration pneumonia. Patient's labs are stable, troponin enzyme negative. EKG stable compared to previous study. On physical exam the patient is neurologically intact without focal neurologic deficits. She answers questions readily. Patient has no chest pain or shortness of breath. Given new onset seizure-like activity and patient with no history of seizures this patient requires further workup, possible neurology consult, possible head MRI. Spoke with case management who recommended observation. Dr. Alford agrees with the plan of care. Spoke with hospitalist Dr. Senior who recommends telemetry observation. Diagnostic Imaging: Viewed by Me: Radiology Read, CT Scan. Discussed w/RAD: Radiology Read, CT Scan. Radiology Impression: PATIENT: RENETTA MCDONALD PRESENT AGE: 87 PATIENT ACCOUNT NO: [id number] : 31 LOCATION: [facility] ORDERING PHYSICIAN: Shanthi HAWLEY SERVICE DATE: 10/13/17 EXAM TYPE: CAT - CT HEAD WO IV CONTRAST EXAMINATION: CT HEAD WITHOUT CONTRAST CLINICAL INFORMATION: Seizure. COMPARISON: CT head 05/22/2015 TECHNIQUE: Contiguous axial imaging was performed from the skull base to vertex without intravenous administration of contrast. DLP: 638.6 mGy-cm FINDINGS: There is no evidence of acute intracranial hemorrhage or territorial infarction. No abnormal mass effect or midline shift is seen. Brooks to white matter differentiation is well preserved. No extra-axial fluid collections are identified. There is atrophy with prominence of the ventricles and the sulci and hypodensity of the periventricular white matter due to chronic small vessel ischemic disease. There is vascular calcifications of the internal carotid arteries bilaterally. The osseous structures and soft tissues are normal. The mastoid air cells and visualized portions of the paranasal sinuses are well aerated. IMPRESSION: No acute intracranial pathology. DICTATED BY: Renzo Bush MD DATE/TIME DICTATED:2341 DISPENSING LEAD:BULL DATE/TIME TRANSCRIBED:10/13/172341 CONFIDENTIAL, DO NOT COPY WITHOUT APPROPRIATE AUTHORIZATION. <Electronically signed in Other Vendor System> SIGNED BY: Renzo Bush MD 10/13/172348 CXR Impression: PATIENT: RENETTA MCDONALD PRESENT AGE: 87 PATIENT ACCOUNT NO: [id number] : 31 LOCATION: [facility] ORDERING PHYSICIAN: Shanthi HAWLEY SERVICE DATE: 10/13/17 EXAM TYPE: RAD - XRY-CHEST XRAY, TWO VIEWS EXAMINATION: XR CHEST CLINICAL INFORMATION: Seizure after eating. Concern for aspiration. COMPARISON: Chest x-ray 10/11/2017. CTA of chest 10/11/2017 TECHNIQUE: 2 views of the chest were obtained. FINDINGS: Pacemaker leads in right atrium and right ventricle unchanged position. Cardiac and mediastinal contours unchanged. No pulmonary vascular congestion. No infiltrate. No pleural effusion. Compared to prior chest x-ray there is no change. IMPRESSION: No acute abnormality the chest. DICTATED BY: Renzo Bush MD DATE/ TIME DICTATED:10/13/172339 DISPENSING LEAD:BULL DATE/TIME TRANSCRIBED: 10/13/172339 CONFIDENTIAL, DO NOT COPY WITHOUT APPROPRIATE AUTHORIZATION. < Electronically signed in Other Vendor System> SIGNED BY: Renzo Bush MD 2345 Initial ED EKG: sinus rhythm @73bpm, first degree AV block, RBBB, LAFB, nonspecific ST changes (Alicia HAWLEY,Shanthi Jones) Departure Departure Disposition: STILL A PATIENT Condition: Stable Clinical Impression Primary Impression: Seizure Referrals: Martha Bocanegra APRN (PCP/Family) Departure Forms: Customer Survey General Discharge Information Observation Note Spoke With: Sabina Senior MD Physician Advisor Notified: LYUBOV NEUMANN DO Place Patient In: Non-ED OBS Care Area Rationale for Observation: My rational for observation is as follows [new onset seizure-like activity today requiring telemetry monitoring, possible neurology consult, possible head MRI, premature discharge medically unsafe]. 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 I have also reviewed all the pertinent lab results and diagnostic results. I agree with the findings and the plan of care as documented in the PA's/COAL WASHER TENDER's documentation. 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 [] I have reviewed the ED Record and agree with the PA's/COAL WASHER TENDER's documentation. [] Additions or exceptions (if any) to the PAs/COAL WASHER TENDER's note and plan are summarized below: [] (Prashanth CHAMPION,Ciro)
[2017-10-13 23:28] LABS: ABSOLUTE BASOPHIL COUNT 0.1 /CUMM (0.0-0.2); ABSOLUTE EOSINOPHIL COUNT 0.1 /CUMM (0.0-0.7); ABSOLUTE GRANULOCYTE CT 2.9 /CUMM (1.4-6.5); ABSOLUTE MONOCYTE COUNT 0.6 /CUMM (0.10-0.60); BASOPHIL % 1.7 % (0.0-2.0); EOSINOPHIL % 1.5 % (0-5); GRANULOCYTE % 62.7 % (42.2-75.2); HEMATOCRIT 32.5 % (37-47); MEAN CORPUSCULAR HGB 33.2 PG (27.0-31.0); MEAN CORPUSCULAR HGB CONC 33.6 G/DL (33.0-37.0); MEAN CORPUSCULAR VOLUME 98.9 FL (81.0-99.0); MEAN PLATELET VOLUME 8.7 FL (7.4-10.4); RBC DISTRIBUTION WIDTH 12.4 % (11.5-14.5); RED BLOOD CELL CT 3.29 /CUMM (4.20-5.40)
[2017-10-13 23:29] LABS: WHITE BLOOD CELL COUNT 4.6 /CUMM (4.8-10.8)
[2017-10-13 23:36] LABS: PLATELET COUNT 182 /CUMM (130-400)
--- NOTE | 2017-10-13 23:46 | RADIOLOGY REPORT ---
EXAMINATION: XR CHEST CLINICAL INFORMATION: Seizure after eating. Concern for aspiration. COMPARISON: Chest x-ray 10/11/2017. CTA of chest 10/11/2017 TECHNIQUE: 2 views of the chest were obtained. FINDINGS: Pacemaker leads in right atrium and right ventricle unchanged position. Cardiac and mediastinal contours unchanged. No pulmonary vascular congestion. No infiltrate. No pleural effusion. Compared to prior chest x-ray there is no change. IMPRESSION: No acute abnormality the chest.
--- NOTE | 2017-10-13 23:49 | CT SCAN REPORT ---
EXAMINATION: CT HEAD WITHOUT CONTRAST CLINICAL INFORMATION: Seizure. COMPARISON: CT head 05/22/2015 TECHNIQUE: Contiguous axial imaging was performed from the skull base to vertex without intravenous administration of contrast. DLP: 638.6 mGy-cm FINDINGS: There is no evidence of acute intracranial hemorrhage or territorial infarction. No abnormal mass effect or midline shift is seen. Brooks to white matter differentiation is well preserved. No extra-axial fluid collections are identified. There is atrophy with prominence of the ventricles and the sulci and hypodensity of the periventricular white matter due to chronic small vessel ischemic disease. There is vascular calcifications of the internal carotid arteries bilaterally. The osseous structures and soft tissues are normal. The mastoid air cells and visualized portions of the paranasal sinuses are well aerated. IMPRESSION: No acute intracranial pathology.
--- NOTE | 2017-10-14 00:49 | History & Physical ---
Yue CHAMPION,[facility] 10/14/17 0049: General Information and HPI MD Statement: I have seen and personally examined RENETTA TADEO and documented this H&P. The patient is a 87 year old F who presented with a patient stated chief complaint of []. Source of Information: patient, family, old records Exam Limitations: no limitations History of Present Illness: Mrs. 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 Of note the patient was discharged with few hours ago from [facility] after being treated for PE, her Eliquis dose was increased from 2.5 mg twice daily to 10 mg twice daily for 6 days. In addition she was being treated for leukopenia, AK I, hypokalemia. Patient reported feeling in her usual state of health after discharge. She went home took a shower and 8 dinner. Few minutes after her daughter noticed that she started having convulsions. The daughter described as convulsing movements of upper extremities her body was shaking and she was sliding off the chair. Her eyes were closed, she did not bite her tongue or hit her head. It lasted for 1 3 minutes with no loss of bowel or bladder control. The daughter kept calling her name. The patient when regained consciousness was asking her daughter while she is getting, she does not remember what happened during the episode but she remembered exactly what happened right before and after. After his episode the patient asked to use the bathroom, she was feeling weak but was able to go up stairs to the bathroom with her daughter's help. Patient denies any previous similar episodes. Of note the patient was admitted multiple times before for syncopal episode which were thought due to bradycardia, however she still encountered few episodes after getting her pacemaker which were most likely due to vasovagal. Patient denies any fever, chills, nausea, vomiting, tingling, numbness or focal weakness. She also denies any headache or visual changes, or urine or bladder incontinence. Last echo on 10/12/2017 showed:Normal left ventricular systolic function with moderate concentric hypertrophy.Mild biatrial enlargement. No significant valvular abnormalities noted. Vital signs on admission: Blood pressure 135/72, pulse 78, respiratory rate 18, temperature 97.6 pulse ox 96 on room air Labs on admission: WBC 4.6, hemoglobin 10.9, hematocrit 32.5, platelets 182, BEP shows sodium 140, potassium 4, BUN 37, creatinine 1.4, glucose 127, urine analysis and urine tox were normal CT brain:No acute intracranial pathology. Chest x-ray:No acute abnormality the chest. Allergies/Medications Allergies: Coded Allergies: NO KNOWN ALLERGIES (UNKNOWN 08/18/17) Home Med list Apixaban (Eliquis) 5 MG TABLET 1 TAB PO BID PE .. Calcium Carbonate/Vitamin D3 (Calcium 500 + D Tablet) (Unknown Strength) TABLET (Unknown Dose) PO DAILY SUPPLEMENT (Reported) Dorzolamide HCl/Timolol Maleat (Cosopt Eye Drops) 22.3 MG-6.8 MG/ML DROPS 1 GTT OU BID BOTH EYES (Reported) Latanoprost 0.005 % DROPS 1 GTT OU QPM BOTH EYES (Reported) Multivitamin-Min/Iron/FA/Vit K (Multi-Day Plus Minerals Tablet) 18 MG IRON-400 MCG-25 MCG TABLET 1 TAB PO DAILY SUPPLEMENT (Reported) Nifedipine (Nifedipine ER) 60 MG TAB.ER.24 1 TAB PO DAILY BP (Reported) Valsartan/Hydrochlorothiazide (Valsartan-Hctz 160-12.5 MG Tab) 160 MG-12.5 MG TABLET 1 TAB PO DAILY BP (Reported) Vitamin E Mixed (Vitamin E) (Unknown Strength) TABLET (Unknown Dose) PO DAILY SUPPLEMENT (Reported) Past History Travel History Traveled to [place] past 21 day No Medical History Neurological: CVA EENT: macular degeneration Cardiovascular: AFIB, hypertension, syncope Respiratory: pulmonary embolism Gastrointestinal: NONE Hepatic: NONE Renal: NONE Musculoskeletal: NONE Psychiatric: NONE Endocrine: NONE Blood Disorders: DVT Cancer(s): NONE AUTOMOTIVE PORTER/Reproductive: NONE History of MRSA: No History of VRE: No History of CDIFF: No Surgical History Surgical History: hysterectomy Past Family/Social History Family History Relations & Conditions if any MOTHER FHx: hypertension Functional Ability ADLs Independent: dressing, eating, toileting, bathing. Ambulation: cane Review of Systems Review of Systems Constitutional: Denies: no symptoms. Cardiovascular: Denies: no symptoms. Respiratory: Denies: no symptoms. GI: Denies: no symptoms. Musculoskeletal: Denies: no symptoms. Neurological/Psychological: Reports: other (seizure- like activity). Exam & Diagnostic Data Last 24 Hrs of Vital Signs/I&O Vital Signs Date Time Temp Pulse Resp B/P B/P Pulse O2 O2 Flow FiO2 Mean Ox Delivery Rate 10/14 0145 96.9 63 18 136/62 99 Room Air 10/13 2133 97.6 78 18 135/72 96 Room Air Intake & Output 10/14 0800 10/14 0000 10/13 1600 Intake Total 0 Output Total Balance 0 Intake, Oral 0 Patient 124 lb Weight Weight Estimated Measurement Method Physical Exam General Appearance Alert, Oriented X3, Cooperative, No Acute Distress HEENT Atraumatic, PERRLA, EOMI, Mucous Membr. moist/pink Neck Supple, No JVD Cardiovascular Normal S1, Normal S2 Lungs Clear to Auscultation Abdomen Normal Bowel Sounds, Soft, No Tenderness Neurological Normal Speech, Strength at 5/5 X4 Ext, Normal Tone, Sensation Intact, horizontal nystagmus noticed mainly in the left eye, left facial deviation Extremities No Clubbing, No Cyanosis, 2 + pitting edema Vascular Normal Pulses Assessment/Plan Assessment: Mrs. 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 Problem list: Seizure: Being on high-dose Eliquis puts her at increased risk of intracranial hemorrhage however this was ruled out with negative CT, however this seizure were not typical for tonic-clonic, it involves only the lower extremities, with associated with loss of consciousness, no bowel or bladder incontinence. Differential diagnosis includes. Tumor, syncope, stroke, drugs side effects. Hypertension History of stroke A. fib S/P pacemaker, first-degree AV block, RBBB Recently diagnosed PE on Eliquis Plan: Observe on telemetry Continuous telemetry monitoring Cardiology consult appreciated Neurology consult appreciated Frequent neuro checks Seizure precautions Continue home meds including losartan, hydrochlorothiazide, nifedipine, Eliquis 10 mg twice daily Patient is full code DVT prophylaxis with Eliquis Regular diet As Ranked By This Provider Problem List: 1. Seizure Core Measures/Misc (02/13) Acute Coronary Syndrome ACS Diagnosis: No Congestive Heart Failure Congestive Heart Failure Diagnosis No Cerebrovascular Accident CVA/TIA Diagnosis: No VTE (View Protocol) VTE Risk Factors Age>40 No Mechanical VTE Prophylaxis d/t N/A MechProphylax Ordered No VTE Pharm Prophylaxis d/t NA PharmProphylax ordered Sepsis (View protocol) Sepsis Present: No Bashir Chavarria MD 10/14/17 0051: Resident Review Statement Resident Statement: discussed with customer operations intern, agreed with customer operations intern Other Findings: Ms Tadeo is an 86-year-old female with past medical history of hypertension, PE 2015 on Eliquis 2.5 mg twice a day until a recent new PE and now on Eliquis 10 mg twice a day, CKD, glaucoma, stroke with residual left facial droop, recently diagnosed atrial fibrillation, first-degree AV block status post MRI compatible dual-chamber pacemaker in 08/22/17, who was discharged from the hospital earlier today (10/13/17) with a diagnosis of new pulmonary embolism with increased dose of Eliquis according to vascular surgeon. She appearantly had a witnessed episode of a seizure-like activity at home after she got discharged. She took a shower, had her dinner without issues and immediately after which she had an episode lasting abt 1-3 min max with unresponsiveness, sliding down the chair (no fall or head-strike), b/l UE tonic clonic-like movements, no froathing /tongue-bite/uprolling of eyes/incontinence, but had her eyes closed for the entire episode and does not recall the incident. She had a regular BM after the incident per her wishes in the restroom. No symptoms before or after the episode , ROS otherwise is normal. Vitals, PE, imaging as noted above. EKG sinus rhythm, normal rate, RBBB with 1 deg AVB, no ischemic changes noted compared to her last EKG. Pertinent findings: Old deficits from stroke in 2014 and 2015, Right horizontal nystagmus (not sure old or new), poor performance with finger-nose test (?AMD affecting the vision), murmur heard over precordium (old), otherwise within normal limits. She is being observed in the telemetry unit for the management of following issues: # Seizure-like activity Patient's daughter describes what appears to be like a generalized tonic-clonic seizure which was witnessed, a single episode, first time, which warrants further evaluation. So far electrolytes are normal, CAT scan of the head does not show any bleed or gross new anomaly, EKG has no new changes, but prolactin is slightly high. Her new symptoms warrant the following management to begin with: * Place patient in observation in telemetry floor * Monitor for vitals, heart rate/rhythm in tele, I/O * Seizure precautions * Neurochecks q4hr * MRI- head w/o Mati to rule out any tumors * Neurology consult in the morning (defering EEG to neurology) * Pacemaker interrogation can be done in the morning * Cardiology consultation # We will continue rest of her medications from home, that she was recently discharged with. #Housekeeping: Diet: Regular diet DVT ppx: On Eliquis Code status: Full code Sabina Senior 10/14/17 0344: Attending MD Review Statement Attending Statement Attending MD Statement: examined this patient, discuss w/resident/PA/COMPUTER OPERATOR, agreed w/resident/PA/COMPUTER OPERATOR, discussed with family, reviewed EMR data (avail), reviewed images, amended to note Attending Assessment/Plan: CC: Seizure-like activity PMH: HTN, CKD, recurrent PE/DVT, stroke 2 with left-sided facial droop, A. fib, bradycardia S/P pacemaker, multiple syncopal episodes Patient was brought in ER by family for seizure-like activity. Patient was discharged a few hours back, after diagnosis for recurrent PE, dose of Eliquis was increased at the time of discharge, no other changes in medication. After going home patient was apparently all right, she finished her dinner and then all of a sudden her daughters noticed her both upper extremity shaking, head shaking for 1-2 minutes, followed by it she woke up but was confused for 1-2 minutes. She lost consciousness, but she was sitting on the chair so did not fall down, no head trauma, no bladder or bowel incontinence, no tongue bite. She felt generalized weak after this episode but felt like he had to use bathroom immediately afterwards and walked herself 1 flight of stairs. Never had similar episodes in the past. Her previous episodes of syncope were different according to family and patient. Patient is not feeling any prodrome just before the episode. Vitals: Temperature 97.6, pulse 78, RR 18, blood pressure 135/72, saturating 96% on room air. On exam: A O 3, cooperative, no acute distress, neck supple, JVD normal, no lymphadenopathy, mucosa moist, no focal neurological deficit except residual left-sided facial weakness, +1 leg edema, no obvious skin rashes or inflammation CVS: S1-S2, RRR, 3/6 systolic murmur in mitral area radiating to axilla. RS: Clear to auscultate bilaterally. Abdomen: Soft, NT, ND, bowel sounds present. CXR: No acute abnormality the chest. CT head: No acute intracranial pathology. Assessment and plan Patient was brought in by family for seizure-like activity. Patient was discharged from hospital on 10/13/2017, was admitted for recurrent PE, even on Eliquis. Her dose of Eliquis was changed from 2.5 twice a day to 10 mg twice a day. According to daughter who witnessed the episode, patient has tonic-clonic movements of bilateral upper extremity and head shaking but did not have any tonic-clonic movements of his legs, no tongue bite, no bladder or bowel incontinence. The seizure-like episode lasted for 1-2 minutes followed by regaining consciousness but patient was confused for 1-2 minutes thereafter. After that she was feeling generalized weak but could walk. Examination unremarkable. It is unclear if patient had tonic-clonic contraction after syncopal episode or this is seizure. Patient had history of multiple syncope in the past, did not lose any bladder or bowel control, no tongue bite goes more in favor of syncope followed by tonic clonic contractions. If this is new onset seizure at this age, it needs further evaluation with MRI, neurology consult. + Seizure-like activity + Hx of HTN, CKD, recurrent PE/DVT, stroke 2 with left-sided facial droop, A. fib, bradycardia S/P pacemaker, multiple syncopal episodes - Place in observation on telemetry - Every 4 neurochecks - MRI without contrast of brain - Neurology consult - EEG is recommended by neurology - Cardiology consult - Consider interrogative pacemaker - Seizure precaution - Continue Eliquis and all other home medications
[2017-10-14 02:30] VITALS: BP 136/68
[2017-10-14 06:00] VITALS: BP 118/70
[2017-10-14 08:21] LABS: ABSOLUTE BASOPHIL COUNT 0 /CUMM (0.0-0.2); ABSOLUTE EOSINOPHIL COUNT 0.1 /CUMM (0.0-0.7); ABSOLUTE LYMPH COUNT 1.1 /CUMM (1.2-3.4); ABSOLUTE MONOCYTE COUNT 0.4 /CUMM (0.10-0.60); BASOPHIL % 0.6 % (0.0-2.0); GRANULOCYTE % 54.8 % (42.2-75.2); MEAN CORPUSCULAR HGB 32.2 PG (27.0-31.0); MEAN CORPUSCULAR HGB CONC 32.6 G/DL (33.0-37.0); MEAN CORPUSCULAR VOLUME 98.8 FL (81.0-99.0); RBC DISTRIBUTION WIDTH 13.3 % (11.5-14.5); RED BLOOD CELL CT 2.94 /CUMM (4.20-5.40); WHITE BLOOD CELL COUNT 3.6 /CUMM (4.8-10.8)
[2017-10-14 09:34] LABS: PLATELET COUNT 153 /CUMM (130-400)
--- NOTE | 2017-10-14 11:09 | Cons- Cardiology ---
General Information and HPI Consulting Request Date of Consult: 10/14/17 Requested By: Timbo Fritz MD Reason for Consult: syncope Source of Information: patient, old records History of Present Illness: This is a pleasant 87-year-old female with a past medical history of syncope with conduction disease and bradycardia status post permanent pacemaker, prior DVT/pulmonary embolism in 2014 with possible recent recurrence, paroxysmal atrial fibrillation, remote CVA, hypertension, and mild aortic dilatation who was discharged from [facility] yesterday after being found to have a possible recurrent pulmonary embolism by CT scan; she previously been on preventative dose Eliquis which was increased to full dose Eliquis for treatment of acute PE. She was doing well when she got home but after dinner was noted by her daughter to be having convulsions and transient loss of consciousness; the patient does not remember the episode well. She denied remembering any chest pain, dyspnea, or palpitations. No reported loss of bowel or bladder. Denies any slurring of speech. Denies any abdominal pain or subjective fever. Allergies/Medications Allergies: Coded Allergies: NO KNOWN ALLERGIES (UNKNOWN 08/18/17) Home Med List: Apixaban (Eliquis) 5 MG TABLET 1 TAB PO BID PE .. Calcium Carbonate/Vitamin D3 (Calcium 500 + D Tablet) (Unknown Strength) TABLET (Unknown Dose) PO DAILY SUPPLEMENT (Reported) Dorzolamide HCl/Timolol Maleat (Cosopt Eye Drops) 22.3 MG-6.8 MG/ML DROPS 1 GTT OU BID BOTH EYES (Reported) Latanoprost 0.005 % DROPS 1 GTT OU QPM BOTH EYES (Reported) Multivitamin-Min/Iron/FA/Vit K (Multi-Day Plus Minerals Tablet) 18 MG IRON-400 MCG-25 MCG TABLET 1 TAB PO DAILY SUPPLEMENT (Reported) Nifedipine (Nifedipine ER) 60 MG TAB.ER.24 1 TAB PO DAILY BP (Reported) Valsartan/Hydrochlorothiazide (Valsartan-Hctz 160-12.5 MG Tab) 160 MG-12.5 MG TABLET 1 TAB PO DAILY BP (Reported) Vitamin E Mixed (Vitamin E) (Unknown Strength) TABLET (Unknown Dose) PO DAILY SUPPLEMENT (Reported) Current Medications: Current Medications Sig/Sarah Start time Last Medication Dose Route Stop Time Status Admin Acetaminophen 650 MG Q6P PRN 10/14 0615 AC PO Acetaminophen 1,000 MG Q6P PRN 10/14 0615 AC IV Apixaban 10 MG BID 10/14 09 AC 10/14 PO 10/190 09 Calcium/Vitamin D 1 TAB DAILY 10/14 09 AC 10/14 PO 1047 Dorzolamide HCl 1 GTT BID 10/14 09 AC 10/14 OPH 1045 Hydrochlorothiazide 12.5 MG DAILY 10/14 899 AC 10/14 PO 0905 Latanoprost 1 GTT QPM 10/14 2100 AC OPH Losartan Potassium 50 MG DAILY 10/14 899 AC 10/14 PO 0906 Multivitamins 1 TAB DAILY 10/14 09 AC 10/14 PO 1047 Nifedipine 60 MG DAILY 10/14 899 AC 10/14 PO 0906 Vitamin E 100 IU DAILY 10/14 899 AC 10/14 PO 1045 Review of Systems Review of Systems: As per above HPI. 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 Ambulation: cane Exam & Diagnostic Data Vital Signs and I&O Vital Signs Date Time Temp Pulse Resp B/P B/P Pulse O2 O2 Flow FiO2 Mean Ox Delivery Rate 10/14 905 97.5 65 16 118/70 10/14 0906 97.5 65 16 118/70 10/14 0600 97.5 65 16 118/70 97 10/14 0230 98.0 84 18 136/68 98 10/14 0145 96.9 63 18 136/62 99 Room Air 10/13 2133 97.6 78 18 135/72 96 Room Air Intake & Output 10/14 1600 10/14 0800 10/14 0000 10/13 1600 10/13 0800 10/13 0000 Intake Total 200 0 Output Total Balance 200 0 Intake, Oral 200 0 Patient 124 lb 124 lb Weight Weight Estimated Measurement Method Physical Exam: General: no apparent distress. Alert. Eyes: No obvious scleral icterus. HEENT: No jugular venous distention or abnormal jugular venous pulsations. Cardiovascular: Normal intensity S1/S2. Pacemaker noted. Respiratory: Lungs clear to auscultation bilaterally. Abdomen: Soft, nontender with no guarding or rebound tenderness. Musculoskeletal: No clubbing or cyanosis noted Skin: warm Neurologic: No gross focal deficits noted. Lymph: No gross lymphadenopathy. Labs/Sam Results: Laboratory Tests 10/14 10/13 0645 2340 Chemistry Sodium (137 - 145 mmol/L) 143 Potassium (3.5 - 5.1 mmol/L) 3.8 Chloride (98 - 107 mmol/L) 104 Carbon Dioxide (22 - 30 mmol/L) 29 Anion Gap (5 - 16) 11 BUN (7 - 17 mg/dL) 31 H Creatinine (0.5 - 1.0 mg/dL) 1.1 H Estimated GFR (>60 ml/min) 47 L BUN/Creatinine Ratio (7 - 25 %) 28.2 H Magnesium (1.6 - 2.3 mg/dL) 1.8 Hematology CBC w Diff NO MAN DIFF REQ WBC (4.8 - 10.8 /CUMM) 3.6 L RBC (4.20 - 5.40 /CUMM) 2.94 L Hgb (12.0 - 16.0 G/DL) 9.5 L Hct (37 - 47 %) 29.0 L MCV (81.0 - 99.0 FL) 98.8 MCH (27.0 - 31.0 PG) 32.2 H MCHC (33.0 - 37.0 G/DL) 32.6 L RDW (11.5 - 14.5 %) 13.3 Plt Count (130 - 400 /CUMM) 153 MPV (7.4 - 10.4 FL) 9.0 Gran % (42.2 - 75.2 %) 54.8 Lymphocytes % (20.5 - 51.1 %) 32.1 Monocytes % (1.7 - 9.3 %) 10.5 H Eosinophils % (0 - 5 %) 2.0 Basophils % (0.0 - 2.0 %) 0.6 Absolute Granulocytes (1.4 - 6.5 /CUMM) 2.0 Absolute Lymphocytes (1.2 - 3.4 /CUMM) 1.1 L Absolute Monocytes (0.10 - 0.60 /CUMM) 0.4 Absolute Eosinophils (0.0 - 0.7 /CUMM) 0.1 Absolute Basophils (0.0 - 0.2 /CUMM) 0 Urines Urinalysis LIGHT H Urine Color (YEL,AMB,STR) YEL Urine Clarity (CLEAR) CLEAR Urine pH (5.0 - 8.0) 6.0 Ur Specific [place] (1.001 - 1.035) 1.010 Urine Protein (NEG,<30 MG/DL) NEG Urine Ketones (NEG) NEG Urine Nitrite (NEG) NEG Urine Bilirubin (NEG) NEG Urine Urobilinogen (0.1 - 1.0 EU/dl) 0.2 Ur Leukocyte Esterase (NEG) SMALL H Ur Microscopic SEDIMENT EXAMINED Urine RBC (0 - 5 /HPF) 1-3 Ur Epithelial Cells (NONE,FEW) FEW Urine Mucus (FEW,NONE) FEW Urine Hemoglobin (NEG) NEG Urine Glucose (N MG/DL) NEG 10/13 2315 Chemistry Sodium (137 - 145 mmol/L) 140 Potassium (3.5 - 5.1 mmol/L) 4.0 Chloride (98 - 107 mmol/L) 100 Carbon Dioxide (22 - 30 mmol/L) 27 Anion Gap (5 - 16) 13 BUN (7 - 17 mg/dL) 37 H Creatinine (0.5 - 1.0 mg/dL) 1.4 H Estimated GFR (>60 ml/min) 36 L BUN/Creatinine Ratio (7 - 25 %) 26.4 H Glucose (65 - 99 mg/dL) 127 H Lactic Acid (0.7 - 2.1 mmol/L) 1.0 Calcium (8.4 - 10.2 mg/dL) 9.5 Magnesium (1.6 - 2.3 mg/dL) 1.8 Total Bilirubin (0.2 - 1.3 mg/dL) 0.3 AST (14 - 36 U/L) 26 ALT (9 - 52 U/L) 23 Alkaline Phosphatase (<127 U/L) 56 Creatine Kinase (30 - 135 U/L) 102 Troponin I (< 0.11 ng/ml) 0.04 Total Protein (6.3 - 8.2 g/dL) 7.3 Albumin (3.5 - 5.0 g/dL) 4.0 Globulin (1.9 - 4.2 gm/dL) 3.3 Albumin/Globulin Ratio (1.1 - 2.2 %) 1.2 Prolactin (3.0 - 18.6 ng/mL) 20.9 H Hematology CBC w Diff NO MAN DIFF REQ WBC (4.8 - 10.8 /CUMM) 4.6 L RBC (4.20 - 5.40 /CUMM) 3.29 L Hgb (12.0 - 16.0 G/DL) 10.9 L Hct (37 - 47 %) 32.5 L MCV (81.0 - 99.0 FL) 98.9 MCH (27.0 - 31.0 PG) 33.2 H MCHC (33.0 - 37.0 G/DL) 33.6 RDW (11.5 - 14.5 %) 12.4 Plt Count (130 - 400 /CUMM) 182 MPV (7.4 - 10.4 FL) 8.7 Gran % (42.2 - 75.2 %) 62.7 Lymphocytes % (20.5 - 51.1 %) 21.3 Monocytes % (1.7 - 9.3 %) 12.8 H Eosinophils % (0 - 5 %) 1.5 Basophils % (0.0 - 2.0 %) 1.7 Absolute Granulocytes (1.4 - 6.5 /CUMM) 2.9 Absolute Lymphocytes (1.2 - 3.4 /CUMM) 1.0 L Absolute Monocytes (0.10 - 0.60 /CUMM) 0.6 Absolute Eosinophils (0.0 - 0.7 /CUMM) 0.1 Absolute Basophils (0.0 - 0.2 /CUMM) 0.1 Toxicology Serum Alcohol (<10 MG/DL) < 10.0 Diagnostic Data EKG Results Tracing was personally reviewed and shows a sinus rhythm at 73 bpm with first- degree AV block and bifascicular block CXR Results No acute abnormality the chest. Other Results Head CT No acute intracranial pathology. Telemetry tracings were personally reviewed and shows sinus rhythm with intermittent pacing Echocardiogram Normal left ventricular systolic function with moderate concentric hypertrophy.Mild biatrial enlargement. No significant valvular abnormalities noted. Osmany Peters M.D. (Electronically Signed) Final Date: 12 Oct 2017 18:37 Assessment/Plan Assessment/Plan 1. Recurrent loss of consciousness of unclear etiology 2. 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 Paroxysmal atrial fibrillation on Eliquis 4. Remote CVA 5. Hypertension 6. History of mild aortic dilatation 7. History of prior DVT/pulmonary embolism with possible recurrent pulmonary embolism The patient presents with a another loss of consciousness; as her daughter noted that she was having convulsions seizure is in the differential. Follow-up neurology consult. Recommend ordering a [employer] pacemaker interrogation in [facility]. I doubt this episode was due to another pulmonary embolism but recommend obtaining another CT angiogram; if she were found to have evidence of more pulmonary emboli despite the full dose Eliquis we may need to revisit the possibility of IVC filter. Her recent echocardiogram as above showed normal biventricular function. Recommend checking orthostatics. I would recommend discontinuing her nifedipine and she may need less aggressive blood pressure target in the future given the recurrent syncopal episodes. Francis White MD [facility] Consult Acknowledgment - Thank you for your consult request.
--- NOTE | 2017-10-14 14:53 | PN- Att Addend ---
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 Placed in observation overnight after having witnessed tonic-clonic like movements per daughter. Patient has no memory of the event and feels fine. Per daughter patient syncopized while seated and had jerking movements of her head and both arms lasting <1 minute. She had similar episodes in the past that prompted pacemaker placement after patient was found to be bradycardic. Patient has no complaints today and feels well. 1. Syncope 2. Seizure like activity 3. History of PE 4. History of pacemaker placement Plan - Continue on telemetry - Neurology and cardiology consunlts - Continue Eliquis 10mg BID - MRI head if permitted by pacemaker - EEG - Repeat CTA chest - Continue home medications
--- NOTE | 2017-10-14 14:55 | ELECTROENCEPHALOGRAM REPORT ---
Electroencephalogram Report Electroencephalogram Results Date of service: 10/14/17 Attending MD: Timbo Fritz MD Pearl Stringer: Darrick Stahl EEG Number: [id number] Test Utilizes: 10-20 system, 21 lead 18 channel digital recording Pertinent Hx/Physical/Neuro Findings/Clin Diagnosis: seizure Inpatient Medications: Current Medications Sig/Sarah Start time Last Medication Dose Route Stop Time Status Admin Acetaminophen 650 MG Q6P PRN 10/14 0615 AC PO Acetaminophen 1,000 MG Q6P PRN 10/14 0615 AC IV Apixaban 10 MG BID 10/14 09 AC 10/14 PO 10/19 2300 0905 Calcium/Vitamin D 1 TAB DAILY 10/14 09 AC 10/14 PO 1047 Dorzolamide HCl 1 GTT BID 10/14 09 AC 10/14 OPH 1045 Hydrochlorothiazide 12.5 MG DAILY 10/14 0900 AC 10/14 PO 0905 Latanoprost 1 GTT QPM 10/14 2100 AC OPH Losartan Potassium 50 MG DAILY 10/14 09 AC 10/14 PO 0906 Multivitamins 1 TAB DAILY 10/14 0900 AC 10/14 PO 1047 Nifedipine 60 MG DAILY 10/14 0900 DC 10/14 PO 0906 Sodium Chloride 1,000 ML ONCE ONE 10/14 1145 AC 10/14 IV 10/15 0104 1240 Vitamin E 100 IU DAILY 10/14 0900 AC 10/14 PO 1045 Interpretation: EEG in wake and drowsy states During wakefullness, the background is 8-9 cps activity maximal posteriorly During drowsy episodes 2-3 cps activities are seen predominantly frontally Photic stimulation induced no abnormalities No epileptiform activities are seen throughout the recording Impression: Normal EEG in wake and drowsy states
--- NOTE | 2017-10-14 15:25 | CT SCAN REPORT ---
EXAMINATION: CT ANGIOGRAM OF THE CHEST WITH AND WITHOUT CONTRAST (CT PULMONARY ANGIOGRAM FOR PE) CLINICAL INFORMATION: known PE on recent study, recently discharged COMPARISON: CTA chest 10/11/[address] of chest 08/18/2017 TECHNIQUE: Prior to contrast administration, noncontrast localization images were obtained. Subsequently, multidetector volumetric imaging was performed from the thoracic inlet to below the diaphragms following the administration of 95 mL Optiray 320 intravenous contrast. No contrast reaction reported. Sagittal, coronal, and MIP oblique sagittal reformatted images were obtained on the CT workstation, uploaded to PACS, and reviewed. Total exam dose-length product 292.99 mGy-cm. FINDINGS: QUALITY OF STUDY/CONTRAST BOLUS: Satisfactory PULMONARY ARTERIES: There continues to be regression of the pulmonary emboli which were previously seen on the CT exam of 08/18/2017 and 10/11/2017. There is a small nonocclusive peripheral embolus still evident in peripheral segmental branches of the left lower lobe and right lower lobe but the volume has diminished since the prior exam. There is no new emboli evident. THORACIC AORTA: No aneurysm or dissection. LUNG: No focal consolidation, nodules or masses. PLEURA: No pleural effusion or pneumothorax. MEDIASTINUM: Normal heart size. There are pacemaker leads in the right atrium and right ventricle. 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 Left atrium is dilated. The pulmonary outflow tract is prominent measuring 3.5 cm. No pericardial effusion. No hilar or mediastinal lymphadenopathy. No evidence of septal bowing or right heart strain. CHEST WALL/AXILLA: No axillary or internal mammary lymphadenopathy. OSSEOUS STRUCTURES: There is degenerative spondylosis of the spine with multilevel endplate spurring of the vertebrae. UPPER ABDOMEN: There is hypodensity in the upper pole asa of the right kidney. This is unchanged since 08/18/2017. Likely parapelvic cysts. There are 2 cortical cyst also in the upper pole left kidney. IMPRESSION: Continued regression of previously seen pulmonary emboli with small residual remaining in the lower lobes bilateral but no new emboli. VTE: positive
--- NOTE | 2017-10-14 15:40 | PN- Neurology ---
Subjective Subjective: patient not available past 40 minutes Objective Vital Signs and I&Os Vital Signs Date Time Temp Pulse Resp B/P B/P Pulse O2 O2 Flow FiO2 Mean Ox Delivery Rate 10/14 09 97.5 65 16 118/70 10/14 0906 97.5 65 16 118/70 10/14 0600 97.5 65 16 118/70 97 10/14 0230 98.0 84 18 136/68 98 10/14 0145 96.9 63 18 136/62 99 Room Air 10/13 2133 97.6 78 18 135/72 96 Room Air Intake & Output 10/14 1600 10/14 0800 10/14 0000 10/13 1600 10/13 0800 10/13 0000 Intake Total 890 200 0 Output Total 500 Balance 390 200 0 Intake, IV 150 Intake, Oral 740 200 0 Output, Urine 500 Patient 124 lb 124 lb Weight Weight Estimated Measurement Method Current Medications: Current Medications Sig/Sarah Start time Last Medication Dose Route Stop Time Status Admin Acetaminophen 650 MG Q6P PRN 10/14 0615 AC PO Acetaminophen 1,000 MG Q6P PRN 10/14 0615 AC IV Apixaban 10 MG BID 10/14 0900 AC 10/14 PO 10/19 2300 0905 Calcium/Vitamin D 1 TAB DAILY 10/14 0900 AC 10/14 PO 1047 Dorzolamide HCl 1 GTT BID 10/14 09 AC 10/14 OPH 1045 Hydrochlorothiazide 12.5 MG DAILY 10/14 0900 AC 10/14 PO 0905 Latanoprost 1 GTT QPM 10/14 2100 AC OPH Losartan Potassium 50 MG DAILY 10/14 0900 AC 10/14 PO 0906 Multivitamins 1 TAB DAILY 10/14 0900 AC 10/14 PO 1047 Nifedipine 60 MG DAILY 10/14 0900 DC 10/14 PO 0906 Patient Medication 1 ED ONE ONE 10/14 1500 DC 10/14 Teaching ED 10/14 1501 1512 Sodium Chloride 1,000 ML ONCE ONE 10/14 1145 AC 10/14 IV 10/15 0104 1240 Vitamin E 100 IU DAILY 10/14 0900 AC 10/14 PO 1045
--- NOTE | 2017-10-14 18:08 | MRI REPORT ---
EXAMINATION: MR BRAIN WITHOUT AND WITH CONTRAST CLINICAL INFORMATION: Single episode of seizure. History of stroke. Assess for cause. COMPARISON: CT scan of the head 10/13/2017 TECHNIQUE: MRI of the brain was obtained using routine sequences before and after the intravenous administration of 6 mL of Gadavist. FINDINGS: No diffusion abnormalities are identified to suggest an acute or subacute infarct. No mass effect or midline shift is seen. The ventricles and sulci are commensurately prominent consistent with [id number] diffuse volume loss. There are relatively extensive areas of T2 and FLAIR hyperintensity in the periventricular and subcortical white matter, as well as within the [place] consistent with chronic microvascular ischemic disease. There are multiple small lacunar infarcts in the right cerebellar hemisphere and in the right thalamus. No extra-axial fluid collections are seen. On postcontrast imaging, there is no abnormal parenchymal or leptomeningeal enhancement. No pathologic magnetic susceptibility artifact is identified on the gradient refocused acquisition. The craniovertebral junction, marrow signal, and midline structures are normal. There are spondylitic changes in the cervical spine. There has been a right lens extraction. The major intracranial flow-voids at the level of the [place] are preserved. The dural venous sinus flow-voids are maintained. The mastoid air cells and paranasal sinuses are well-aerated. IMPRESSION: 1. There are no acute bleeds or infarcts. There are no masses or areas of abnormal enhancement. 2. There is diffuse volume loss and there are chronic microvascular ischemic changes and lacunar infarcts.
[2017-10-14 22:11] VITALS: BP 108/66
[2017-10-15 06:16] VITALS: BP 110/70
[2017-10-15 08:46] LABS: ABSOLUTE BASOPHIL COUNT 0 /CUMM (0.0-0.2); ABSOLUTE EOSINOPHIL COUNT 0.1 /CUMM (0.0-0.7); ABSOLUTE GRANULOCYTE CT 1.8 /CUMM (1.4-6.5); ABSOLUTE LYMPH COUNT 0.9 /CUMM (1.2-3.4); ABSOLUTE MONOCYTE COUNT 0.4 /CUMM (0.10-0.60); EOSINOPHIL % 3.3 % (0-5); GRANULOCYTE % 55.8 % (42.2-75.2); HEMATOCRIT 29.8 % (37-47); MEAN CORPUSCULAR HGB 32.4 PG (27.0-31.0); MEAN CORPUSCULAR HGB CONC 32.6 G/DL (33.0-37.0); MEAN CORPUSCULAR VOLUME 99.3 FL (81.0-99.0); MEAN PLATELET VOLUME 9.2 FL (7.4-10.4); RED BLOOD CELL CT 3.01 /CUMM (4.20-5.40); WHITE BLOOD CELL COUNT 3.2 /CUMM (4.8-10.8)
--- NOTE | 2017-10-15 09:54 | PN- Housestaff ---
Objective Last 24 Hrs of Vital Signs/I&O Vital Signs Date Time Temp Pulse Resp B/P B/P Pulse O2 O2 Flow FiO2 Mean Ox Delivery Rate 10/15 1048 61 110/70 10/15 0616 97.8 61 25 110/70 99 Room Air 10/14 2211 97.9 74 25 108/66 99 Intake & Output 10/15 1600 10/15 0800 10/15 0000 Intake Total 300 80 Output Total Balance 300 80 Intake, IV 300 Intake, Oral 80 Number 3 Bowel Movements Patient 125 lb Weight Last 24 Hrs of Lab/Sam Results Last 24 Hrs of Labs/Mics: Laboratory Tests 10/15/17656: Anion Gap 11, Estimated GFR 53 L, BUN/Creatinine Ratio 25.0, CBC w Diff NO MAN DIFF REQ, RBC 3.01 L, MCV 99.3 H, MCH 32.4 H, MCHC 32.6 L, RDW 13.0, MPV 9.2 , Gran % 55.8, Lymphocytes % 27.6, Monocytes % 12.3 H, Eosinophils % 3.3, Basophils % 1.0, Absolute Granulocytes 1.8, Absolute Lymphocytes 0.9 L, Absolute Monocytes 0.4, Absolute Eosinophils 0.1, Absolute Basophils 0 Skin: No Rashes, No Breakdown Skin Temp/Moisture Exam: Warm/Dry Sepsis Skin Exam (color): Normal for Ethnicity HEENT: Atraumatic Cardiovascular: Normal S1, Normal S2, systolic murmur Lungs: Clear to Auscultation, Normal Air Movement Abdomen: Soft, No Tenderness Neurological: Normal Speech Extremities: No Edema Last 24 Hrs of Lab/Sam Results Last 24 Hrs of Labs/Mics: Laboratory Tests 10/15/1757: Anion Gap 11, Estimated GFR 53 L, BUN/Creatinine Ratio 25.0, CBC w Diff NO MAN DIFF REQ, RBC 3.01 L, MCV 99.3 H, MCH 32.4 H, MCHC 32.6 L, RDW 13.0, MPV 9.2 , Gran % 55.8, Lymphocytes % 27.6, Monocytes % 12.3 H, Eosinophils % 3.3, Basophils % 1.0, Absolute Granulocytes 1.8, Absolute Lymphocytes 0.9 L, Absolute Monocytes 0.4, Absolute Eosinophils 0.1, Absolute Basophils 0 Assessment/Plan Pain Ratin Pain Location: none Pain Goal: Remain pain free Pain Plan: none
[2017-10-15 11:05] LABS: PLATELET COUNT 128 /CUMM (130-400)
--- NOTE | 2017-10-15 13:42 | PN-Observation ---
Maryanne CHAMPION,[facility] 10/15/17 1338: Observation Note Observation Note _ I have personally examined RENETTA MCDONALD. her disposition is uncertain at this time. Before a determination can be made, she requires continued observation for the following reasons [neuro evaluation for possible seizure]. Assessment/Plan Medical Assessment: 87yo female with PMH of PEs on eliquis, afib s/p pacemaker, CVA, HTN presented to the ED after seizure like activity while at home prior to arrival. Assessment: 1. R/o seizure 2. History of PE on Eliquis 3. History of A.fib 4. 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 History of CVA 6. History of Hypertension Plan: * Continue monitoring on telemetry for now * She did have a mildly elevated prolactin on elevation. However, EEG was normal. * Await neurology evaluation * Await pacemaker interrogation * Repeat CTA showed regression of previously seen pulmonary emboli. * Continue Apixaban 10mg BID, Losartan 50mg and HCTZ 12.5mg daily. * Seizure precautions * Neurochecks q4. * Diet: Regular diet * DVT Prophylaxis: On Eliquis * Code Status: Full Code Problem List: 1. Seizure Subjective Follow-up For: Seizure Tele-Events Since Last Visit: NSR/1st degree AVB with HR 60-78. No overnight events. Subjective: Patient seen and examined at bedside. Reports feeling good. Slept well overnight. Does not have any complaints at this time. Review of Systems Constitutional: Reports: no symptoms. Objective Last 24 Hrs of Vital Signs/I&O Vital Signs Date Time Temp Pulse Resp B/P B/P Pulse O2 O2 Flow FiO2 Mean Ox Delivery Rate 10/15 1048 61 110/70 10/15 0616 97.8 61 25 110/70 99 Room Air 10/14 2211 97.9 74 25 108/66 99 Intake & Output 10/15 1600 10/15 0800 10/15 0000 Intake Total 300 80 Output Total Balance 300 80 Intake, IV 300 Intake, Oral 80 Number 3 Bowel Movements Patient 125 lb Weight Physical Exam General Appearance: Alert, Oriented X3, Cooperative, No Acute Distress Skin: No Rashes, No Breakdown Skin Temp/Moisture Exam: Warm/Dry Sepsis Skin Exam (color): Normal for Ethnicity HEENT: Atraumatic Cardiovascular: Normal S1, Normal S2, systolic murmur Lungs: Clear to Auscultation, Normal Air Movement Abdomen: Soft, No Tenderness Neurological: Normal Speech Extremities: No Edema Last 24 Hrs of Labs/Mics: Laboratory Tests 10/15/17 0657: Anion Gap 11, Estimated GFR 53 L, BUN/Creatinine Ratio 25.0, CBC w Diff NO MAN DIFF REQ, RBC 3.01 L, MCV 99.3 H, MCH 32.4 H, MCHC 32.6 L, RDW 13.0, MPV 9.2 , Gran % 55.8, Lymphocytes % 27.6, Monocytes % 12.3 H, Eosinophils % 3.3, Basophils % 1.0, Absolute Granulocytes 1.8, Absolute Lymphocytes 0.9 L, Absolute Monocytes 0.4, Absolute Eosinophils 0.1, Absolute Basophils 0 Eligio Lozano MD 10/15/17 1410: Attending MD Review Statement Attending Statement Attending MD Statement: examined this patient, discuss w/resident/PA/INVESTMENT COUNSELOR, agreed w/resident/PA/INVESTMENT COUNSELOR, discussed with family, reviewed EMR data (avail), reviewed images, amended to note Attending Assessment/Plan: The patient was seen and discussed with house staff. CTPA shows regression of pulmonary emboli (no new emboli), MRI negative. EEG is negative, however would still be suspicious of underlying seizure. Await neurology input.
[2017-10-15 14:03] VITALS: BP 120/70
--- NOTE | 2017-10-15 14:38 | PN- Cardiology ---
Subjective Subjective: Feeling well. No chest pain. No palpitations. No shortness of breath. No nausea or vomiting. Objective Vital Signs and I&Os Vital Signs Date Time Temp Pulse Resp B/P B/P Pulse O2 O2 Flow FiO2 Mean Ox Delivery Rate 10/15 1403 98.0 79 20 120/70 98 Room Air 10/15 1048 61 110/70 10/15 0616 97.8 61 25 110/70 99 Room Air 10/14 2211 97.9 74 25 108/66 99 Intake & Output 10/15 1600 10/15 0800 10/15 0000 10/14 1600 10/14 0800 10/14 0000 Intake Total 300 80 890 200 0 Output Total 500 Balance 300 80 390 200 0 Intake, IV 300 150 Intake, Oral 80 740 200 0 Number 3 Bowel Movements Output, Urine 500 Patient 125 lb 124 lb 124 lb Weight Weight Estimated Measurement Method Physical Exam: Gen: NAD HEENT: normal Lungs: clear to auscultation, normal resp. effort Heart: RRR, S1, S2, no murmurs Abdomen: Soft, nontender, no masses Extremities: No clubbing, cyanosis, or edema. Neuro: Alert and oriented x 3, cranial nerves intact Current Medications: Current Medications Sig/Sarah Start time Last Medication Dose Route Stop Time Status Admin Acetaminophen 650 MG Q6P PRN 10/14 614 AC PO Acetaminophen 1,000 MG Q6P PRN 10/14 614 AC IV Apixaban 10 MG BID 10/14 09 AC 10/15 PO 10/19 2300 1048 Calcium/Vitamin D 1 TAB DAILY 10/14 899 AC 10/15 PO 1048 Dorzolamide HCl 1 GTT BID 10/14 09 AC 10/15 OPH 1047 Hydrochlorothiazide 12.5 MG DAILY 10/14 09 AC 10/15 PO 1048 Latanoprost 1 GTT QPM 10/14 2100 AC 10/14 OPH 2027 Losartan Potassium 50 MG DAILY 10/14 09 AC 10/15 PO 1048 Multivitamins 1 TAB DAILY 10/14 09 AC 10/15 PO 1048 Patient Medication 1 ED ONE ONE 10/14 1500 DC 10/14 Teaching ED 10/14 1501 1512 Sodium Chloride 1,000 ML ONCE ONE 10/14 1145 DC 10/14 IV 10/15 0104 1240 Vitamin E 100 IU DAILY 10/14 0900 AC 10/15 PO 1048 Results Last 48 Hrs of Labs/Mics: Laboratory Tests 10/15/17 0657: Anion Gap 11, Estimated GFR 53 L, BUN/Creatinine Ratio 25.0, CBC w Diff NO MAN DIFF REQ, RBC 3.01 L, MCV 99.3 H, MCH 32.4 H, MCHC 32.6 L, RDW 13.0, MPV 9.2 , Gran % 55.8, Lymphocytes % 27.6, Monocytes % 12.3 H, Eosinophils % 3.3, Basophils % 1.0, Absolute Granulocytes 1.8, Absolute Lymphocytes 0.9 L, Absolute Monocytes 0.4, Absolute Eosinophils 0.1, Absolute Basophils 0 10/14/17 0645: Anion Gap 11, Estimated GFR 47 L, BUN/Creatinine Ratio 28.2 H, Magnesium 1.8, CBC w Diff NO MAN DIFF REQ, RBC 2.94 L, MCV 98.8, MCH 32.2 H, MCHC 32.6 L, RDW 13.3, MPV 9.0, Gran % 54.8, Lymphocytes % 32.1, Monocytes % 10.5 H, Eosinophils % 2.0, Basophils % 0.6, Absolute Granulocytes 2.0, Absolute Lymphocytes 1.1 L, Absolute Monocytes 0.4, Absolute Eosinophils 0.1, Absolute Basophils 0 10/13/17 2340: Urinalysis LIGHT H, Urine Color YEL, Urine Clarity CLEAR, Urine pH 6.0, Ur Specific [place] 1.010, Urine Protein NEG, Urine Ketones NEG, Urine Nitrite NEG, Urine Bilirubin NEG, Urine Urobilinogen 0.2, Ur Leukocyte Esterase SMALL H, Ur Microscopic SEDIMENT EXAMINED, Urine RBC 1-3, Ur Epithelial Cells FEW, Urine Mucus FEW, Urine Hemoglobin NEG, Urine Glucose NEG 10/13/17 2315: Anion Gap 13, Estimated GFR 36 L, BUN/Creatinine Ratio 26.4 H, Glucose 127 H, Lactic Acid 1.0, Calcium 9.5, Magnesium 1.8, Total Bilirubin 0.3, AST 26, ALT 23 , Alkaline Phosphatase 56, Creatine Kinase 102, Troponin I 0.04, Total Protein 7.3, Albumin 4.0, Globulin 3.3, Albumin/Globulin Ratio 1.2, Prolactin 20.9 H, CBC w Diff NO MAN DIFF REQ, RBC 3.29 L, MCV 98.9, MCH 33.2 H, MCHC 33.6, RDW 12.4, MPV 8.7, Gran % 62.7, Lymphocytes % 21.3, Monocytes % 12.8 H, Eosinophils % 1.5, Basophils % 1.7, Absolute Granulocytes 2.9, Absolute Lymphocytes 1.0 L, Absolute Monocytes 0.6, Absolute Eosinophils 0.1, Absolute Basophils 0.1, Serum Alcohol < 10.0 Recent Imaging Studies: CTA chest: Continued regression of previously seen pulmonary emboli with small residual remaining in the lower lobes bilateral but no new emboli. Pacemaker interrogation revealed 381 short VV intervals over the past month, possibly secondary to double counting R waves, lead fracture, or loose set screw. Assessment/Plan Assessment/Plan Assessment: 1. Recent DVT and pulmonary embolism 2. Paroxysmal atrial fibrillation 3. Syncope 4. Pacemaker interrogation reveals possible rapid rate versus pacemaker malfunction. Plan: * Continue to monitor on telemetry for tachycardia or other arrhythmias * Continue anticoagulation with Eliquis * Continue other cardiac medication Continue telemetry? Yes
--- NOTE | 2017-10-15 16:03 | Cons- Neurology ---
See Addendum General Information and HPI Consulting Request Date of Consult: 10/15/17 Requested By: Timbo Fritz MD History of Present Illness: 86-year-old female presents to hospital after a "convulsive-like episode" She was recently discharged from Hospital She has no recollection of the event She seemed to feel well but then suddenly had a change in mental status Per records she began convulsing while sitting She was sliding off a chair There was no history of tongue biting or urinary incontinence Entire episode lasted between 1 and 3 minutes Patient seemed to awake and no clear history of a post event confusional spell Patient recalls being taken to the hospital No previous convulsive activity documented Patient has had numerous episodes where she seemed to lose consciousness No clear etiology to those events She does have a pacemaker inserted at the events continue There has been no significant head trauma No history of any prodrome prior to the events No dizziness prior to the events Allergies/Medications Allergies: Coded Allergies: NO KNOWN ALLERGIES (UNKNOWN 08/18/17) Home Med List: Apixaban (Eliquis) 5 MG TABLET 1 TAB PO BID PE .. Calcium Carbonate/Vitamin D3 (Calcium 500 + D Tablet) (Unknown Strength) TABLET (Unknown Dose) PO DAILY SUPPLEMENT (Reported) Dorzolamide HCl/Timolol Maleat (Cosopt Eye Drops) 22.3 MG-6.8 MG/ML DROPS 1 GTT OU BID BOTH EYES (Reported) Latanoprost 0.005 % DROPS 1 GTT OU QPM BOTH EYES (Reported) Multivitamin-Min/Iron/FA/Vit K (Multi-Day Plus Minerals Tablet) 18 MG IRON-400 MCG-25 MCG TABLET 1 TAB PO DAILY SUPPLEMENT (Reported) Nifedipine (Nifedipine ER) 60 MG TAB.ER.24 1 TAB PO DAILY BP (Reported) Valsartan/Hydrochlorothiazide (Valsartan-Hctz 160-12.5 MG Tab) 160 MG-12.5 MG TABLET 1 TAB PO DAILY BP (Reported) Vitamin E Mixed (Vitamin E) (Unknown Strength) TABLET (Unknown Dose) PO DAILY SUPPLEMENT (Reported) Current Medications: Current Medications Sig/Sarah Start time Last Medication Dose Route Stop Time Status Admin Acetaminophen 650 MG Q6P PRN 10/14 614 AC PO Acetaminophen 1,000 MG Q6P PRN 10/14 614 AC IV Apixaban 10 MG BID 10/14 0900 AC 10/15 PO 10/19 2300 1048 Calcium/Vitamin D 1 TAB DAILY 10/14 09 AC 10/15 PO 1048 Dorzolamide HCl 1 GTT BID 10/14 09 AC 10/15 OPH 1047 Hydrochlorothiazide 12.5 MG DAILY 10/14 09 AC 10/15 PO 1048 Latanoprost 1 GTT QPM 10/14 2100 AC 10/14 OPH 2027 Losartan Potassium 50 MG DAILY 10/14 899 AC 10/15 PO 1048 Multivitamins 1 TAB DAILY 10/14 09 AC 10/15 PO 1048 Sodium Chloride 1,000 ML ONCE ONE 10/14 1145 DC 10/14 IV 10/15 0104 1240 Vitamin E 100 IU DAILY 10/14 899 AC 10/15 PO 1048 Review of Systems Review of Systems: Denies headache, diplopia, speech difficulty, swallowing difficulty, chest pain, nausea or vomiting, incontinence, fevers or rashes Shortness of breath on exertion, occasional swelling lower extremities Other systems reviewed and negative Past History Travel History Traveled to [place] past 21 day No Medical History Neurological: CVA EENT: macular degeneration Cardiovascular: AFIB, hypertension, syncope Respiratory: pulmonary embolism Gastrointestinal: NONE Hepatic: NONE Renal: NONE Musculoskeletal: NONE Psychiatric: NONE Endocrine: NONE Blood Disorders: DVT Cancer(s): NONE 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 Ambulation: cane Exam & Diagnostic Data Vital Signs and I&O Vital Signs Date Time Temp Pulse Resp B/P B/P Pulse O2 O2 Flow FiO2 Mean Ox Delivery Rate 10/15 1403 98.0 79 20 120/70 98 Room Air 10/15 1048 61 110/70 10/15 0616 97.8 61 25 110/70 99 Room Air 10/14 2211 97.9 74 25 108/66 99 Intake & Output 10/15 1600 10/15 0800 10/15 0000 Intake Total 400 300 80 Output Total Balance 400 300 80 Intake, IV 300 Intake, Oral 400 80 Number 0 3 Bowel Movements Patient 125 lb Weight Alert Comfortable Physical Exam: Alert Comfortable Following all commands Not oriented to day or date Fund of knowledge mildly impaired Heart sounds normal no carotid bruits distal pulses intact Extraocular movements full, pupils equal reactive, fundi benign, visual hutson intact, no facial weakness or facial sensory loss, hearing grossly intact Normal tone and strength upper and lower extremities No sensory loss to light touch bilaterally Deep tendon reflexes 1+ bilateral Coordinative functions upper extremities intact Tented gait was not made due to absence of patient's cane; truncal balance appeared intact Last 48 Hours of Lab Results: Laboratory Tests 10/15 10/14 0657 0645 Chemistry Sodium (137 - 145 mmol/L) 141 143 Potassium (3.5 - 5.1 mmol/L) 4.1 3.8 Chloride (98 - 107 mmol/L) 104 104 Carbon Dioxide (22 - 30 mmol/L) 27 29 Anion Gap (5 - 16) 11 11 BUN (7 - 17 mg/dL) 25 H 31 H Creatinine (0.5 - 1.0 mg/dL) 1.0 1.1 H Estimated GFR (>60 ml/min) 53 L 47 L BUN/Creatinine Ratio (7 - 25 %) 25.0 28.2 H Magnesium (1.6 - 2.3 mg/dL) 1.8 Hematology CBC w Diff NO MAN DIFF REQ NO MAN DIFF REQ WBC (4.8 - 10.8 /CUMM) 3.2 L 3.6 L RBC (4.20 - 5.40 /CUMM) 3.01 L 2.94 L Hgb (12.0 - 16.0 G/DL) 9.7 L 9.5 L Hct (37 - 47 %) 29.8 L 29.0 L MCV (81.0 - 99.0 FL) 99.3 H 98.8 MCH (27.0 - 31.0 PG) 32.4 H 32.2 H MCHC (33.0 - 37.0 G/DL) 32.6 L 32.6 L RDW (11.5 - 14.5 %) 13.0 13.3 Plt Count (130 - 400 /CUMM) 128 L 153 MPV (7.4 - 10.4 FL) 9.2 9.0 Gran % (42.2 - 75.2 %) 55.8 54.8 Lymphocytes % (20.5 - 51.1 %) 27.6 32.1 Monocytes % (1.7 - 9.3 %) 12.3 H 10.5 H Eosinophils % (0 - 5 %) 3.3 2.0 Basophils % (0.0 - 2.0 %) 1.0 0.6 Absolute Granulocytes (1.4 - 6.5 /CUMM) 1.8 2.0 Absolute Lymphocytes (1.2 - 3.4 /CUMM) 0.9 L 1.1 L Absolute Monocytes (0.10 - 0.60 /CUMM) 0.4 0.4 Absolute Eosinophils (0.0 - 0.7 /CUMM) 0.1 0.1 Absolute Basophils (0.0 - 0.2 /CUMM) 0 0 10/13 10/13 2340 2315 Chemistry Sodium (137 - 145 mmol/L) 140 Potassium (3.5 - 5.1 mmol/L) 4.0 Chloride (98 - 107 mmol/L) 100 Carbon Dioxide (22 - 30 mmol/L) 27 Anion Gap (5 - 16) 13 BUN (7 - 17 mg/dL) 37 H Creatinine (0.5 - 1.0 mg/dL) 1.4 H Estimated GFR (>60 ml/min) 36 L BUN/Creatinine Ratio (7 - 25 %) 26.4 H Glucose (65 - 99 mg/dL) 127 H Lactic Acid (0.7 - 2.1 mmol/L) 1.0 Calcium (8.4 - 10.2 mg/dL) 9.5 Magnesium (1.6 - 2.3 mg/dL) 1.8 Total Bilirubin (0.2 - 1.3 mg/dL) 0.3 AST (14 - 36 U/L) 26 ALT (9 - 52 U/L) 23 Alkaline Phosphatase (<127 U/L) 56 Creatine Kinase (30 - 135 U/L) 102 Troponin I (< 0.11 ng/ml) 0.04 Total Protein (6.3 - 8.2 g/dL) 7.3 Albumin (3.5 - 5.0 g/dL) 4.0 Globulin (1.9 - 4.2 gm/dL) 3.3 Albumin/Globulin Ratio (1.1 - 2.2 %) 1.2 Prolactin (3.0 - 18.6 ng/mL) 20.9 H Hematology CBC w Diff NO MAN DIFF REQ WBC (4.8 - 10.8 /CUMM) 4.6 L RBC (4.20 - 5.40 /CUMM) 3.29 L Hgb (12.0 - 16.0 G/DL) 10.9 L Hct (37 - 47 %) 32.5 L MCV (81.0 - 99.0 FL) 98.9 MCH (27.0 - 31.0 PG) 33.2 H MCHC (33.0 - 37.0 G/DL) 33.6 RDW (11.5 - 14.5 %) 12.4 Plt Count (130 - 400 /CUMM) 182 MPV (7.4 - 10.4 FL) 8.7 Gran % (42.2 - 75.2 %) 62.7 Lymphocytes % (20.5 - 51.1 %) 21.3 Monocytes % (1.7 - 9.3 %) 12.8 H Eosinophils % (0 - 5 %) 1.5 Basophils % (0.0 - 2.0 %) 1.7 Absolute Granulocytes (1.4 - 6.5 /CUMM) 2.9 Absolute Lymphocytes (1.2 - 3.4 /CUMM) 1.0 L Absolute Monocytes (0.10 - 0.60 /CUMM) 0.6 Absolute Eosinophils (0.0 - 0.7 /CUMM) 0.1 Absolute Basophils (0.0 - 0.2 /CUMM) 0.1 Toxicology Serum Alcohol (<10 MG/DL) < 10.0 Urines Urinalysis LIGHT H Urine Color (YEL,AMB,STR) YEL Urine Clarity (CLEAR) CLEAR Urine pH (5.0 - 8.0) 6.0 Ur Specific [place] (1.001 - 1.035) 1.010 Urine Protein (NEG,<30 MG/DL) NEG Urine Ketones (NEG) NEG Urine Nitrite (NEG) NEG Urine Bilirubin (NEG) NEG Urine Urobilinogen (0.1 - 1.0 EU/dl) 0.2 Ur Leukocyte Esterase (NEG) SMALL H Ur Microscopic SEDIMENT EXAMINED Urine RBC (0 - 5 /HPF) 1-3 Ur Epithelial Cells (NONE,FEW) FEW Urine Mucus (FEW,NONE) FEW Urine Hemoglobin (NEG) NEG Urine Glucose (N MG/DL) NEG Imaging/Other Studies: MRI brain IMPRESSION: 1. There are no acute bleeds or infarcts. There are no masses or areas of abnormal enhancement. 2. There is diffuse volume loss and there are chronic microvascular ischemic changes and lacunar infarcts. EEG no epileptiform activities Assessment/Plan Assessment: It remains uncertain if these episodes are epileptic in nature or convulsive syncope Patient's ant was at the bedside but did not witness the event was quite upset that an exact diagnosis cannot be made in that the patient is on multiple medications and a pacemaker without resolution of the symptoms Recommendations: Family can consider a trial of an antiepileptic levetiracetam time initial dose at this age to 250 twice a day or Arrange for consultation with [place] [facility] for possible inpatient monitoring to determine if these events are epileptic in nature or not They will consider that option Consult Acknowledgment - Thank you for your consult request.
[2017-10-15 22:06] VITALS: BP 116/70
[2017-10-16 06:56] VITALS: BP 128/72
--- NOTE | 2017-10-16 09:41 | PN-Observation ---
See Addendum Observation Note Observation Note _ I have personally examined RENETTA MCDONALD. her disposition is uncertain at this time. Before a determination can be made, she requires continued observation for the following reasons [decide on seizure prophylaxis]. Assessment/Plan Medical Assessment: 87-year-old woman, with PMH of PEs on eliquis, afib s/p pacemaker, CVA, HTN presented to the ED after witnessed seizure like activity while at home. No seizures noted during her hospital course. No acute events overnight CT head showed no acute intracranial pathology, Normal EEG, MRI head with and without comfort significant for diffuse volume loss and there are chronic microvascular ischemic changes and lacunar infarcts. Despite above negative results we still cannot rule out seizures, per cardiology her pacemaker interrogation also shows possible malfunction Assessment: 1. R/o seizure 2. History of PE on Eliquis 3. History of A.fib 4. 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 History of CVA 6. History of Hypertension Plan: * Continue monitoring on telemetry for now * Neurology recommending trial of levetiracetam or consider [place] [facility] program for further monitoring. Family to make that decision today. * Pacemaker interrogation reveals possible rapid rate versus pacemaker malfunction. * Repeat CTA showed regression of previously seen pulmonary emboli. * Continue Apixaban 10mg BID, Losartan 50mg and HCTZ 12.5mg daily. * Seizure precautions * Neurochecks q4. * Diet: Regular diet * DVT Prophylaxis: On Eliquis * Code Status: Full Code Problem List: 1. Seizure 2. Syncopal episodes Subjective Review of Systems Constitutional: Denies: see HPI. Objective Last 24 Hrs of Vital Signs/I&O Vital Signs Date Time Temp Pulse Resp B/P B/P Pulse O2 O2 Flow FiO2 Mean Ox Delivery Rate 10/16 0906 61 156/64 10/16 0656 98.9 66 18 128/72 98 Room Air 10/15 2206 98.5 71 18 116/70 100 Room Air 10/15 1403 98.0 79 20 120/70 98 Room Air 10/15 1048 61 110/70 Intake & Output 10/16 1600 10/16 0800 10/16 0000 Intake Total 120 240 Output Total Balance 120 240 Intake, Oral 120 240 Patient 123 lb Weight Weight Bed scale Measurement Method Physical Exam General Appearance: Alert, Oriented X3, Cooperative, No Acute Distress Cardiovascular: Regular Rate, Normal S1, Normal S2 Lungs: Clear to Auscultation, Normal Air Movement
[2017-10-16] MEDS ORDERED: KEPPRA250 M1 PO ×2 (12:58→13:09)
--- NOTE | 2017-10-16 12:59 | Patient Discharge Instructions ---
Discharge Instructions General Discharge Information You were seen/treated for: Possible seizure. 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 You should follow up with neurology either Dr. Traylor or [facility] for further evaluation with EEG. Acute Coronary Syndrome Inclusion Criteria At DC or during hospital stay patient has or had the following: ACS DIAGNOSIS No Discharge Core Measures Meds if any: Prescribed or Continued at Discharge Meds if any: NOT Prescribed or Continued at Discharge Congestive Heart Failure Inclusion Criteria At DC or during hospital stay patient has or had the following: CHF DIAGNOSIS No Discharge Core Measures Meds if any: Prescribed or Continued at Discharge Meds if any: NOT Prescribed or Continued at Discharge Cerebrovascular accident Inclusion Criteria At DC or during hospital stay patient has or had the following: CVA/TIA Diagnosis No Discharge Core Measures Meds if any: Prescribed or Continued at Discharge Meds if any: NOT Prescribed or Continued at Discharge Venous thromboembolism Inclusion Criteria VTE Diagnosis No VTE Type NONE VTE Confirmed by (Test) NONE Discharge Core Measures - Per Current guidelines, there needs to be overlap - treatment for the first 5 days of Warfarin therapy. - If discharged on Warfarin prior to 5 days of - overlap therapy, the patient will need to be - assessed for post discharge needs including - *Post discharge parental anticoagulation - *Warfarin and/or parental anticoagulation education - *Follow up date to check INR post discharge At least 5 days overlap therapy as Inpatient No Meds if any: Prescribed or Continued at Discharge Note: Overlap Therapy is Warfarin and Anticoagulant Meds if any: NOT Prescribed or Continued at Discharge
[2017-10-16 14:25] VITALS: BP 126/78
== END 2017-10-16 15:40 | disposition home health service (06) ==
LOC: ERH 21:22 → ERHI 10-14 00:37 → 1NO 10-14 00:37 → ENRESERV 10-14 01:19 → 1NO 10-14 02:45 → ENPENDDIS 10-16 13:09 → ENTRNSPT 10-16 15:30 → 1NO 10-16 15:40 → CMPTRNSPT 10-16 15:49
PROVIDERS: Dermatology; Physician Assistant; Student in an Organized Health Care Education/Training Program
DX: R56.9 Unspecified convulsions (principal); I12.9 Hypertensive chronic kidney disease with stage 1 through stage 4 chronic kidney disease, or unspecified chronic kidney disease; N18.9 Chronic kidney disease, unspecified; H35.30 Unspecified macular degeneration; H40.9 Unspecified glaucoma; Z86.711 Personal history of pulmonary embolism; Z79.01 Long term (current) use of anticoagulants; R55 Syncope and collapse; I69.392 Facial weakness following cerebral infarction; I48.0 Paroxysmal atrial fibrillation; Z95.0 Presence of cardiac pacemaker; I44.0 Atrioventricular block, first degree; I45.10 Unspecified right bundle-branch block
CPT/HCPCS: 70552; 36592; 70553; 71046; 81001; 82436; 93005; 93010; 95816; A9579; G0378; G0480; J0131

== ENCOUNTER 2018-02-09 18:22 | Emergency (ER) | payer OTHER, MEDICARE ==
[~2018-02-09] VITALS: Ht 154.9 cm; Wt 56.2 kg
[~2018-02-09 18:22] MED LIST changes: +KEPPRA250 M1 PO
--- NOTE | 2018-02-09 18:33 | ED GENERAL ADULT ---
History of Present Illness General Chief Complaint: Syncope and Near-Syncope Stated Complaint: BIBA WITH NEAR SYNCOPE Source: patient, family Exam Limitations: no limitations Vital Signs & Intake/Output Vital Signs & Intake/Output Vital Signs Date Time Temp Pulse Resp B/P B/P Pulse O2 O2 Flow FiO2 Mean Ox Delivery Rate 02/09 2215 94 18 106/66 99 Room Air 02/09 2043 98.0 68 17 106/56 100 Room Air 02/09 2005 100 Room Air 02/09 1842 97.5 68 18 129/67 100 Room Air Allergies Coded Allergies: lisinopril (COUGH 02/09/18) Reconcile Medications Apixaban (Eliquis) 5 MG TABLET 1 TAB PO BID PE .. Calcium Carbonate/Vitamin D3 (Calcium 500 + D Tablet) (Unknown Strength) TABLET (Unknown Dose) PO DAILY SUPPLEMENT (Reported) Dorzolamide HCl/Timolol Maleat (Cosopt Eye Drops) 22.3 MG-6.8 MG/ML DROPS 1 GTT OU BID BOTH EYES (Reported) Latanoprost 0.005 % DROPS 1 GTT OU QPM BOTH EYES (Reported) Levetiracetam (Keppra) 250 MG TABLET 1 TAB PO BID seizure . Losartan/Hydrochlorothiazide (Losartan-Hctz 100-12.5 MG Tab) 100 MG-12.5 MG TABLET 1 TAB PO DAILY BP (Reported) Multivitamin-Min/Iron/FA/Vit K (Multi-Day Plus Minerals Tablet) 18 MG IRON-400 MCG-25 MCG TABLET 1 TAB PO DAILY SUPPLEMENT (Reported) Nifedipine (Nifedipine ER) 60 MG TAB.ER.24 1 TAB PO DAILY BP (Reported) Vitamin E Mixed (Vitamin E) (Unknown Strength) TABLET (Unknown Dose) PO DAILY SUPPLEMENT (Reported) Triage Nurses Notes Reviewed? yes Onset: Abrupt Duration: minute(s): Timing: recent history HPI: 02/09/18 87-year-old female presents to the emergency department by ambulance for an episode of near syncope. The patient was standing in her kitchen and felt like she was given a past. No chest pain or shortness of breath. Currently she is asymptomatic. Initial blood pressure revealed hypotension. She has a history of paroxysmal atrial fibrillation, pulmonary embolism, on Eliquis. (Lawrence Boyle DO) Past History Travel History Traveled to [place] past 21 day No Medical History Any Pertinent Medical History? 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 No (Lawrence Boyle DO) Review of Systems Review of Systems Constitutional: Denies: fever. EENTM: Denies: visual changes. Respiratory: Denies: short of breath. Cardiovascular: Denies: chest pain. GI: Denies: abdominal pain. Genitourinary: Reports: no symptoms. Musculoskeletal: Reports: no symptoms. Skin: Reports: no symptoms. Neurological/Psychological: Reports: no symptoms. Hematologic/Endocrine: Reports: no symptoms. Immunologic/Allergic: Reports: no symptoms. (Lawrence Boyle DO) Physical Exam Physical Exam General Appearance: no apparent distress, alert, awake, anxious Head: atraumatic, normal appearance Eyes: Bilateral: normal appearance, PERRL, EOMI. Ears, Nose, Throat: normal pharynx Neck: normal inspection, supple Respiratory: normal breath sounds, chest non-tender, no respiratory distress Cardiovascular: regular rate/rhythm Peripheral Pulses: 4+ radial (R), 4+ radial (L) Gastrointestinal: soft, non-tender Back: normal range of motion Extremities: normal inspection, no edema Neurologic/Psych: no motor/sensory deficits, awake, alert, oriented x 3 Skin: intact, normal color, warm/dry Core Measures ACS in differential dx? Yes CVA/TIA Diagnosis: No Sepsis Present: No Sepsis Focused Exam Completed? No (Lawrence Boyle DO) Progress Differential Diagnoses I considered the following diagnoses in my evaluation of the patient: [ Dysrhythmia, anemia, acute coronary syndrome,] Plan of Care: Orders Procedure Date/time Status TROPONIN LEVEL 02/09 1837 Complete D-DIMER 02/09 1837 Complete COMPREHENSIVE METABOLIC PANEL 02/09 1837 Complete CBC WITHOUT DIFFERENTIAL 02/09 1837 Complete EKG 02/09 1826 Active Laboratory Tests 02/09/18 183: Anion Gap 9, Estimated GFR 36 L, BUN/Creatinine Ratio 18.6, Glucose 120 H, Calcium 9.5, Total Bilirubin 0.4, AST 24, ALT 21, Alkaline Phosphatase 37, Troponin I 0.03, Total Protein 6.9, Albumin 3.8, Globulin 3.1, Albumin/Globulin Ratio 1.2, D-Dimer High Sensitivty 249 H, CBC w Diff NO MAN DIFF REQ, RBC 3.06 L, MCV 97.4, MCH 32.0 H, MCHC 32.8 L, RDW 13.2, MPV 8.9, Gran % 54.2, Lymphocytes % 34.3, Monocytes % 9.7 H, Eosinophils % 1.4, Basophils % 0.4, Absolute Granulocytes 2.0, Absolute Lymphocytes 1.3, Absolute Monocytes 0.4, Absolute Eosinophils 0.1, Absolute Basophils 0 Initial ED EKG: NSR, RBBB, nonspecific ST T wave chg Prior EKG: unchanged (Lawrence Boyle DO) Diagnostic Imaging: Viewed by Me: CT Scan. Discussed w/RAD: CT Scan. Radiology Impression: No CT evidence for pulmonary embolism. Comments: Feels better, no longer dizzy ambulates without difficulty. (Ciro Alford MD) Departure Departure Condition: Stable Clinical Impression Primary Impression: Near syncope Referrals: Martha Bocanegra APRN (PCP/Family) Departure Forms: Customer Survey General Discharge Information Comments The patient was placed on a laboratory monitor, EKG and labs were ordered, the patient was signed out to Dr. Alford at 7 PM. (Lawrence Boyle DO) Departure Time of Disposition: 2223 Disposition: HOME OR SELF CARE (Ciro Alford MD) Critical Care Note Critical Care Note Critical Care Time: 30-74 min (Lawrence Boyle DO)
[2018-02-09 18:56] LABS: ABSOLUTE BASOPHIL COUNT 0 /CUMM (0.0-0.2); ABSOLUTE EOSINOPHIL COUNT 0.1 /CUMM (0.0-0.7); ABSOLUTE LYMPH COUNT 1.3 /CUMM (1.2-3.4); ABSOLUTE MONOCYTE COUNT 0.4 /CUMM (0.10-0.60); BASOPHIL % 0.4 % (0.0-2.0); EOSINOPHIL % 1.4 % (0-5); HEMATOCRIT 29.8 % (37-47); MEAN CORPUSCULAR HGB CONC 32.8 G/DL (33.0-37.0); MEAN CORPUSCULAR VOLUME 97.4 FL (81.0-99.0); MEAN PLATELET VOLUME 8.9 FL (7.4-10.4); PLATELET COUNT 173 /CUMM (130-400); RBC DISTRIBUTION WIDTH 13.2 % (11.5-14.5); RED BLOOD CELL CT 3.06 /CUMM (4.20-5.40); WHITE BLOOD CELL COUNT 3.7 /CUMM (4.8-10.8)
[2018-02-09 19:05] LABS: GRANULOCYTE % 54.2 % (42.2-75.2)
[2018-02-09] MEDS ORDERED: LOSARTAN-HCTZ1 EACH PO (19:16)
--- NOTE | 2018-02-09 21:43 | CT SCAN REPORT ---
EXAMINATION: CT PULMONARY EMBOLISM STUDY CLINICAL INFORMATION: Syncope. COMPARISON: 10/14/2017.. TECHNIQUE: Contiguous helical images of the chest were obtained following the administration of IV contrast. Multiplanar reconstructions were performed. MIPS were obtained and reviewed. DLP: 208 mGy-cm. CONTRAST: 95 mL of Optiray 320 were administered without incident. FINDINGS: The heart is of normal size. There is no pericardial effusion. 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 There are no chest wall masses. Review of lung windows demonstrates that there are neither pleural effusions nor pneumothoraces. There are no consolidations. There is left greater than right bibasilar dependent atelectasis. There are no pulmonary parenchymal nodules. Limited evaluation of the upper abdomen demonstrates that the liver is of normal size and attenuation without focal lesions. Normal adrenal glands are identified. There is stable degenerative changes within the thoracic spine. IMPRESSION: No CT evidence for pulmonary embolism.
[2018-02-09 22:15] VITALS: BP 106/66
== END 2018-02-09 22:38 ==
LOC: ERH 18:22
PROVIDERS: Emergency Medicine
DX: R55 Syncope and collapse (principal); I48.91 Unspecified atrial fibrillation; I10 Essential (primary) hypertension; H35.30 Unspecified macular degeneration; I26.99 Other pulmonary embolism without acute cor pulmonale
CPT/HCPCS: 93005; 93010